=== PATIENT | female | born 1945 | race Two or more races ===

== ENCOUNTER 2017-07-12 12:33 | Emergency (ER) | payer MEDICARE, MEDICAID ==
[~2017-07-12] VITALS: Ht 170.2 cm; Wt 82.7 kg
[~2017-07-12 12:33] MED LIST: ADV50250 IH; ALB0.5UD IH; ALBU18HF2 IH; ALLO300T8 PO; ALPR-623 PO; ARIP30TA7 PO; BUPR150T8 PO; BUPR300T53 PO; CLON-528 PO; FLUP10TA; FLUT16SP10; FURO-150 PO; GLUC1KIT IM; HYDR-565 PO; INSU100V37 SQ; LAMO200T2 PO; LEVO150T73 PO; NAPR220C15 PO; OMEP20CA10 PO; PIOG15TA8 PO; POTASSIUM CHLORIDE PO; PRAV10TA38 PO; PRIM50TA PO; PRIM50TA31 PO; RANO500T3 PO; ROTI1PAT12 TD; SITA25TA3 PO; SPIIN INH; TOP100T PO; TOPI100T18 PO; VARE1TAB11 PO; ZOLP10TA5 PO; [UNRECOGNIZED DRUG - CODE] OP
[2017-07-12] MEDS ORDERED: LIDOcaine 5% patch TP ONE (13:10)
[2017-07-12] MEDS ORDERED: acetaminophen 325mg tablet PO ONE (13:10)
[2017-07-12] MEDS ORDERED: ACET-2765 PO (14:06)
[2017-07-12] MEDS ORDERED: LIDO700A32 TOP (14:06)
[2017-07-12 16:26] VITALS: BP 172/99
== END 2017-07-12 16:27 | disposition home or self-care (01) ==
LOC: ER 12:34
DX: M79.1 Myalgia (principal); R07.81 Pleurodynia; M54.5 Low back pain; G89.29 Other chronic pain; R30.0 Dysuria; R31.9 Hematuria, unspecified; I11.0 Hypertensive heart disease with heart failure; I50.9 Heart failure, unspecified; J44.9 Chronic obstructive pulmonary disease, unspecified; E11.9 Type 2 diabetes mellitus without complications; Z98.890 Other specified postprocedural states; Z79.899 Other long term (current) drug therapy; Z88.0 Allergy status to penicillin; Z88.1 Allergy status to other antibiotic agents
CPT/HCPCS: 71100; 82948; 99284

== ENCOUNTER 2017-08-03 17:56 | Inpatient (IN) | payer MEDICARE, MEDICAID ==
[~2017-08-03] VITALS: Ht 160 cm; Wt 80.0 kg
[~2017-08-03 17:56] MED LIST changes: +ACET-2765 PO; +LIDO700A32 TOP
[2017-08-03 18:56] LABS: BASOPHILS % (AUTO) 0.3 % (0-1); EOSINOPHILS % (AUTO) 0.5 % (0-6); HEMATOCRIT 38.3 % (35.0-45.0); HEMOGLOBIN 12.7 g/dl (12.0-16.0); LYMPHOCYTES # (AUTO) 0.9 X10'3 (1.1-4.8); LYMPHOCYTES % (AUTO) 10.7 % (21-51); MEAN CORPUSCULAR HEMOGLOBIN 31.9 PG (27.0-31.0); MEAN CORPUSCULAR HGB CONC 33.2 % (33.0-36.5); MEAN CORPUSCULAR VOLUME 95.9 FL (78-98); MEAN PLATELET VOLUME 7.1 FL (7.4-10.4); MONOCYTES # (AUTO) 0.4 X10'3 (0-0.9); MONOCYTES % (AUTO) 4.7 % (2-12); NEUTROPHILS # (AUTO) 7.3 X10'3 (1.8-7.7); NEUTROPHILS % (AUTO) 83.8 % (42-75); PLATELET COUNT 242 X10'3 (140-440); RED BLOOD COUNT 3.99 X10'6 (4.20-5.60); RED CELL DISTRIBUTION WIDTH 14.9 % (11.5-14.5); WHITE BLOOD COUNT 8.7 X10'3 (4.5-11.0)
[2017-08-03 19:20] LABS: ALANINE AMINOTRANSFERASE 32 U/L (12-78); ALBUMIN 3.2 G/DL (3.4-5.0); ALBUMIN/GLOBULIN RATIO 1.1 (1.1-1.5); ALKALINE PHOSPHATASE 75 IU/L (46-116); ANION GAP 7 (8-16); ASPARTATE AMINO TRANSFERASE 22 U/L (10-37); BILIRUBIN,TOTAL 0.4 MG/DL (0.1-1.0); BLOOD UREA NITROGEN 13 MG/DL (7-18); CALCIUM 9.4 MG/DL (8.5-10.1); CHLORIDE 107 MMOL/L (99-107); ETHANOL < 0.010 GM/DL (0.0-0.010); GLUCOSE 90 MG/DL (70-104); POTASSIUM 4.1 MMOL/L (3.5-5.1); SODIUM 140 MMOL/L (135-145); TOTAL CARBON DIOXIDE 26.2 MMOL/L (24-32); TOTAL PROTEIN 6.1 G/DL (6.4-8.2); eGFR 40 ML/MIN
[2017-08-03 19:21] LABS: ACETAMINOPHEN < 2.0 UG/ML (10-30)
[2017-08-03 20:13] LABS: CLARITY,URINE CLEAR (Clear); COLOR,URINE YELLOW (Yellow); GLUCOSE, URINE NEGATIVE (Neg); KETONES,URINE TRACE mg/dl (Neg); LEUKOCYTE ESTERASE ,URINE NEGATIVE (Neg); NITRITES, URINE NEGATIVE (Neg); OCCULT BLOOD,URINE NEGATIVE (Neg); PH,URINE 6.5 (4.8-8.0); PROTEIN,URINE NEGATIVE (Neg); UROBILINOGEN,URINE 0.2 E.U/dL (0.2-1.0)
[2017-08-03 20:17] LABS: UA COLLECTION TYPE CLN CATCH MIDSTREAM
[2017-08-03 20:30] LABS: URINE AMPHETAMINE SCREEN NEGATIVE (Neg); URINE BARBITUATE SCREEN NEGATIVE (Neg); URINE BENZODIAZEPINES SCREEN NEGATIVE (Neg); URINE CANNABINOID SCREEN NEGATIVE (Neg); URINE COCAINE SCREEN NEGATIVE (Neg); URINE METHADONE SCREEN NEGATIVE (Neg); URINE OPIATE SCREEN NEGATIVE (Neg); URINE PHENCYCLIDINE SCREEN NEGATIVE (Neg)
[2017-08-03] MEDS ORDERED: LAMO100T2 PO (20:50)
[2017-08-03] MEDS ORDERED: TRAZ-146 PO (20:50)
[2017-08-03] MEDS ORDERED: NITR0.4T51 SL (20:59)
[2017-08-03] MEDS ORDERED: OXYB5TAB11 PO (20:59)
[2017-08-03] MEDS ORDERED: HUM7525 SQ (20:59)
[2017-08-03] MEDS ORDERED: METO-539 PO (20:59)
[2017-08-03] MEDS ORDERED: ASPI-1265 PO (20:59)
[2017-08-03] MEDS ORDERED: ARIP10TA15 PO (20:59)
[2017-08-03] MEDS ORDERED: CHOL400C8 PO (20:59)
[2017-08-03] MEDS ORDERED: LOSA25TA96 PO (20:59)
[2017-08-03] MEDS ORDERED: ATRIN INH (20:59)
[2017-08-03] MEDS ORDERED: ISOS30TA9 PO (20:59)
[2017-08-03] MEDS ORDERED: ASCO1TAB42 (20:59)
[2017-08-03] MEDS ORDERED: OMEG1CAP13 PO (20:59)
[2017-08-03] MEDS: normal saline 1000ml 1,000 ML IV SCH (22:12)
[2017-08-03] MEDS ORDERED: albuterol 2.5 MG/3 ML nebule NEB PRN (22:15)
[2017-08-03] MEDS ORDERED: ipratropium/albuterol 3ml nebule NEB PRN (22:15)
[2017-08-03] MEDS ORDERED: ondansetron/PF 4mg/2ml inj IV PRN (22:15)
[2017-08-03] MEDS ORDERED: magnesium Cl slow-release 64mg tablet PO PRN (22:15)
[2017-08-03] MEDS ORDERED: potassium Cl 20 mEq SR tablet PO PRN ×2 (22:15)
[2017-08-03] MEDS ORDERED: mag hydrox/Alum hydrox/simeth 30ml oral suspension PO PRN (22:15)
[2017-08-03] MEDS ORDERED: potassium Cl 40MEQ/NS 500ml 500 ML IV PRN ×2 (22:15)
[2017-08-03] MEDS ORDERED: magnesium 2GM in 50ml NS 50 ML IV PRN (22:15)
[2017-08-03] MEDS ORDERED: magnesium 4gm in 100ml NS 100 ML IV PRN (22:15)
[2017-08-03] MEDS ORDERED: magnesium hydroxide 30ml (MOM) UD suspension PO PRN (22:15)
[2017-08-03] MEDS ORDERED: nitroGLYCERIN 0.2mg/hour patch TD ONE (22:50)
[2017-08-04] VITALS (7 sets, daily range): BP systolic 91–145; BP diastolic 48–64
[2017-08-04 01:09] LABS: ALANINE AMINOTRANSFERASE 42 U/L (12-78); ALBUMIN 3.4 G/DL (3.4-5.0); ALBUMIN/GLOBULIN RATIO 1.2 (1.1-1.5); ALKALINE PHOSPHATASE 79 IU/L (46-116); ANION GAP 8 (8-16); ASPARTATE AMINO TRANSFERASE 34 U/L (10-37); BILIRUBIN,TOTAL 0.5 MG/DL (0.1-1.0); BLOOD UREA NITROGEN 12 MG/DL (7-18); CALCIUM 9.9 MG/DL (8.5-10.1); CHLORIDE 108 MMOL/L (99-107); GLUCOSE 71 MG/DL (70-104); MAGNESIUM 1.9 MG/DL (1.5-2.4); POTASSIUM 3.6 MMOL/L (3.5-5.1); SODIUM 142 MMOL/L (135-145); TOTAL PROTEIN 6.3 G/DL (6.4-8.2); TROPONIN I < 0.04 NG/ML (0.0-0.05); eGFR 44 ML/MIN
[2017-08-04 03:21] LABS: BASOPHILS % (AUTO) 0.3 % (0-1); EOSINOPHILS # (AUTO) 0.1 X10'3 (0-0.9); EOSINOPHILS % (AUTO) 1.3 % (0-6); HEMATOCRIT 35.4 % (35.0-45.0); HEMOGLOBIN 11.7 g/dl (12.0-16.0); LYMPHOCYTES # (AUTO) 1.6 X10'3 (1.1-4.8); LYMPHOCYTES % (AUTO) 18.4 % (21-51); MEAN CORPUSCULAR HGB CONC 33.2 % (33.0-36.5); MEAN CORPUSCULAR VOLUME 96.4 FL (78-98); MEAN PLATELET VOLUME 7.3 FL (7.4-10.4); MONOCYTES # (AUTO) 0.4 X10'3 (0-0.9); NEUTROPHILS # (AUTO) 6.5 X10'3 (1.8-7.7); PLATELET COUNT 210 X10'3 (140-440); RED BLOOD COUNT 3.67 X10'6 (4.20-5.60); RED CELL DISTRIBUTION WIDTH 14.8 % (11.5-14.5); WHITE BLOOD COUNT 8.6 X10'3 (4.5-11.0)
[2017-08-04] MEDS: ipratropium 0.5 MG/2.5ML nebule IH SCH ×4 (07:38→21:17)
[2017-08-04] MEDS: K and/or MAG REPLACEMENT MC SCH (08:00)
[2017-08-04] MEDS: aripiprazole 5mg tablet PO SCH (08:23)
[2017-08-04] MEDS: allopurinol 300 MG tablet PO SCH (08:24)
[2017-08-04] MEDS: aspirin 81mg tab.chew PO SCH (08:25)
[2017-08-04] MEDS: pantoprazole 40mg Tablet.DR PO SCH (08:25)
[2017-08-04] MEDS: levoTHYROXINE 25mcg tablet PO SCH (08:26)
[2017-08-04] MEDS: losartan 50mg tablet PO SCH (08:27)
[2017-08-04] MEDS: metoprolol succinate 25mg (24-HOUR) SR. Tablet PO SCH (08:27)
[2017-08-04] MEDS: heparin, porcine 5000 units/ml vial SQ SCH ×2 (08:29→20:25)
[2017-08-04] MEDS: normal saline 1000ml 1,000 ML IV SCH (08:44)
[2017-08-05 02:00] VITALS: BP 104/51
[2017-08-05 05:26] LABS: BASOPHILS % (AUTO) 0.5 % (0-1); EOSINOPHILS # (AUTO) 0.4 X10'3 (0-0.9); EOSINOPHILS % (AUTO) 5.2 % (0-6); HEMATOCRIT 36.9 % (35.0-45.0); HEMOGLOBIN 12.4 g/dl (12.0-16.0); LYMPHOCYTES # (AUTO) 1.6 X10'3 (1.1-4.8); LYMPHOCYTES % (AUTO) 22.4 % (21-51); MEAN CORPUSCULAR HEMOGLOBIN 32.2 PG (27.0-31.0); MEAN CORPUSCULAR HGB CONC 33.6 % (33.0-36.5); MEAN CORPUSCULAR VOLUME 95.9 FL (78-98); MEAN PLATELET VOLUME 7.7 FL (7.4-10.4); MONOCYTES # (AUTO) 0.3 X10'3 (0-0.9); MONOCYTES % (AUTO) 4.7 % (2-12); NEUTROPHILS # (AUTO) 4.9 X10'3 (1.8-7.7); NEUTROPHILS % (AUTO) 67.2 % (42-75); PLATELET COUNT 227 X10'3 (140-440); RED BLOOD COUNT 3.85 X10'6 (4.20-5.60); RED CELL DISTRIBUTION WIDTH 15.1 % (11.5-14.5); WHITE BLOOD COUNT 7.2 X10'3 (4.5-11.0)
[2017-08-05 05:47] LABS: ALANINE AMINOTRANSFERASE 30 U/L (12-78); ALBUMIN 3.1 G/DL (3.4-5.0); ALKALINE PHOSPHATASE 73 IU/L (46-116); ANION GAP 11 (8-16); ASPARTATE AMINO TRANSFERASE 20 U/L (10-37); BILIRUBIN,TOTAL 0.3 MG/DL (0.1-1.0); BLOOD UREA NITROGEN 12 MG/DL (7-18); BUN/CREATININE RATIO 10.9 (6.6-38.0); CALCIUM 9.2 MG/DL (8.5-10.1); CHLORIDE 110 MMOL/L (99-107); GLUCOSE 106 MG/DL (70-104); POTASSIUM 3.6 MMOL/L (3.5-5.1); SODIUM 143 MMOL/L (135-145); TOTAL CARBON DIOXIDE 22.2 MMOL/L (24-32); TOTAL PROTEIN 6.2 G/DL (6.4-8.2); eGFR 49 ML/MIN
[2017-08-05] MEDS: acetaminophen 325mg tablet PO PRN ×2 (06:23→20:33)
[2017-08-05 07:00] VITALS: BP 129/53
[2017-08-05] MEDS: levoTHYROXINE 25mcg tablet PO SCH (07:30)
[2017-08-05] MEDS: pantoprazole 40mg Tablet.DR PO SCH (07:31)
[2017-08-05] MEDS: allopurinol 300 MG tablet PO SCH (07:31)
[2017-08-05] MEDS: aripiprazole 5mg tablet PO SCH (07:31)
[2017-08-05] MEDS: aspirin 81mg tab.chew PO SCH (07:32)
[2017-08-05] MEDS: losartan 50mg tablet PO SCH (07:32)
[2017-08-05] MEDS: metoprolol succinate 25mg (24-HOUR) SR. Tablet PO SCH (07:32)
[2017-08-05] MEDS: heparin, porcine 5000 units/ml vial SQ SCH ×2 (07:34→20:34)
[2017-08-05] MEDS: K and/or MAG REPLACEMENT MC SCH (08:00)
[2017-08-05] MEDS: ipratropium 0.5 MG/2.5ML nebule IH SCH ×4 (08:34→20:33)
[2017-08-05 11:00] VITALS: BP 147/56
[2017-08-05] MEDS: bisacodyl 10mg suppository rectal RC STA ×2 (14:16→20:33)
[2017-08-05] MEDS ORDERED: lactulose 20gm/30ml cup PO ONE (14:20)
[2017-08-05 15:00] VITALS: BP 158/88
[2017-08-05 18:00] VITALS: BP 128/75
[2017-08-05] MEDS ORDERED: insulin glargine (Lantus) pen - multi-dose SQ SCH (21:00)
[2017-08-05] MEDS ORDERED: insulin Lispro (HumaLOG) vial - multi-dose SQ SCH (21:05)
[2017-08-05] MEDS ORDERED: glucagon, human recombinant 1mg kit SUBCUT PRN (21:05)
[2017-08-05] MEDS ORDERED: dextrose ORAL solution 15 GM/59 ML bottle PO PRN ×2 (21:05)
[2017-08-05] MEDS ORDERED: MESSAGE TO PHARMACY PO ONE (21:05)
[2017-08-05] MEDS ORDERED: dextrose 50%-water 50ml dispensing syringe IV PRN ×2 (21:05)
[2017-08-05 22:00] VITALS: BP 147/56
[2017-08-06 02:00] VITALS: BP 110/51
[2017-08-06 05:28] LABS: BASOPHILS % (AUTO) 0.4 % (0-1); EOSINOPHILS # (AUTO) 0.3 X10'3 (0-0.9); EOSINOPHILS % (AUTO) 3.7 % (0-6); HEMATOCRIT 37.3 % (35.0-45.0); HEMOGLOBIN 12.6 g/dl (12.0-16.0); LYMPHOCYTES # (AUTO) 1.6 X10'3 (1.1-4.8); LYMPHOCYTES % (AUTO) 22.6 % (21-51); MEAN CORPUSCULAR HEMOGLOBIN 32.1 PG (27.0-31.0); MEAN CORPUSCULAR HGB CONC 33.7 % (33.0-36.5); MEAN CORPUSCULAR VOLUME 95.1 FL (78-98); MEAN PLATELET VOLUME 7.6 FL (7.4-10.4); MONOCYTES # (AUTO) 0.4 X10'3 (0-0.9); MONOCYTES % (AUTO) 6.1 % (2-12); NEUTROPHILS # (AUTO) 4.9 X10'3 (1.8-7.7); NEUTROPHILS % (AUTO) 67.2 % (42-75); PLATELET COUNT 215 X10'3 (140-440); RED BLOOD COUNT 3.92 X10'6 (4.20-5.60); RED CELL DISTRIBUTION WIDTH 15.1 % (11.5-14.5); WHITE BLOOD COUNT 7.3 X10'3 (4.5-11.0)
[2017-08-06 06:07] LABS: ALANINE AMINOTRANSFERASE 25 U/L (12-78); ALBUMIN/GLOBULIN RATIO 0.9 (1.1-1.5); ALKALINE PHOSPHATASE 77 IU/L (46-116); ANION GAP 7 (8-16); ASPARTATE AMINO TRANSFERASE 14 U/L (10-37); BILIRUBIN,TOTAL 0.3 MG/DL (0.1-1.0); BLOOD UREA NITROGEN 10 MG/DL (7-18); BUN/CREATININE RATIO 9.1 (6.6-38.0); CALCIUM 9.2 MG/DL (8.5-10.1); CHLORIDE 112 MMOL/L (99-107); GLUCOSE 108 MG/DL (70-104); MAGNESIUM 2.2 MG/DL (1.5-2.4); POTASSIUM 3.7 MMOL/L (3.5-5.1); SODIUM 145 MMOL/L (135-145); TOTAL CARBON DIOXIDE 26.3 MMOL/L (24-32); TOTAL PROTEIN 6.2 G/DL (6.4-8.2); eGFR 49 ML/MIN
[2017-08-06 07:00] VITALS: BP 134/54
[2017-08-06] MEDS: levoTHYROXINE 25mcg tablet PO SCH (07:02)
[2017-08-06] MEDS: pantoprazole 40mg Tablet.DR PO SCH (07:02)
[2017-08-06] MEDS: metoprolol succinate 25mg (24-HOUR) SR. Tablet PO SCH (07:27)
[2017-08-06] MEDS: aripiprazole 5mg tablet PO SCH (07:27)
[2017-08-06] MEDS: aspirin 81mg tab.chew PO SCH (07:27)
[2017-08-06] MEDS: allopurinol 300 MG tablet PO SCH (07:27)
[2017-08-06] MEDS: losartan 50mg tablet PO SCH (07:27)
[2017-08-06] MEDS: heparin, porcine 5000 units/ml vial SQ SCH (07:33)
[2017-08-06] MEDS: ipratropium 0.5 MG/2.5ML nebule IH SCH (09:15)
[2017-08-06] MEDS: acetaminophen 325mg tablet PO PRN (11:22)
== END 2017-08-06 12:03 | DRG 918 ==
LOC: ER 17:56 → ED HOLD 22:12 → PCU 3S 23:10
PROVIDERS: ADMIT Internal Medicine; ATTEND Internal Medicine
DX: T50.992A Poisoning by other drugs, medicaments and biological substances, intentional self-harm, initial encounter (principal); N17.9 Acute kidney failure, unspecified; I50.9 Heart failure, unspecified; F20.9 Schizophrenia, unspecified; E11.9 Type 2 diabetes mellitus without complications; I11.0 Hypertensive heart disease with heart failure; F31.9 Bipolar disorder, unspecified; E78.5 Hyperlipidemia, unspecified; F41.9 Anxiety disorder, unspecified; I25.10 Atherosclerotic heart disease of native coronary artery without angina pectoris; J44.9 Chronic obstructive pulmonary disease, unspecified; K59.00 Constipation, unspecified; G89.29 Other chronic pain; M10.9 Gout, unspecified; M19.90 Unspecified osteoarthritis, unspecified site; Z60.2 Problems related to living alone; Z88.1 Allergy status to other antibiotic agents; Z88.0 Allergy status to penicillin; Z91.048 Other nonmedicinal substance allergy status; Z79.4 Long term (current) use of insulin; Z79.82 Long term (current) use of aspirin; Z79.899 Other long term (current) drug therapy; Z87.891 Personal history of nicotine dependence; Y92.89 Other specified places as the place of occurrence of the external cause
CPT/HCPCS: 36415; 70450; 74021; 80053; 80305; 80320; 80329; 81003; 82948; 83036; 83735; 84443; 84484; 85025; 87070; 93005; 93306; 94640; 94760; 95816; 99285; J1644; J1815; J7030

== ENCOUNTER 2017-08-06 12:19 | Inpatient (IN) | payer MEDICARE, MEDICAID ==
[~2017-08-06] VITALS: Ht 180.3 cm; Wt 76.7 kg
[~2017-08-06 12:19] MED LIST changes: -ACET-2765 PO; -ADV50250 IH; -ALB0.5UD IH; -ALBU18HF2 IH; -ALPR-623 PO; +ARIP10TA15 PO; -ARIP30TA7 PO; +ASCO1TAB42; +ASPI-1265 PO; +ATRIN INH; -BUPR150T8 PO; +CHOL400C8 PO; -CLON-528 PO; -FLUP10TA; -FLUT16SP10; -FURO-150 PO; -GLUC1KIT IM; +HUM7525 SQ; -HYDR-565 PO; -INSU100V37 SQ; +ISOS30TA9 PO; +LAMO100T2 PO; -LAMO200T2 PO; -LIDO700A32 TOP; +LOSA25TA96 PO; +METO-539 PO; -NAPR220C15 PO; +NITR0.4T51 SL; +OMEG1CAP13 PO; +OXYB5TAB11 PO; -PIOG15TA8 PO; -POTASSIUM CHLORIDE PO; -PRIM50TA PO; -PRIM50TA31 PO; -RANO500T3 PO; -ROTI1PAT12 TD; -SITA25TA3 PO; -SPIIN INH; -TOP100T PO; +TRAZ-146 PO; -VARE1TAB11 PO; -ZOLP10TA5 PO; -[UNRECOGNIZED DRUG - CODE] OP
[2017-08-06] MEDS ORDERED: mag hydrox/Alum hydrox/simeth 30ml oral suspension PO PRN (14:50)
[2017-08-06 15:57] VITALS: BP 125/59
[2017-08-06] MEDS ORDERED: ipratropium/albuterol 3ml nebule NEB PRN (17:15)
[2017-08-06] MEDS ORDERED: ipratropium 0.5 MG/2.5ML nebule IH SCH (19:00)
[2017-08-06] MEDS: oxybutynin 5mg tablet PO SCH (19:09)
[2017-08-06] MEDS: OMEGA-3/DHA/EPA/FISH OIL 1 EACH CAPSULE.DR PO SCH (19:09)
[2017-08-06] MEDS: ascorbic acid 500mg tablet PO SCH (19:09)
[2017-08-06] MEDS: nitroGLYCERIN 0.4mg SUBLingual tab SL PRN (19:10)
[2017-08-06 20:02] VITALS: BP 186/95
[2017-08-06] MEDS: lamoTRIgine 100mg tablet PO SCH (20:07)
[2017-08-06] MEDS: atorvastatin 10mg tablet PO SCH (20:08)
[2017-08-06] MEDS: vitamin E 400 unit capsule PO SCH (20:08)
[2017-08-06] MEDS ORDERED: traZODone 50mg tablet PO SCH (21:00)
[2017-08-07] MEDS: levoTHYROXINE 25mcg tablet PO SCH (06:54)
[2017-08-07] MEDS: pantoprazole 40mg Tablet.DR PO SCH (06:54)
[2017-08-07 07:11] VITALS: BP 140/65
[2017-08-07] MEDS: vitamin E 400 unit capsule PO SCH ×3 (08:40→21:20)
[2017-08-07] MEDS: aspirin 81mg tab.chew PO SCH (08:40)
[2017-08-07] MEDS: cholecalciferol (vitamin D) 400 unit tablet PO SCH (08:40)
[2017-08-07] MEDS: losartan 50mg tablet PO SCH (08:40)
[2017-08-07] MEDS: ascorbic acid 500mg tablet PO SCH ×3 (08:40→21:20)
[2017-08-07] MEDS: allopurinol 300 MG tablet PO SCH (08:40)
[2017-08-07] MEDS: aripiprazole 5mg tablet PO SCH (08:41)
[2017-08-07] MEDS: metoprolol succinate 25mg (24-HOUR) SR. Tablet PO SCH (08:41)
[2017-08-07] MEDS: oxybutynin 5mg tablet PO SCH ×2 (08:41→21:19)
[2017-08-07] MEDS: OMEGA-3/DHA/EPA/FISH OIL 1 EACH CAPSULE.DR PO SCH ×3 (08:41→21:20)
[2017-08-07 10:21] LABS: CHOL/HDL RATIO 2.5 (0.00-4.99); CHOLESTEROL 124 MG/DL (0-200); HDL CHOLESTEROL 49 MG/DL (35-60); LDL CHOLESTEROL 58 MG/DL (50-100); TRIGLYCERIDES 144 MG/DL (20-135)
[2017-08-07] MEDS: acetaminophen 325mg tablet PO PRN ×2 (11:06→18:47)
[2017-08-07 13:08] VITALS: BP 157/63
[2017-08-07] MEDS: nitroGLYCERIN 0.4mg SUBLingual tab SL PRN (18:47)
[2017-08-07 20:00] VITALS: BP 159/67
[2017-08-07] MEDS ORDERED: traZODone 50mg tablet PO SCH (21:00)
[2017-08-07] MEDS: mirtazapine 15mg tablet PO SCH (21:19)
[2017-08-07] MEDS: atorvastatin 10mg tablet PO SCH (21:19)
[2017-08-07] MEDS: lamoTRIgine 100mg tablet PO SCH (21:20)
[2017-08-08] MEDS ORDERED: glucagon, human recombinant 1mg kit SUBCUT PRN (00:05)
[2017-08-08] MEDS ORDERED: dextrose ORAL solution 15 GM/59 ML bottle PO PRN ×2 (00:05)
[2017-08-08] MEDS ORDERED: insulin Lispro (HumaLOG) vial - multi-dose SQ SCH (00:05)
[2017-08-08] MEDS ORDERED: dextrose 50%-water 50ml dispensing syringe IV PRN ×2 (00:05)
[2017-08-08] MEDS ORDERED: MESSAGE TO PHARMACY PO ONE (00:05)
[2017-08-08 07:25] VITALS: BP 145/85
[2017-08-08] MEDS: pantoprazole 40mg Tablet.DR PO SCH (07:49)
[2017-08-08] MEDS: levoTHYROXINE 25mcg tablet PO SCH (07:49)
[2017-08-08] MEDS: losartan 50mg tablet PO SCH (08:00)
[2017-08-08] MEDS: OMEGA-3/DHA/EPA/FISH OIL 1 EACH CAPSULE.DR PO SCH ×2 (08:00→20:26)
[2017-08-08] MEDS: ascorbic acid 500mg tablet PO SCH ×2 (08:00→20:27)
[2017-08-08] MEDS: aripiprazole 5mg tablet PO SCH ×3 (08:00→09:34)
[2017-08-08] MEDS: vitamin E 400 unit capsule PO SCH ×2 (08:00→20:27)
[2017-08-08] MEDS: metoprolol succinate 25mg (24-HOUR) SR. Tablet PO SCH (08:00)
[2017-08-08] MEDS: cholecalciferol (vitamin D) 400 unit tablet PO SCH (08:00)
[2017-08-08] MEDS: oxybutynin 5mg tablet PO SCH ×2 (08:00→20:28)
[2017-08-08] MEDS: nitroGLYCERIN 0.4mg SUBLingual tab SL PRN (08:15)
[2017-08-08] MEDS: aspirin 81mg tab.chew PO SCH (08:30)
[2017-08-08] MEDS: allopurinol 300 MG tablet PO SCH (08:30)
[2017-08-08] MEDS: acetaminophen 325mg tablet PO PRN ×2 (09:26→16:00)
[2017-08-08] MEDS: magnesium hydroxide 30ml (MOM) UD suspension PO PRN (11:04)
[2017-08-08 19:30] VITALS: BP 175/74
[2017-08-08] MEDS: atorvastatin 10mg tablet PO SCH (20:26)
[2017-08-08] MEDS: mirtazapine 15mg tablet PO SCH (20:26)
[2017-08-08] MEDS: lamoTRIgine 100mg tablet PO SCH (20:26)
[2017-08-08] MEDS: traZODone 50mg tablet PO SCH (20:27)
[2017-08-08] MEDS ORDERED: aripiprazole 5mg tablet PO SCH (21:00)
[2017-08-08] MEDS ORDERED: Insulin Detemir pen SQ SCH (21:00)
[2017-08-09 03:11] VITALS: BP 167/75
[2017-08-09] MEDS: nitroGLYCERIN 0.4mg SUBLingual tab SL PRN ×3 (04:10→04:51)
[2017-08-09 04:36] VITALS: BP 179/79
[2017-08-09 04:44] VITALS: BP 170/76
[2017-08-09 04:59] VITALS: BP 170/70
[2017-08-09] MEDS: acetaminophen 325mg tablet PO PRN ×2 (05:05→21:40)
[2017-08-09] MEDS: levoTHYROXINE 25mcg tablet PO SCH (07:45)
[2017-08-09] MEDS: pantoprazole 40mg Tablet.DR PO SCH (07:45)
[2017-08-09] MEDS: NOVOLOG FLEX SQ SCH ×3 (07:52→17:40)
[2017-08-09] MEDS ORDERED: dextrose ORAL solution 15 GM/59 ML bottle PO PRN (07:55)
[2017-08-09] MEDS ORDERED: dextrose 50%-water 50ml dispensing syringe IV PRN ×2 (07:55)
[2017-08-09 08:00] VITALS: BP 186/72
[2017-08-09] MEDS: losartan 50mg tablet PO SCH (08:24)
[2017-08-09] MEDS: vitamin E 400 unit capsule PO SCH ×2 (08:24→21:35)
[2017-08-09] MEDS: cholecalciferol (vitamin D) 400 unit tablet PO SCH (08:24)
[2017-08-09] MEDS: OMEGA-3/DHA/EPA/FISH OIL 1 EACH CAPSULE.DR PO SCH ×2 (08:24→21:35)
[2017-08-09] MEDS: allopurinol 300 MG tablet PO SCH (08:24)
[2017-08-09] MEDS: oxybutynin 5mg tablet PO SCH ×2 (08:25→21:34)
[2017-08-09] MEDS: metoprolol succinate 25mg (24-HOUR) SR. Tablet PO SCH (08:25)
[2017-08-09] MEDS: ascorbic acid 500mg tablet PO SCH ×2 (08:25→21:36)
[2017-08-09] MEDS: aspirin 81mg tab.chew PO SCH (08:25)
[2017-08-09] MEDS: insulin NPH/REG insulin (NovoLIN 70/30) 10ml vial SQ SCH ×2 (10:01→21:29)
[2017-08-09] MEDS: magnesium hydroxide 30ml (MOM) UD suspension PO PRN (17:17)
[2017-08-09 20:00] VITALS: BP 119/61
[2017-08-09] MEDS: mirtazapine 15mg tablet PO SCH (21:37)
[2017-08-09] MEDS: atorvastatin 10mg tablet PO SCH (21:37)
[2017-08-09] MEDS: aripiprazole 5mg tablet PO SCH (21:37)
[2017-08-09] MEDS: lamoTRIgine 100mg tablet PO SCH (21:37)
[2017-08-09] MEDS: traZODone 50mg tablet PO SCH (21:37)
[2017-08-09] MEDS: LORazepam 0.5 MG tablet PO PRN (21:55)
[2017-08-10] MEDS: NOVOLOG FLEX SQ SCH ×3 (07:22→17:21)
[2017-08-10] MEDS: pantoprazole 40mg Tablet.DR PO SCH (07:25)
[2017-08-10] MEDS: levoTHYROXINE 25mcg tablet PO SCH (07:25)
[2017-08-10] MEDS: losartan 50mg tablet PO SCH (07:26)
[2017-08-10] MEDS: insulin NPH/REG insulin (NovoLIN 70/30) 10ml vial SQ SCH ×2 (08:00→20:00)
[2017-08-10] MEDS: oxybutynin 5mg tablet PO SCH ×2 (09:07→21:33)
[2017-08-10] MEDS: OMEGA-3/DHA/EPA/FISH OIL 1 EACH CAPSULE.DR PO SCH ×2 (09:07→21:36)
[2017-08-10] MEDS: vitamin E 400 unit capsule PO SCH ×2 (09:08→21:27)
[2017-08-10] MEDS: metoprolol succinate 25mg (24-HOUR) SR. Tablet PO SCH (09:08)
[2017-08-10] MEDS: ascorbic acid 500mg tablet PO SCH ×2 (09:08→21:29)
[2017-08-10] MEDS: cholecalciferol (vitamin D) 400 unit tablet PO SCH (09:08)
[2017-08-10] MEDS: aspirin 81mg tab.chew PO SCH (09:09)
[2017-08-10] MEDS: allopurinol 300 MG tablet PO SCH (09:09)
[2017-08-10] MEDS ORDERED: psyllium seed 3.4 gm packet PO PRN (15:45)
[2017-08-10 20:00] VITALS: BP 142/86
[2017-08-10] MEDS: traZODone 50mg tablet PO SCH ×2 (21:00→21:27)
[2017-08-10] MEDS: mirtazapine 15mg tablet PO SCH (21:22)
[2017-08-10] MEDS: aripiprazole 5mg tablet PO SCH (21:25)
[2017-08-10] MEDS: lamoTRIgine 100mg tablet PO SCH (21:26)
[2017-08-10] MEDS: atorvastatin 10mg tablet PO SCH (21:35)
[2017-08-11] MEDS: levoTHYROXINE 25mcg tablet PO SCH (07:47)
[2017-08-11] MEDS: NOVOLOG FLEX SQ SCH ×3 (07:56→18:30)
[2017-08-11 08:00] VITALS: BP 170/84
[2017-08-11] MEDS: allopurinol 300 MG tablet PO SCH (08:04)
[2017-08-11] MEDS: ascorbic acid 500mg tablet PO SCH ×2 (08:04→21:56)
[2017-08-11] MEDS: losartan 50mg tablet PO SCH (08:04)
[2017-08-11] MEDS: cholecalciferol (vitamin D) 400 unit tablet PO SCH (08:04)
[2017-08-11] MEDS: OMEGA-3/DHA/EPA/FISH OIL 1 EACH CAPSULE.DR PO SCH ×2 (08:04→21:57)
[2017-08-11] MEDS: metoprolol succinate 25mg (24-HOUR) SR. Tablet PO SCH (08:04)
[2017-08-11] MEDS: pantoprazole 40mg Tablet.DR PO SCH (08:04)
[2017-08-11] MEDS: vitamin E 400 unit capsule PO SCH ×2 (08:04→21:57)
[2017-08-11] MEDS: oxybutynin 5mg tablet PO SCH ×2 (08:04→21:58)
[2017-08-11] MEDS: aspirin 81mg tab.chew PO SCH (08:04)
[2017-08-11] MEDS: insulin NPH/REG insulin (NovoLIN 70/30) 10ml vial SQ SCH ×2 (08:53→20:00)
[2017-08-11] MEDS: magnesium hydroxide 30ml (MOM) UD suspension PO PRN (10:44)
[2017-08-11 19:28] VITALS: BP 162/72
[2017-08-11] MEDS: traZODone 50mg tablet PO SCH (21:00)
[2017-08-11] MEDS: aripiprazole 5mg tablet PO SCH (21:55)
[2017-08-11] MEDS: mirtazapine 15mg tablet PO SCH (21:55)
[2017-08-11] MEDS: atorvastatin 10mg tablet PO SCH (21:58)
[2017-08-11] MEDS: lamoTRIgine 100mg tablet PO SCH (21:59)
[2017-08-12] MEDS: LORazepam 0.5 MG tablet PO PRN ×2 (01:17→17:11)
[2017-08-12] MEDS: NOVOLOG FLEX SQ SCH ×4 (07:00→17:40)
[2017-08-12] MEDS: pantoprazole 40mg Tablet.DR PO SCH (07:36)
[2017-08-12] MEDS: levoTHYROXINE 25mcg tablet PO SCH (07:36)
[2017-08-12 07:37] VITALS: BP 143/71
[2017-08-12] MEDS: insulin NPH/REG insulin (NovoLIN 70/30) 10ml vial SQ SCH ×2 (07:41→21:00)
[2017-08-12] MEDS: vitamin E 400 unit capsule PO SCH ×2 (08:10→20:00)
[2017-08-12] MEDS: cholecalciferol (vitamin D) 400 unit tablet PO SCH (08:10)
[2017-08-12] MEDS: allopurinol 300 MG tablet PO SCH (08:10)
[2017-08-12] MEDS: losartan 50mg tablet PO SCH (08:10)
[2017-08-12] MEDS: ascorbic acid 500mg tablet PO SCH ×2 (08:11→20:37)
[2017-08-12] MEDS: aspirin 81mg tab.chew PO SCH (08:11)
[2017-08-12] MEDS: OMEGA-3/DHA/EPA/FISH OIL 1 EACH CAPSULE.DR PO SCH ×2 (08:11→20:37)
[2017-08-12] MEDS: oxybutynin 5mg tablet PO SCH ×2 (08:11→20:38)
[2017-08-12] MEDS: metoprolol succinate 25mg (24-HOUR) SR. Tablet PO SCH (08:11)
[2017-08-12] MEDS: magnesium hydroxide 30ml (MOM) UD suspension PO PRN (13:17)
[2017-08-12] MEDS: nitroGLYCERIN 0.4mg SUBLingual tab SL PRN (18:28)
[2017-08-12 20:00] VITALS: BP 161/74
[2017-08-12] MEDS: atorvastatin 10mg tablet PO SCH (20:37)
[2017-08-12] MEDS: mirtazapine 15mg tablet PO SCH (20:37)
[2017-08-12] MEDS: lamoTRIgine 100mg tablet PO SCH (20:37)
[2017-08-12] MEDS: aripiprazole 5mg tablet PO SCH (20:37)
[2017-08-12] MEDS: traZODone 50mg tablet PO SCH (20:44)
[2017-08-13] MEDS: NOVOLOG FLEX SQ SCH ×3 (07:00→17:28)
[2017-08-13] MEDS: vitamin E 400 unit capsule PO SCH ×2 (07:41→20:14)
[2017-08-13] MEDS: ascorbic acid 500mg tablet PO SCH ×2 (07:41→20:14)
[2017-08-13] MEDS: cholecalciferol (vitamin D) 400 unit tablet PO SCH (07:41)
[2017-08-13] MEDS: pantoprazole 40mg Tablet.DR PO SCH (07:42)
[2017-08-13] MEDS: losartan 50mg tablet PO SCH (07:42)
[2017-08-13] MEDS: levoTHYROXINE 25mcg tablet PO SCH (07:42)
[2017-08-13] MEDS: metoprolol succinate 25mg (24-HOUR) SR. Tablet PO SCH (07:42)
[2017-08-13] MEDS: oxybutynin 5mg tablet PO SCH ×2 (07:42→20:13)
[2017-08-13] MEDS: OMEGA-3/DHA/EPA/FISH OIL 1 EACH CAPSULE.DR PO SCH ×2 (07:42→20:13)
[2017-08-13] MEDS: insulin NPH/REG insulin (NovoLIN 70/30) 10ml vial SQ SCH ×2 (07:52→20:32)
[2017-08-13 08:00] VITALS: BP 141/62
[2017-08-13] MEDS: allopurinol 300 MG tablet PO SCH (10:20)
[2017-08-13] MEDS: aspirin 81mg tab.chew PO SCH (10:20)
[2017-08-13] MEDS ORDERED: LEVO25TA7 PO (12:13)
[2017-08-13] MEDS ORDERED: ALLO300T8 PO (12:13)
[2017-08-13] MEDS ORDERED: ATOR10TA PO (12:13)
[2017-08-13] MEDS ORDERED: Miscellaneous SQ (12:13)
[2017-08-13] MEDS ORDERED: ASPI-1265 PO (12:13)
[2017-08-13] MEDS ORDERED: LOSA50TA37 PO (12:13)
[2017-08-13] MEDS ORDERED: OXYB5TAB11 PO (12:13)
[2017-08-13] MEDS ORDERED: ARIP2TAB11 PO (12:13)
[2017-08-13] MEDS ORDERED: ATRIN INH (12:13)
[2017-08-13] MEDS ORDERED: NITR0.4T51 SL (12:13)
[2017-08-13] MEDS ORDERED: METO-395 PO (12:13)
[2017-08-13] MEDS ORDERED: HUM10VIA SQ (12:13)
[2017-08-13] MEDS ORDERED: MIRT15TA8 PO (12:13)
[2017-08-13] MEDS ORDERED: LAMO100T89 PO (12:13)
[2017-08-13] MEDS ORDERED: PANT40TA4 PO (12:13)
[2017-08-13] MEDS ORDERED: ARIP20TA10 PO (12:13)
[2017-08-13] MEDS ORDERED: VITD400T PO (12:13)
[2017-08-13] MEDS ORDERED: ISOS10TA2 PO (12:13)
[2017-08-13] MEDS: LORazepam 0.5 MG tablet PO PRN (16:27)
[2017-08-13 19:42] VITALS: BP 148/59
[2017-08-13] MEDS: lamoTRIgine 100mg tablet PO SCH (20:17)
[2017-08-13] MEDS: aripiprazole 5mg tablet PO SCH (20:17)
[2017-08-13] MEDS: mirtazapine 15mg tablet PO SCH (20:18)
[2017-08-13] MEDS: atorvastatin 10mg tablet PO SCH (20:18)
[2017-08-13] MEDS: traZODone 50mg tablet PO SCH (20:33)
[2017-08-14] MEDS: NOVOLOG FLEX SQ SCH ×2 (07:00→12:53)
[2017-08-14] MEDS: pantoprazole 40mg Tablet.DR PO SCH (07:05)
[2017-08-14] MEDS: levoTHYROXINE 25mcg tablet PO SCH (07:05)
[2017-08-14] MEDS: insulin NPH/REG insulin (NovoLIN 70/30) 10ml vial SQ SCH (07:15)
[2017-08-14 08:00] VITALS: BP 158/60
[2017-08-14] MEDS: aspirin 81mg tab.chew PO SCH (08:15)
[2017-08-14] MEDS: metoprolol succinate 25mg (24-HOUR) SR. Tablet PO SCH (08:16)
[2017-08-14] MEDS: cholecalciferol (vitamin D) 400 unit tablet PO SCH (08:16)
[2017-08-14] MEDS: allopurinol 300 MG tablet PO SCH (08:16)
[2017-08-14] MEDS: losartan 50mg tablet PO SCH (08:16)
[2017-08-14] MEDS: oxybutynin 5mg tablet PO SCH (08:16)
[2017-08-14] MEDS: vitamin E 400 unit capsule PO SCH (08:16)
[2017-08-14] MEDS: ascorbic acid 500mg tablet PO SCH (08:16)
[2017-08-14] MEDS: OMEGA-3/DHA/EPA/FISH OIL 1 EACH CAPSULE.DR PO SCH (08:39)
[2017-08-14] MEDS: LORazepam 0.5 MG tablet PO PRN (13:46)
== END 2017-08-14 15:00 | disposition home or self-care (01) | DRG 885 ==
LOC: EEVIPCON → ADULT MH 12:22
PROVIDERS: ADMIT Psychiatry & Neurology Psychiatry; ATTEND Psychiatry & Neurology Psychiatry
DX: F25.1 Schizoaffective disorder, depressive type (principal); I11.0 Hypertensive heart disease with heart failure; I50.9 Heart failure, unspecified; R45.851 Suicidal ideations; J44.9 Chronic obstructive pulmonary disease, unspecified; F32.9 Major depressive disorder, single episode, unspecified; E03.9 Hypothyroidism, unspecified; F60.9 Personality disorder, unspecified; I25.10 Atherosclerotic heart disease of native coronary artery without angina pectoris; M10.9 Gout, unspecified; K21.9 Gastro-esophageal reflux disease without esophagitis; N32.81 Overactive bladder; Z88.0 Allergy status to penicillin; Z88.8 Allergy status to other drugs, medicaments and biological substances; Z79.899 Other long term (current) drug therapy; Z79.82 Long term (current) use of aspirin; Z79.4 Long term (current) use of insulin; Z81.1 Family history of alcohol abuse and dependence
CPT/HCPCS: 36415; 80061; 82948; 93005; 94760; 99285; J1610; J1815

== ENCOUNTER 2017-08-30 11:12 | Inpatient (IN) | payer MEDICARE, MEDICAID ==
[~2017-08-30 11:12] MED LIST changes: -ARIP10TA15 PO; +ARIP20TA10 PO; +ARIP2TAB11 PO; +ATOR10TA PO; -BUPR300T53 PO; -CHOL400C8 PO; +HUM10VIA SQ; -HUM7525 SQ; +ISOS10TA2 PO; -ISOS30TA9 PO; -LAMO100T2 PO; +LAMO100T89 PO; -LEVO150T73 PO; +LEVO25TA7 PO; -LOSA25TA96 PO; +LOSA50TA37 PO; +METO-395 PO; -METO-539 PO; +MIRT15TA8 PO; +Miscellaneous SQ; -OMEP20CA10 PO; +PANT40TA4 PO; -PRAV10TA38 PO; -TOPI100T18 PO; -TRAZ-146 PO; +VITD400T PO
[2017-08-30 12:05] LABS: BASOPHILS % (AUTO) 0.4 % (0-1); EOSINOPHILS # (AUTO) 0.1 X10'3 (0-0.9); HEMATOCRIT 37.8 % (35.0-45.0); HEMOGLOBIN 12.9 g/dl (12.0-16.0); LYMPHOCYTES # (AUTO) 1.4 X10'3 (1.1-4.8); LYMPHOCYTES % (AUTO) 18.4 % (21-51); MEAN CORPUSCULAR HEMOGLOBIN 32.7 PG (27.0-31.0); MEAN CORPUSCULAR HGB CONC 34.1 % (33.0-36.5); MEAN CORPUSCULAR VOLUME 95.8 FL (78-98); MEAN PLATELET VOLUME 7.8 FL (7.4-10.4); MONOCYTES # (AUTO) 0.4 X10'3 (0-0.9); MONOCYTES % (AUTO) 5.8 % (2-12); NEUTROPHILS # (AUTO) 5.6 X10'3 (1.8-7.7); NEUTROPHILS % (AUTO) 73.4 % (42-75); PLATELET COUNT 232 X10'3 (140-440); RED BLOOD COUNT 3.95 X10'6 (4.20-5.60); RED CELL DISTRIBUTION WIDTH 15.3 % (11.5-14.5); WHITE BLOOD COUNT 7.6 X10'3 (4.5-11.0)
[2017-08-30 12:06] LABS: INR 1.1 INR; PARTIAL THROMBOPLASTIN TIME 25 SECONDS (22-32)
[2017-08-30 12:25] LABS: ALANINE AMINOTRANSFERASE 25 U/L (12-78); ALBUMIN 3.4 G/DL (3.4-5.0); ALBUMIN/GLOBULIN RATIO 1.1 (1.1-1.5); ALKALINE PHOSPHATASE 100 IU/L (46-116); ANION GAP 7 (8-16); ASPARTATE AMINO TRANSFERASE 17 U/L (10-37); BILIRUBIN,TOTAL 0.5 MG/DL (0.1-1.0); BLOOD UREA NITROGEN 13 MG/DL (7-18); BUN/CREATININE RATIO 11.4 (6.6-38.0); CALCIUM 9.6 MG/DL (8.5-10.1); CHLORIDE 105 MMOL/L (99-107); CREATININE 1.14 MG/DL (0.40-0.90); ETHANOL < 0.010 GM/DL (0.0-0.010); GLUCOSE 157 MG/DL (70-104); SODIUM 140 MMOL/L (135-145); TOTAL CARBON DIOXIDE 28.3 MMOL/L (24-32); TOTAL PROTEIN 6.5 G/DL (6.4-8.2); eGFR 47 ML/MIN
[2017-08-30] MEDS ORDERED: magnesium hydroxide 30ml (MOM) UD suspension PO PRN (16:15)
[2017-08-30] MEDS ORDERED: mag hydrox/Alum hydrox/simeth 30ml oral suspension PO PRN (16:15)
[2017-08-30] MEDS ORDERED: ondansetron/PF 4mg/2ml inj IV PRN (16:15)
[2017-08-30] MEDS ORDERED: nitroGLYCERIN 0.4mg SUBLingual tab SL PRN (16:20)
[2017-08-30] MEDS ORDERED: MESSAGE TO PHARMACY PO ONE (16:25)
[2017-08-30] MEDS ORDERED: glucagon, human recombinant 1mg kit SUBCUT PRN (16:25)
[2017-08-30] MEDS ORDERED: dextrose 50%-water 50ml dispensing syringe IV PRN ×2 (16:25)
[2017-08-30] MEDS ORDERED: dextrose ORAL solution 15 GM/59 ML bottle PO PRN ×2 (16:25)
[2017-08-30] MEDS: sodium chloride 0.45% 1,000 ML IV SCH (16:43)
[2017-08-30] MEDS ORDERED: ipratropium/albuterol 3ml nebule IH PRN (16:50)
[2017-08-30] MEDS ORDERED: OMEP-50 (17:03)
[2017-08-30] MEDS ORDERED: LOSA100T28 (17:03)
[2017-08-30 19:40] VITALS: BP 146/58
[2017-08-30] MEDS ORDERED: ASCORBIC ACID SCH (20:00)
[2017-08-30] MEDS ORDERED: [UNRECOGNIZED DRUG - OTHER] SCH (20:00)
[2017-08-30] MEDS ORDERED: BIOTIN SCH (20:00)
[2017-08-30] MEDS ORDERED: VITAMIN E SCH (20:00)
[2017-08-30] MEDS ORDERED: insulin NPH/REG insulin (NovoLIN 70/30) 10ml vial SQ SCH (20:00)
[2017-08-30] MEDS: atorvastatin 10mg tablet PO SCH (20:37)
[2017-08-30] MEDS: aripiprazole 5mg tablet PO SCH (20:38)
[2017-08-30] MEDS: mirtazapine 15mg tablet PO SCH (20:38)
[2017-08-30] MEDS: oxybutynin 5mg tablet PO SCH (20:38)
[2017-08-30] MEDS: lamoTRIgine 100mg tablet PO SCH (20:39)
[2017-08-30] MEDS ORDERED: non-formulary drug (Aripiprazole 1 TAB) PO SCH (21:00)
[2017-08-31] VITALS: BP 105/51
[2017-08-31 00:30] VITALS: BP_SYST 105; BP_SYST 122; BP_SYST 129; BP_DIAS 51; BP_DIAS 54; BP_DIAS 55
[2017-08-31] MEDS: sodium chloride 0.45% 1,000 ML IV SCH (05:51)
[2017-08-31 06:16] LABS: BASOPHILS % (AUTO) 0.7 % (0-1); EOSINOPHILS # (AUTO) 0.2 X10'3 (0-0.9); EOSINOPHILS % (AUTO) 3.3 % (0-6); HEMATOCRIT 37.5 % (35.0-45.0); HEMOGLOBIN 12.8 g/dl (12.0-16.0); LYMPHOCYTES % (AUTO) 29.8 % (21-51); MEAN CORPUSCULAR HEMOGLOBIN 32.8 PG (27.0-31.0); MEAN CORPUSCULAR HGB CONC 34.1 % (33.0-36.5); MEAN CORPUSCULAR VOLUME 96.3 FL (78-98); MEAN PLATELET VOLUME 7.8 FL (7.4-10.4); MONOCYTES # (AUTO) 0.5 X10'3 (0-0.9); MONOCYTES % (AUTO) 6.7 % (2-12); NEUTROPHILS % (AUTO) 59.5 % (42-75); PLATELET COUNT 225 X10'3 (140-440); RED BLOOD COUNT 3.89 X10'6 (4.20-5.60); RED CELL DISTRIBUTION WIDTH 15.3 % (11.5-14.5); WHITE BLOOD COUNT 6.8 X10'3 (4.5-11.0)
[2017-08-31 06:28] LABS: ALANINE AMINOTRANSFERASE 23 U/L (12-78); ALBUMIN 3.1 G/DL (3.4-5.0); ALKALINE PHOSPHATASE 95 IU/L (46-116); ANION GAP 9 (8-16); ASPARTATE AMINO TRANSFERASE 16 U/L (10-37); BILIRUBIN,TOTAL 0.4 MG/DL (0.1-1.0); BLOOD UREA NITROGEN 13 MG/DL (7-18); BUN/CREATININE RATIO 14.3 (6.6-38.0); CHLORIDE 108 MMOL/L (99-107); CHOL/HDL RATIO 2.2 (0.00-4.99); CHOLESTEROL 106 MG/DL (0-200); CREATININE 0.91 MG/DL (0.40-0.90); GLUCOSE 146 MG/DL (70-104); HDL CHOLESTEROL 49 MG/DL (35-60); LDL CHOLESTEROL 43 MG/DL (50-100); POTASSIUM 4.2 MMOL/L (3.5-5.1); SODIUM 141 MMOL/L (135-145); TOTAL CARBON DIOXIDE 24.5 MMOL/L (24-32); TOTAL PROTEIN 6.1 G/DL (6.4-8.2); TRIGLYCERIDES 140 MG/DL (20-135); eGFR 61 ML/MIN
[2017-08-31 07:00] VITALS: BP 152/78
[2017-08-31] MEDS: metoprolol succinate 25mg (24-HOUR) SR. Tablet PO SCH (07:03)
[2017-08-31] MEDS: NOVOLIN SQ SCH ×2 (08:00→20:00)
[2017-08-31] MEDS ORDERED: losartan 50mg tablet PO SCH (08:00)
[2017-08-31] MEDS: cholecalciferol (vitamin D) 400 unit tablet PO SCH (08:10)
[2017-08-31] MEDS: pantoprazole 40mg Tablet.DR PO SCH (08:10)
[2017-08-31] MEDS: aspirin 81mg tab.chew PO SCH (08:10)
[2017-08-31] MEDS: allopurinol 300 MG tablet PO SCH (08:10)
[2017-08-31] MEDS: levoTHYROXINE 25mcg tablet PO SCH (08:10)
[2017-08-31] MEDS: oxybutynin 5mg tablet PO SCH ×2 (08:10→20:10)
[2017-08-31] MEDS ORDERED: LORazepam 2 mg/ml vial IV ONE (10:00)
[2017-08-31] MEDS: acetaminophen 325mg tablet PO PRN (17:47)
[2017-08-31 18:00] VITALS: BP 120/61
[2017-08-31] MEDS: insulin Lispro (HumaLOG) vial - multi-dose SQ SCH (18:54)
[2017-08-31] MEDS: mirtazapine 15mg tablet PO SCH (20:09)
[2017-08-31] MEDS: docusate sod 100mg capsule PO SCH (20:10)
[2017-08-31] MEDS: lamoTRIgine 100mg tablet PO SCH (20:12)
[2017-08-31] MEDS: atorvastatin 10mg tablet PO SCH (20:13)
[2017-08-31] MEDS: aripiprazole 5mg tablet PO SCH (21:00)
[2017-08-31] MEDS ORDERED: LORazepam 0.5 MG tablet PO ONE (21:05)
[2017-09-01] VITALS: BP 141/58
[2017-09-01 07:22] VITALS: BP 166/65
[2017-09-01 08:00] VITALS: BP 109/67
[2017-09-01] MEDS: pantoprazole 40mg Tablet.DR PO SCH (09:17)
[2017-09-01] MEDS: levoTHYROXINE 25mcg tablet PO SCH (09:17)
[2017-09-01] MEDS: losartan 50mg tablet PO SCH (09:18)
[2017-09-01] MEDS: allopurinol 300 MG tablet PO SCH (09:18)
[2017-09-01] MEDS: docusate sod 100mg capsule PO SCH ×2 (09:18→20:12)
[2017-09-01] MEDS: oxybutynin 5mg tablet PO SCH ×2 (09:18→20:12)
[2017-09-01] MEDS: metoprolol succinate 25mg (24-HOUR) SR. Tablet PO SCH (09:19)
[2017-09-01] MEDS: aspirin 81mg tab.chew PO SCH (09:19)
[2017-09-01] MEDS: cholecalciferol (vitamin D) 400 unit tablet PO SCH (09:19)
[2017-09-01] MEDS: insulin Lispro (HumaLOG) vial - multi-dose SQ SCH ×2 (09:26→18:48)
[2017-09-01 11:00] VITALS: BP 109/67
[2017-09-01 11:54] LABS: D-DIMER 0.58 MG/L FEU (0-0.50)
[2017-09-01] MEDS: NUT.TX.GLUC.INTOLER,LAC-FR,REG (BOOST GLUCOSE CONTROL) 237 ML PO SCH ×2 (13:00→18:35)
[2017-09-01] MEDS: acetaminophen 325mg tablet PO PRN (15:16)
[2017-09-01] MEDS ORDERED: LIDO700A47 TP (16:25)
[2017-09-01 20:00] VITALS: BP 141/75
[2017-09-01] MEDS: lamoTRIgine 100mg tablet PO SCH (20:11)
[2017-09-01] MEDS: mirtazapine 15mg tablet PO SCH (20:13)
[2017-09-01] MEDS: atorvastatin 10mg tablet PO SCH (20:13)
[2017-09-01] MEDS: aripiprazole 5mg tablet PO SCH (20:14)
[2017-09-01] MEDS ORDERED: LORazepam 0.5 MG tablet PO PRN (21:20)
[2017-09-02] VITALS: BP 149/72
[2017-09-02] MEDS: levoTHYROXINE 25mcg tablet PO SCH (07:05)
[2017-09-02] MEDS: losartan 50mg tablet PO SCH (07:06)
[2017-09-02] MEDS: metoprolol succinate 25mg (24-HOUR) SR. Tablet PO SCH (07:06)
[2017-09-02] MEDS: oxybutynin 5mg tablet PO SCH (07:06)
[2017-09-02] MEDS: pantoprazole 40mg Tablet.DR PO SCH (07:06)
[2017-09-02] MEDS: docusate sod 100mg capsule PO SCH (07:06)
[2017-09-02] MEDS: cholecalciferol (vitamin D) 400 unit tablet PO SCH (07:06)
[2017-09-02] MEDS: acetaminophen 325mg tablet PO PRN ×2 (07:06→15:51)
[2017-09-02 07:07] LABS: BASOPHILS % (AUTO) 0.7 % (0-1); EOSINOPHILS # (AUTO) 0.2 X10'3 (0-0.9); EOSINOPHILS % (AUTO) 3.2 % (0-6); HEMATOCRIT 32.8 % (35.0-45.0); HEMOGLOBIN 11.5 g/dl (12.0-16.0); LYMPHOCYTES # (AUTO) 1.6 X10'3 (1.1-4.8); LYMPHOCYTES % (AUTO) 25.4 % (21-51); MEAN CORPUSCULAR HEMOGLOBIN 33.2 PG (27.0-31.0); MEAN CORPUSCULAR HGB CONC 35.1 % (33.0-36.5); MEAN CORPUSCULAR VOLUME 94.4 FL (78-98); MEAN PLATELET VOLUME 7.9 FL (7.4-10.4); MONOCYTES # (AUTO) 0.4 X10'3 (0-0.9); MONOCYTES % (AUTO) 6.3 % (2-12); NEUTROPHILS # (AUTO) 4.1 X10'3 (1.8-7.7); NEUTROPHILS % (AUTO) 64.4 % (42-75); PLATELET COUNT 199 X10'3 (140-440); RED BLOOD COUNT 3.48 X10'6 (4.20-5.60); RED CELL DISTRIBUTION WIDTH 14.8 % (11.5-14.5); WHITE BLOOD COUNT 6.3 X10'3 (4.5-11.0)
[2017-09-02 07:12] LABS: ALANINE AMINOTRANSFERASE 20 U/L (12-78); ALBUMIN 2.7 G/DL (3.4-5.0); ALKALINE PHOSPHATASE 82 IU/L (46-116); ANION GAP 6 (8-16); ASPARTATE AMINO TRANSFERASE 15 U/L (10-37); BILIRUBIN,TOTAL 0.3 MG/DL (0.1-1.0); BLOOD UREA NITROGEN 17 MG/DL (7-18); BUN/CREATININE RATIO 18.3 (6.6-38.0); CALCIUM 8.8 MG/DL (8.5-10.1); CHLORIDE 109 MMOL/L (99-107); CREATININE 0.93 MG/DL (0.40-0.90); GLUCOSE 184 MG/DL (70-104); POTASSIUM 4.1 MMOL/L (3.5-5.1); SODIUM 142 MMOL/L (135-145); TOTAL CARBON DIOXIDE 26.7 MMOL/L (24-32); TOTAL PROTEIN 5.5 G/DL (6.4-8.2); eGFR 60 ML/MIN
[2017-09-02 08:00] VITALS: BP 187/83
[2017-09-02] MEDS: NUT.TX.GLUC.INTOLER,LAC-FR,REG (BOOST GLUCOSE CONTROL) 237 ML PO SCH ×2 (08:00→12:24)
[2017-09-02] MEDS ORDERED: LIDOcaine 5% patch TP SCH (08:00)
[2017-09-02] MEDS: aspirin 81mg tab.chew PO SCH (09:04)
[2017-09-02] MEDS: allopurinol 300 MG tablet PO SCH (09:04)
[2017-09-02] MEDS: insulin Lispro (HumaLOG) vial - multi-dose SQ SCH ×2 (09:06→14:07)
[2017-09-02 11:20] VITALS: BP 130/51
[2017-09-02] MEDS ORDERED: LORazepam 0.5 MG tablet PO PRN (14:10)
[2017-09-02] MEDS ORDERED: ALLO100T PO (19:27)
[2017-09-02] MEDS ORDERED: LURA20TA PO (19:30)
[2017-09-02] MEDS ORDERED: VITC500T PO (19:31)
[2017-09-02] MEDS ORDERED: ASPI-1265 PO (19:32)
[2017-09-02] MEDS ORDERED: OMEG1CAP13 PO (19:37)
[2017-09-02] MEDS ORDERED: INSU100V37 SQ (19:41)
[2017-09-02] MEDS ORDERED: ATRIN INH (19:44)
[2017-09-02] MEDS ORDERED: ISOS30TA9 PO (19:45)
[2017-09-02] MEDS ORDERED: LAMO100T89 PO (19:46)
[2017-09-02] MEDS ORDERED: LEVO50TA PO (19:52)
[2017-09-02] MEDS ORDERED: LOSA25TA96 PO (19:53)
[2017-09-02] MEDS ORDERED: METO-395 PO (19:58)
[2017-09-02] MEDS ORDERED: MIRT15TA PO (19:59)
[2017-09-02] MEDS ORDERED: NITR0.4T51 SL (20:00)
[2017-09-02] MEDS ORDERED: OXYB5TAB11 PO (20:02)
[2017-09-02] MEDS ORDERED: ATOR10TA87 PO (20:13)
[2017-09-03] MEDS ORDERED: lurasidone 20mg tablet PO SCH (18:00)
[2017-09-03] MEDS ORDERED: mirtazapine 15mg tablet PO SCH (21:00)
[2017-09-03] MEDS ORDERED: lamoTRIgine 100mg tablet PO SCH (21:00)
== END 2017-09-02 17:38 | disposition home or self-care (01) | DRG 312 ==
LOC: ER 11:13 → ED HOLD 16:12 → EDBEDREQ 18:25 → MED 3N 19:35
PROVIDERS: ADMIT Emergency Medicine; ATTEND Family Medicine
DX: R55 Syncope and collapse (principal); I11.0 Hypertensive heart disease with heart failure; I50.9 Heart failure, unspecified; E11.9 Type 2 diabetes mellitus without complications; F25.9 Schizoaffective disorder, unspecified; S22.42XA Multiple fractures of ribs, left side, initial encounter for closed fracture; E03.9 Hypothyroidism, unspecified; E78.5 Hyperlipidemia, unspecified; F31.9 Bipolar disorder, unspecified; J44.9 Chronic obstructive pulmonary disease, unspecified; K21.9 Gastro-esophageal reflux disease without esophagitis; W17.89XA Other fall from one level to another, initial encounter; N28.9 Disorder of kidney and ureter, unspecified; I34.0 Nonrheumatic mitral (valve) insufficiency; F41.9 Anxiety disorder, unspecified; G89.29 Other chronic pain; M10.9 Gout, unspecified; Z79.899 Other long term (current) drug therapy; Z79.4 Long term (current) use of insulin; Z88.0 Allergy status to penicillin; Z88.1 Allergy status to other antibiotic agents; Z82.0 Family history of epilepsy and other diseases of the nervous system; Y93.89 Activity, other specified; Y92.89 Other specified places as the place of occurrence of the external cause; Y99.8 Other external cause status
CPT/HCPCS: 36415; 70450; 70551; 71045; 71110; 74176; 80053; 80061; 80320; 82948; 83036; 84443; 84484; 85025; 85379; 85610; 85730; 93005; 94760; 97116; 97161; 97530; 99285; J1815; J2060

== ENCOUNTER 2017-09-02 15:30 | Inpatient (IN) | payer MEDICARE, MEDICAID ==
[~2017-09-02] VITALS: Ht 161.9 cm; Wt 71.0 kg
[~2017-09-02 15:30] MED LIST changes: +LIDO700A47 TP; +OMEP-50; -PANT40TA4 PO; -VITD400T PO
[2017-09-02] MEDS ORDERED: pneumococcal 23-VAL P-sac vacc 25 mcg/0.5ml vial IMVAC ONE (19:20)
[2017-09-02] MEDS ORDERED: ALLO100T PO (19:27)
[2017-09-02] MEDS ORDERED: LURA20TA PO (19:30)
[2017-09-02] MEDS ORDERED: VITC500T PO (19:31)
[2017-09-02] MEDS ORDERED: ASPI-1265 PO (19:32)
[2017-09-02] MEDS ORDERED: OMEG1CAP13 PO (19:37)
[2017-09-02] MEDS ORDERED: INSU100V37 SQ (19:41)
[2017-09-02] MEDS ORDERED: ATRIN INH (19:44)
[2017-09-02] MEDS ORDERED: ISOS30TA9 PO (19:45)
[2017-09-02] MEDS ORDERED: LAMO100T89 PO (19:46)
[2017-09-02] MEDS ORDERED: LEVO50TA PO (19:52)
[2017-09-02] MEDS ORDERED: LOSA25TA96 PO (19:53)
[2017-09-02] MEDS ORDERED: METO-395 PO (19:58)
[2017-09-02] MEDS ORDERED: MIRT15TA PO (19:59)
[2017-09-02 20:00] VITALS: BP 144/66
[2017-09-02] MEDS ORDERED: NITR0.4T51 SL (20:00)
[2017-09-02] MEDS ORDERED: OXYB5TAB11 PO (20:02)
[2017-09-02] MEDS ORDERED: ATOR10TA87 PO (20:13)
[2017-09-02] MEDS ORDERED: nitroGLYCERIN 0.4mg SUBLingual tab SL PRN (20:30)
[2017-09-02] MEDS: mirtazapine 15mg tablet PO SCH (21:42)
[2017-09-02] MEDS: atorvastatin 10mg tablet PO SCH (21:43)
[2017-09-02] MEDS: lamoTRIgine 100mg tablet PO SCH (21:43)
[2017-09-02] MEDS ORDERED: mag hydrox/Alum hydrox/simeth 30ml oral suspension PO PRN (23:25)
[2017-09-02] MEDS ORDERED: magnesium hydroxide 30ml (MOM) UD suspension PO PRN (23:25)
[2017-09-02] MEDS ORDERED: acetaminophen 325mg tablet PO PRN (23:25)
[2017-09-02] MEDS: acetaminophen 325mg tablet PO PRN (23:50)
[2017-09-03] MEDS: levoTHYROXINE 25mcg tablet PO SCH (07:42)
[2017-09-03] MEDS: ipratropium 0.5 MG/2.5ML nebule IH SCH ×4 (07:53→20:08)
[2017-09-03 08:00] VITALS: BP 189/63
[2017-09-03] MEDS ORDERED: lurasidone 20mg tablet PO SCH ×3 (08:00→18:00)
[2017-09-03] MEDS: INSULIN ISOPHANE SQ SCH ×2 (08:00→20:00)
[2017-09-03] MEDS: INSULIN REGULAR SQ SCH ×2 (08:00→20:00)
[2017-09-03] MEDS: [UNRECOGNIZED DRUG - OTHER] SQ SCH ×2 (08:00→20:00)
[2017-09-03] MEDS: OMEGA-3/DHA/EPA/FISH OIL 1 EACH CAPSULE.DR PO SCH (08:00)
[2017-09-03] MEDS: metoprolol succinate 25mg (24-HOUR) SR. Tablet PO SCH (08:12)
[2017-09-03] MEDS: losartan 50mg tablet PO SCH (08:12)
[2017-09-03] MEDS: ascorbic acid 500mg tablet PO SCH ×2 (08:13→20:38)
[2017-09-03] MEDS: oxybutynin 5mg tablet PO SCH ×2 (08:13→20:39)
[2017-09-03] MEDS ORDERED: dextrose ORAL solution 15 GM/59 ML bottle PO PRN ×2 (08:30)
[2017-09-03] MEDS ORDERED: glucagon, human recombinant 1mg kit SUBCUT PRN (08:30)
[2017-09-03] MEDS ORDERED: dextrose 50%-water 50ml dispensing syringe IV PRN ×2 (08:30)
[2017-09-03] MEDS: allopurinol 300 MG tablet PO SCH (08:43)
[2017-09-03] MEDS: aspirin 81mg tab.chew PO SCH (08:44)
[2017-09-03 09:40] VITALS: BP 159/65
[2017-09-03 09:43] VITALS: BP 150/65
[2017-09-03] MEDS: LIDOcaine 5% patch TP SCH (12:03)
[2017-09-03] MEDS: insulin Lispro (HumaLOG) vial - multi-dose SQ SCH ×2 (13:23→18:23)
[2017-09-03 19:17] VITALS: BP 172/76
[2017-09-03] MEDS: atorvastatin 10mg tablet PO SCH (20:37)
[2017-09-03] MEDS: mirtazapine 15mg tablet PO SCH (20:37)
[2017-09-03] MEDS: lamoTRIgine 100mg tablet PO SCH (20:38)
[2017-09-03] MEDS ORDERED: lamoTRIgine 100mg tablet PO SCH (21:00)
[2017-09-03] MEDS ORDERED: mirtazapine 15mg tablet PO SCH (21:00)
[2017-09-03] MEDS: insulin glargine (Lantus) pen - multi-dose SQ SCH (21:03)
[2017-09-04] MEDS: ipratropium 0.5 MG/2.5ML nebule IH SCH ×4 (07:14→19:24)
[2017-09-04] MEDS: levoTHYROXINE 25mcg tablet PO SCH (07:33)
[2017-09-04] MEDS: LIDOcaine 5% patch TP SCH (07:36)
[2017-09-04 08:00] VITALS: BP 124/54
[2017-09-04] MEDS: INSULIN REGULAR SQ SCH (08:00)
[2017-09-04] MEDS: [UNRECOGNIZED DRUG - OTHER] SQ SCH (08:00)
[2017-09-04] MEDS ORDERED: buproprion 150mg XL (24-hour) tablet PO SCH (08:00)
[2017-09-04] MEDS: INSULIN ISOPHANE SQ SCH (08:00)
[2017-09-04] MEDS: insulin Lispro (HumaLOG) vial - multi-dose SQ SCH ×3 (08:46→18:49)
[2017-09-04] MEDS: oxybutynin 5mg tablet PO SCH ×2 (08:47→21:14)
[2017-09-04] MEDS: buPROPion SR 150mg tablet PO SCH (08:47)
[2017-09-04] MEDS: metoprolol succinate 25mg (24-HOUR) SR. Tablet PO SCH (08:48)
[2017-09-04] MEDS: losartan 50mg tablet PO SCH (08:48)
[2017-09-04] MEDS: ascorbic acid 500mg tablet PO SCH ×2 (08:48→21:14)
[2017-09-04] MEDS: OMEGA-3/DHA/EPA/FISH OIL 1 EACH CAPSULE.DR PO SCH (08:48)
[2017-09-04] MEDS: allopurinol 300 MG tablet PO SCH (08:51)
[2017-09-04] MEDS: aspirin 81mg tab.chew PO SCH (08:51)
[2017-09-04] MEDS: acetaminophen 325mg tablet PO PRN ×3 (09:17→23:09)
[2017-09-04] MEDS: lurasidone 20mg tablet PO SCH (18:52)
[2017-09-04 20:00] VITALS: BP 206/82
[2017-09-04 20:30] VITALS: BP 187/70
[2017-09-04] MEDS: atorvastatin 10mg tablet PO SCH (21:14)
[2017-09-04] MEDS: lamoTRIgine 100mg tablet PO SCH (21:15)
[2017-09-04] MEDS ORDERED: losartan 25mg tablet PO ONE (21:15)
[2017-09-04] MEDS: mirtazapine 15mg tablet PO SCH (21:15)
[2017-09-04] MEDS: insulin glargine (Lantus) pen - multi-dose SQ SCH (21:32)
[2017-09-05] MEDS: ipratropium 0.5 MG/2.5ML nebule IH SCH ×4 (07:00→20:03)
[2017-09-05] MEDS: levoTHYROXINE 25mcg tablet PO SCH (07:57)
[2017-09-05] MEDS: OMEGA-3/DHA/EPA/FISH OIL 1 EACH CAPSULE.DR PO SCH (07:58)
[2017-09-05] MEDS: losartan 50mg tablet PO SCH (07:58)
[2017-09-05] MEDS: ascorbic acid 500mg tablet PO SCH ×2 (07:59→20:20)
[2017-09-05] MEDS: allopurinol 300 MG tablet PO SCH (07:59)
[2017-09-05] MEDS: buPROPion SR 150mg tablet PO SCH (07:59)
[2017-09-05] MEDS: aspirin 81mg tab.chew PO SCH (07:59)
[2017-09-05] MEDS: metoprolol succinate 25mg (24-HOUR) SR. Tablet PO SCH (07:59)
[2017-09-05] MEDS: oxybutynin 5mg tablet PO SCH ×2 (08:02→20:20)
[2017-09-05 08:31] VITALS: BP 154/74
[2017-09-05] MEDS: LIDOcaine 5% patch TP SCH (10:19)
[2017-09-05] MEDS: acetaminophen 325mg tablet PO PRN ×3 (10:24→22:55)
[2017-09-05] MEDS: insulin Lispro (HumaLOG) vial - multi-dose SQ SCH ×2 (13:38→19:31)
[2017-09-05] MEDS: lurasidone 20mg tablet PO SCH (19:27)
[2017-09-05 20:04] VITALS: BP 160/95
[2017-09-05] MEDS: lamoTRIgine 100mg tablet PO SCH (20:20)
[2017-09-05] MEDS: atorvastatin 10mg tablet PO SCH (20:20)
[2017-09-05] MEDS: mirtazapine 15mg tablet PO SCH (20:20)
[2017-09-05] MEDS: insulin glargine (Lantus) pen - multi-dose SQ SCH (21:14)
[2017-09-06] MEDS ORDERED: temazepam 15mg capsule PO PRN (00:35)
[2017-09-06] MEDS: levoTHYROXINE 25mcg tablet PO SCH (07:32)
[2017-09-06] MEDS: LIDOcaine 5% patch TP SCH (07:42)
[2017-09-06 08:00] VITALS: BP 176/79
[2017-09-06] MEDS: ipratropium 0.5 MG/2.5ML nebule IH SCH ×2 (08:02→11:32)
[2017-09-06] MEDS: allopurinol 300 MG tablet PO SCH (08:33)
[2017-09-06] MEDS: ascorbic acid 500mg tablet PO SCH (08:33)
[2017-09-06] MEDS: losartan 50mg tablet PO SCH (08:33)
[2017-09-06] MEDS: aspirin 81mg tab.chew PO SCH (08:34)
[2017-09-06] MEDS: metoprolol succinate 25mg (24-HOUR) SR. Tablet PO SCH (08:34)
[2017-09-06] MEDS: buPROPion SR 150mg tablet PO SCH (08:35)
[2017-09-06] MEDS: oxybutynin 5mg tablet PO SCH (08:35)
[2017-09-06] MEDS: OMEGA-3/DHA/EPA/FISH OIL 1 EACH CAPSULE.DR PO SCH (08:39)
[2017-09-06] MEDS: insulin Lispro (HumaLOG) vial - multi-dose SQ SCH (09:43)
[2017-09-06] MEDS: acetaminophen 325mg tablet PO PRN (12:36)
[2017-09-06] MEDS ORDERED: LURA60TA2 PO (12:59)
[2017-09-06] MEDS ORDERED: MIRT15TA8 PO (12:59)
[2017-09-06] MEDS ORDERED: BUPR-84 PO (12:59)
[2017-09-06] MEDS ORDERED: LAMO100T89 PO (12:59)
[2017-09-06] MEDS ORDERED: LIDO700A47 TP (14:50)
[2017-09-06] MEDS ORDERED: temazepam 15mg capsule PO ONE (21:00)
== END 2017-09-06 14:50 | disposition home or self-care (01) | DRG 885 ==
LOC: ADULT MH 15:30
PROVIDERS: ADMIT Psychiatry & Neurology Psychiatry; ATTEND Psychiatry & Neurology Psychiatry
DX: F25.1 Schizoaffective disorder, depressive type (principal); I11.0 Hypertensive heart disease with heart failure; J44.9 Chronic obstructive pulmonary disease, unspecified; I50.9 Heart failure, unspecified; E03.9 Hypothyroidism, unspecified; E78.5 Hyperlipidemia, unspecified; K21.9 Gastro-esophageal reflux disease without esophagitis; F41.9 Anxiety disorder, unspecified; G89.29 Other chronic pain; M10.9 Gout, unspecified; S22.41XD Multiple fractures of ribs, right side, subsequent encounter for fracture with routine healing; Z81.8 Family history of other mental and behavioral disorders; Y92.89 Other specified places as the place of occurrence of the external cause
CPT/HCPCS: 36415; 82948; 83036; 87070; 90732; 94640; 94760; 99285; J1610; J1815

== ENCOUNTER 2018-07-29 10:07 | Inpatient (IN) | payer MEDICARE, MEDICAID ==
[~2018-07-29] VITALS: Ht 165.1 cm; Wt 86.4 kg
[~2018-07-29 10:07] MED LIST changes: +ALLO100T PO; -ALLO300T8 PO; -ARIP20TA10 PO; -ARIP2TAB11 PO; -ASCO1TAB42; -ATOR10TA PO; +ATOR10TA87 PO; +BUPR-84 PO; -HUM10VIA SQ; +INSU100V37 SQ; -ISOS10TA2 PO; +ISOS30TA9 PO; -LEVO25TA7 PO; +LEVO50TA PO; +LOSA25TA96 PO; -LOSA50TA37 PO; +LURA60TA2 PO; -Miscellaneous SQ; -OMEP-50; +VITC500T PO
[2018-07-29] MEDS ORDERED: magnesium 2GM in 50ml NS 50 ML IV ONE (10:10)
[2018-07-29] MEDS ORDERED: diltiazem 5mg/ml 5ml inj. IV ONE ×3 (10:10→11:35)
[2018-07-29] MEDS ORDERED: normal saline 1000ml 1,000 ML IV ONE ×2 (10:10→12:55)
[2018-07-29] MEDS ORDERED: diltiazem-D5W 125mg/125ml 125 ML IV ONE (10:10)
[2018-07-29 10:38] LABS: BASOPHILS % (AUTO) 0.2 % (0-1); EOSINOPHILS # (AUTO) 0.2 X10'3 (0-0.9); EOSINOPHILS % (AUTO) 1.9 % (0-6); HEMATOCRIT 37.2 % (35.0-45.0); HEMOGLOBIN 12.1 g/dl (12.0-16.0); LYMPHOCYTES # (AUTO) 1.1 X10'3 (1.1-4.8); LYMPHOCYTES % (AUTO) 9.2 % (21-51); MEAN CORPUSCULAR HEMOGLOBIN 31.1 PG (27.0-31.0); MEAN CORPUSCULAR HGB CONC 32.4 % (33.0-36.5); MEAN CORPUSCULAR VOLUME 95.9 FL (78-98); MEAN PLATELET VOLUME 6.9 FL (7.4-10.4); MONOCYTES # (AUTO) 0.6 X10'3 (0-0.9); MONOCYTES % (AUTO) 5.4 % (2-12); NEUTROPHILS # (AUTO) 9.7 X10'3 (1.8-7.7); NEUTROPHILS % (AUTO) 83.3 % (42-75); PLATELET COUNT 427 X10'3 (140-440); RED BLOOD COUNT 3.88 X10'6 (4.20-5.60); RED CELL DISTRIBUTION WIDTH 15.1 % (11.5-14.5); WHITE BLOOD COUNT 11.6 X10'3 (4.5-11.0)
[2018-07-29 10:49] LABS: PROTHROMBIN TIME 10.5 SECONDS (9.0-12.0)
[2018-07-29 10:54] LABS: ALANINE AMINOTRANSFERASE 51 U/L (12-78); ALBUMIN 2.9 G/DL (3.4-5.0); ALBUMIN/GLOBULIN RATIO 0.6 (1.1-1.5); ALKALINE PHOSPHATASE 147 IU/L (46-116); ANION GAP 13 (8-16); ASPARTATE AMINO TRANSFERASE 25 U/L (10-37); BILIRUBIN,TOTAL 0.3 MG/DL (0.1-1.0); BLOOD UREA NITROGEN 28 MG/DL (7-18); BUN/CREATININE RATIO 18.1 (6.6-38.0); CALCIUM 9.7 MG/DL (8.5-10.1); CHLORIDE 96 MMOL/L (99-107); CREATININE 1.55 MG/DL (0.40-0.90); GLUCOSE 247 MG/DL (70-104); POTASSIUM 5.3 MMOL/L (3.5-5.1); SODIUM 129 MMOL/L (135-145); TOTAL CARBON DIOXIDE 20.1 MMOL/L (24-32); TOTAL PROTEIN 7.5 G/DL (6.4-8.2); eGFR 33 ML/MIN
[2018-07-29 11:00] LABS: MAGNESIUM 1.7 MG/DL (1.5-2.4)
[2018-07-29] MEDS ORDERED: potassium Cl 20 mEq SR tablet PO PRN ×2 (12:45)
[2018-07-29] MEDS ORDERED: magnesium Cl slow-release 64mg tablet PO PRN (12:45)
[2018-07-29] MEDS ORDERED: potassium Cl 40MEQ/NS 500ml 500 ML IV PRN ×2 (12:45)
[2018-07-29] MEDS ORDERED: acetaminophen 325mg tablet PO PRN ×2 (12:45)
[2018-07-29] MEDS ORDERED: mag hydrox/Alum hydrox/simeth 30ml oral suspension PO PRN (12:45)
[2018-07-29] MEDS ORDERED: ondansetron/PF 4mg/2ml inj IV PRN (12:45)
[2018-07-29] MEDS ORDERED: morphine 4 MG/ML inj SYRINge IV PRN ×2 (12:45)
[2018-07-29] MEDS ORDERED: magnesium hydroxide 30ml (MOM) UD suspension PO PRN (12:45)
[2018-07-29] MEDS ORDERED: magnesium 4gm in 100ml NS 100 ML IV PRN (12:45)
[2018-07-29] MEDS ORDERED: enoxaparin 80mg/0.8ml syringe SUBCUT ONE (12:45)
[2018-07-29] MEDS ORDERED: magnesium 2GM in 50ml NS 50 ML IV PRN (12:45)
[2018-07-29] MEDS: metoprolol tartrate 1mg/ml inj IV SCH ×3 (13:05→13:52)
[2018-07-29] MEDS ORDERED: metoprolol tartrate 50mg tablet PO ONE (14:20)
[2018-07-29] MEDS ORDERED: nitroGLYCERIN 0.4mg SUBLingual tab SL PRN (15:55)
--- NOTE | 2018-07-29 16:35 | NUR ---
Pt. to room 3027B from ED. Pt. ambulated to bed in room with SBA. Call light given to patient.
[2018-07-29 16:37] VITALS: BP 120/74
[2018-07-29 18:00] VITALS: BP 127/60
[2018-07-29] MEDS ORDERED: lurasidone 60mg tablet PO SCH (18:00)
--- NOTE | 2018-07-29 18:18 | NUR ---
Problems reprioritized. Patient report given, questions answered & plan of care reviewed with josiah LAYTON.
--- NOTE | 2018-07-29 18:20 | NUR ---
Patient in room PCU 3027. I have received report from July LAYTON and had the opportunity to ask questions and assume patient care.
[2018-07-29] MEDS ORDERED: enoxaparin 100mg/ml syringe SUBCUT SCH (20:00)
[2018-07-29] MEDS: oxybutynin 5mg tablet PO SCH (21:30)
[2018-07-29] MEDS: ascorbic acid 500mg tablet PO SCH (21:30)
[2018-07-29] MEDS: enoxaparin 80mg/0.8ml syringe SUBCUT SCH (21:31)
[2018-07-29] MEDS: atorvastatin 10mg tablet PO SCH (21:32)
[2018-07-29] MEDS: lamoTRIgine 100mg tablet PO SCH (21:32)
[2018-07-29] MEDS: mirtazapine 15mg tablet PO SCH (21:33)
[2018-07-29] MEDS: HYDROcodone/acetaminophen 10/325mg tab PO PRN (21:44)
[2018-07-29] MEDS: metoprolol tartrate 25mg tablet PO SCH (21:53)
[2018-07-29 22:00] VITALS: BP 112/65
[2018-07-30] MEDS ORDERED: OSC500T PO (00:12)
[2018-07-30] MEDS ORDERED: CHLO25TA2 PO (00:12)
[2018-07-30] MEDS ORDERED: UMEC62.5 INH (00:12)
[2018-07-30] MEDS ORDERED: LAMO150T2 PO (00:24)
[2018-07-30] MEDS ORDERED: OMEP40CA37 PO (00:24)
[2018-07-30] MEDS ORDERED: LOSA25TA96 PO (00:24)
[2018-07-30] MEDS ORDERED: CHOL10002 PO (00:24)
[2018-07-30] MEDS ORDERED: DULA1.5P SUBCUT (00:24)
[2018-07-30] MEDS ORDERED: METF500T PO (00:24)
[2018-07-30] MEDS ORDERED: ERGO500041 PO (00:24)
[2018-07-30] MEDS ORDERED: METO-539 PO (00:24)
[2018-07-30] MEDS ORDERED: BUPR150T8 PO (00:24)
--- NOTE | 2018-07-30 00:37 | NUR ---
pt's family brought a copy of pt's current meds. updated med rec. paper copy of med list placed in chart.
[2018-07-30 02:00] VITALS: BP 123/61
[2018-07-30] MEDS: metoprolol tartrate 25mg tablet PO SCH ×2 (02:22→08:44)
[2018-07-30] MEDS: HYDROcodone/acetaminophen 5mg/325mg tablet PO PRN (02:25)
[2018-07-30 04:58] LABS: BASOPHILS % (AUTO) 0.2 % (0-1); EOSINOPHILS # (AUTO) 0.3 X10'3 (0-0.9); EOSINOPHILS % (AUTO) 2.9 % (0-6); HEMATOCRIT 31.5 % (35.0-45.0); HEMOGLOBIN 10.4 g/dl (12.0-16.0); LYMPHOCYTES # (AUTO) 1.6 X10'3 (1.1-4.8); LYMPHOCYTES % (AUTO) 16.1 % (21-51); MEAN CORPUSCULAR HEMOGLOBIN 31.3 PG (27.0-31.0); MEAN CORPUSCULAR VOLUME 94.9 FL (78-98); MEAN PLATELET VOLUME 6.9 FL (7.4-10.4); MONOCYTES # (AUTO) 0.7 X10'3 (0-0.9); NEUTROPHILS # (AUTO) 7.4 X10'3 (1.8-7.7); NEUTROPHILS % (AUTO) 73.8 % (42-75); PLATELET COUNT 375 X10'3 (140-440); RED BLOOD COUNT 3.32 X10'6 (4.20-5.60); RED CELL DISTRIBUTION WIDTH 16.2 % (11.5-14.5)
[2018-07-30 05:25] LABS: ALBUMIN 2.4 G/DL (3.4-5.0); ANION GAP 10 (8-16); BLOOD UREA NITROGEN 28 MG/DL (7-18); BUN/CREATININE RATIO 19.2 (6.6-38.0); CALCIUM 9.1 MG/DL (8.5-10.1); CHLORIDE 99 MMOL/L (99-107); CHOL/HDL RATIO 3.1 (0.00-4.99); CHOLESTEROL 107 MG/DL (0-200); CREATININE 1.46 MG/DL (0.40-0.90); GLUCOSE 192 MG/DL (70-104); HDL CHOLESTEROL 34 MG/DL (35-60); LDL CHOLESTEROL 57 MG/DL (50-100); MAGNESIUM 2.2 MG/DL (1.5-2.4); POTASSIUM 4.3 MMOL/L (3.5-5.1); SODIUM 131 MMOL/L (135-145); TOTAL CARBON DIOXIDE 22.2 MMOL/L (24-32); TRIGLYCERIDES 108 MG/DL (20-135); eGFR 35 ML/MIN
[2018-07-30 06:00] VITALS: BP 115/64
--- NOTE | 2018-07-30 06:31 | NUR ---
Problems reprioritized. Patient report given, questions answered & plan of care reviewed with Art RN.
[2018-07-30] MEDS: levoTHYROXINE 25mcg tablet PO SCH (07:00)
[2018-07-30] MEDS ORDERED: non-formulary drug (Docosahexanoic Acid/Epa (Fish Oil 1,000 Mg Softgel) 1 EACH) PO SCH (08:00)
[2018-07-30] MEDS: K and/or MAG REPLACEMENT MC SCH (08:00)
[2018-07-30] MEDS: LIDOcaine 5% patch TP SCH (08:00)
[2018-07-30] MEDS: enoxaparin 80mg/0.8ml syringe SUBCUT SCH (08:40)
[2018-07-30] MEDS: ascorbic acid 500mg tablet PO SCH ×2 (08:44→19:17)
[2018-07-30] MEDS: aspirin 81mg tab.chew PO SCH (08:44)
[2018-07-30] MEDS: allopurinol 300 MG tablet PO SCH (08:44)
[2018-07-30] MEDS: oxybutynin 5mg tablet PO SCH ×2 (08:44→19:21)
[2018-07-30] MEDS: buPROPion SR 150mg tablet PO SCH (08:44)
[2018-07-30] MEDS ORDERED: MESSAGE TO PHARMACY PO ONE (08:55)
[2018-07-30] MEDS ORDERED: dextrose ORAL solution 15 GM/59 ML bottle PO PRN ×2 (08:55)
[2018-07-30] MEDS ORDERED: dextrose 50%-water 50ml dispensing syringe IV PRN ×2 (08:55)
[2018-07-30] MEDS ORDERED: glucagon, human recombinant 1mg kit SUBCUT PRN (08:55)
[2018-07-30 09:18] LABS: HEMOGLOBIN A1C 8.5 % (4.5-6.2)
[2018-07-30] MEDS: insulin Lispro (HumaLOG) vial - multi-dose SQ SCH ×3 (09:38→19:41)
[2018-07-30] MEDS ORDERED: ipratropium/albuterol 3ml nebule NEB PRN (11:45)
[2018-07-30] MEDS: HYDROcodone/acetaminophen 10/325mg tab PO PRN (14:10)
[2018-07-30 15:00] VITALS: BP 183/83
[2018-07-30 16:11] LABS: CLARITY,URINE SLIGHTLY CLOUDY (Clear); COLOR,URINE YELLOW (Yellow); GLUCOSE, URINE NEGATIVE (Neg); KETONES,URINE NEGATIVE (Neg); LEUKOCYTE ESTERASE ,URINE MODERATE (Neg); NITRITES, URINE POSITIVE (Neg); OCCULT BLOOD,URINE NEGATIVE (Neg); PH,URINE 5.5 (4.8-8.0); PROTEIN,URINE NEGATIVE (Neg); UROBILINOGEN,URINE 0.2 E.U/dL (0.2-1.0)
[2018-07-30 16:12] LABS: UA COLLECTION TYPE NON-SPECIFIED
[2018-07-30 16:16] LABS: BACTERIA,URINE 2+ /HPF (Neg); SQUAMOUS EPITHELIAL CELL,UR MODERATE /LPF (FEW)
[2018-07-30 16:17] LABS: RBC,URINE 0-2 /HPF (0-2); WBC CLUMPS,URINE MODERATE /HPF (NEGATIVE); WBC,URINE 50-100 /HPF (0-4)
--- NOTE | 2018-07-30 16:25 | NUR ---
PAGER ID: [phone] MESSAGE: Dr. Iyer, the [facility] is available for pt linda in [phone], Art, [phone]
[2018-07-30] MEDS ORDERED: levoFLOXACIN-Levaquin 500mg/D5 100 ML IV ONE (16:30)
[2018-07-30 18:00] VITALS: BP 109/37
--- NOTE | 2018-07-30 18:27 | NUR ---
Patient in room PCU 3027. I have received report from Art RN and had the opportunity to ask questions and assume patient care.
[2018-07-30] MEDS: lactobacillus rhamnosus 10,000 MMU CELLS/CAPSULE PO SCH (19:17)
[2018-07-30] MEDS: apixaban 5mg tablet PO SCH (19:17)
[2018-07-30] MEDS: metoprolol tartrate 50mg tablet PO SCH (19:25)
[2018-07-30] MEDS: ipratropium/albuterol 3ml nebule NEB SCH ×2 (20:20→23:52)
[2018-07-30] MEDS: atorvastatin 10mg tablet PO SCH (21:27)
[2018-07-30] MEDS: mirtazapine 15mg tablet PO SCH (21:28)
[2018-07-30] MEDS: lamoTRIgine 100mg tablet PO SCH (21:28)
[2018-07-30 22:00] VITALS: BP 106/60
[2018-07-30] MEDS: insulin glargine (Lantus) pen - multi-dose SQ SCH (22:27)
[2018-07-31] VITALS (19 sets, daily range): BP systolic 96–143; BP diastolic 42–84
--- NOTE | 2018-07-31 02:27 | NUR ---
notified of pt converting to AFib with HR in the 130s/140s. orders received. will continue to monitor.
[2018-07-31] MEDS ORDERED: diltiazem 5mg/ml 5ml inj. IV ONE (02:30)
[2018-07-31] MEDS: ipratropium/albuterol 3ml nebule NEB SCH ×5 (03:30→19:57)
[2018-07-31] MEDS: HYDROcodone/acetaminophen 5mg/325mg tablet PO PRN (04:10)
[2018-07-31] MEDS ORDERED: diltiazem-D5W 125mg/125ml 125 ML IV SCH (04:50)
--- NOTE | 2018-07-31 04:50 | NUR ---
notified pt is still in Afib with HR 130s/140s. orders received to start on cardizem drip.
[2018-07-31 05:18] LABS: BASOPHILS % (AUTO) 0.2 % (0-1); EOSINOPHILS # (AUTO) 0.2 X10'3 (0-0.9); EOSINOPHILS % (AUTO) 1.9 % (0-6); HEMATOCRIT 33.7 % (35.0-45.0); HEMOGLOBIN 11.2 g/dl (12.0-16.0); LYMPHOCYTES # (AUTO) 1.4 X10'3 (1.1-4.8); LYMPHOCYTES % (AUTO) 14.3 % (21-51); MEAN CORPUSCULAR HEMOGLOBIN 31.5 PG (27.0-31.0); MEAN CORPUSCULAR HGB CONC 33.2 % (33.0-36.5); MEAN CORPUSCULAR VOLUME 94.9 FL (78-98); MEAN PLATELET VOLUME 6.7 FL (7.4-10.4); MONOCYTES # (AUTO) 0.8 X10'3 (0-0.9); MONOCYTES % (AUTO) 8.8 % (2-12); NEUTROPHILS # (AUTO) 7.1 X10'3 (1.8-7.7); NEUTROPHILS % (AUTO) 74.8 % (42-75); PLATELET COUNT 363 X10'3 (140-440); RED BLOOD COUNT 3.56 X10'6 (4.20-5.60); RED CELL DISTRIBUTION WIDTH 15.8 % (11.5-14.5); WHITE BLOOD COUNT 9.5 X10'3 (4.5-11.0)
[2018-07-31 05:33] LABS: ALBUMIN 2.4 G/DL (3.4-5.0); ANION GAP 11 (8-16); BLOOD UREA NITROGEN 26 MG/DL (7-18); BUN/CREATININE RATIO 19.8 (6.6-38.0); CALCIUM 9.6 MG/DL (8.5-10.1); CHLORIDE 98 MMOL/L (99-107); CREATININE 1.31 MG/DL (0.40-0.90); GLUCOSE 172 MG/DL (70-104); MAGNESIUM 1.8 MG/DL (1.5-2.4); SODIUM 132 MMOL/L (135-145); TOTAL CARBON DIOXIDE 22.6 MMOL/L (24-32); eGFR 40 ML/MIN
--- NOTE | 2018-07-31 06:23 | NUR ---
Problems reprioritized. Patient report given, questions answered & plan of care reviewed with Art RN.
[2018-07-31] MEDS: levoTHYROXINE 25mcg tablet PO SCH (07:00)
[2018-07-31] MEDS: K and/or MAG REPLACEMENT MC SCH (08:00)
[2018-07-31] MEDS: LIDOcaine 5% patch TP SCH (08:00)
[2018-07-31] MEDS: metoprolol tartrate 50mg tablet PO SCH ×2 (08:00→19:19)
[2018-07-31] MEDS: lactobacillus rhamnosus 10,000 MMU CELLS/CAPSULE PO SCH ×2 (08:05→19:18)
[2018-07-31] MEDS: buPROPion SR 150mg tablet PO SCH (08:05)
[2018-07-31] MEDS: apixaban 5mg tablet PO SCH ×2 (08:06→19:19)
[2018-07-31] MEDS: aspirin 81mg tab.chew PO SCH (08:07)
[2018-07-31] MEDS: ascorbic acid 500mg tablet PO SCH ×2 (08:07→19:18)
[2018-07-31] MEDS: oxybutynin 5mg tablet PO SCH ×2 (08:07→19:21)
[2018-07-31] MEDS: allopurinol 300 MG tablet PO SCH (08:07)
[2018-07-31] MEDS: levoFLOXACIN-Levaquin 250mg/D5 50 ML IV SCH (08:08)
[2018-07-31] MEDS: insulin Lispro (HumaLOG) vial - multi-dose SQ SCH ×3 (09:22→19:29)
--- NOTE | 2018-07-31 12:13 | NUR ---
Initial: Pt admit with Alesia with RVR and MAX, creatinine trending down per MD progress notes. Pt with A1c 8.5 seen at bedside states she sees her PCP q month, takes PO DM meds and insulin per rx w/o difficulties, and checks her BG 4 times a day with resulting numbers usually 100-130. Pt states her A1c was 9.0 two months ago taken by PCP. Pt given verbal and written DM education with referral to outpatient DM class and RD contact information. Pt reports a lower appetite which is evident with documented PO intake 25-50% likely not meeting nutrient needs. Pt agreeable to yogurt with breakfast and cottage cheese with lunch, d/w dietary. Pt on heart healthy diet, rec addition of CHO controlled diet d/t pt with T2DM, MD notified LBM 07/26, pt agreeable to prune juice at dinner, d/w dietary. Pt denies and food allergies or difficulty chewing/swallowing. Pt with no further questions at this time. Will continue to follow. Recommendations: 1) Continue with heart healthy diet with addition of CHO controlled 2) Yogurt at breakfast, cottage cheese at lunch 3) Monitor need for additional bowel care 4) Wt per rx Addendum: 07/31/18 at [address] Amended: Links added.
[2018-07-31] MEDS: diltiazem 30mg tablet PO SCH (19:21)
[2018-07-31] MEDS: lamoTRIgine 100mg tablet PO SCH (21:45)
[2018-07-31] MEDS: mirtazapine 15mg tablet PO SCH (21:45)
[2018-07-31] MEDS: atorvastatin 10mg tablet PO SCH (21:45)
[2018-07-31] MEDS: insulin glargine (Lantus) pen - multi-dose SQ SCH (22:32)
[2018-08-01] VITALS (9 sets, daily range): BP systolic 99–136; BP diastolic 54–72
[2018-08-01] MEDS: ipratropium/albuterol 3ml nebule NEB SCH ×4 (00:08→11:28)
[2018-08-01] MEDS: diltiazem 30mg tablet PO SCH ×3 (02:34→14:22)
--- NOTE | 2018-08-01 06:35 | NUR ---
Patient in room PCU 3027. I have received report from deep and had the opportunity to ask questions and assume patient care.
--- NOTE | 2018-08-01 06:37 | NUR ---
Pt shift report given to CALIN Shukla. pt stable at change of shift.
[2018-08-01 06:45] LABS: BASOPHILS % (AUTO) 0.3 % (0-1); EOSINOPHILS # (AUTO) 0.3 X10'3 (0-0.9); EOSINOPHILS % (AUTO) 3.9 % (0-6); HEMATOCRIT 34.7 % (35.0-45.0); HEMOGLOBIN 11.5 g/dl (12.0-16.0); LYMPHOCYTES # (AUTO) 1.5 X10'3 (1.1-4.8); LYMPHOCYTES % (AUTO) 16.8 % (21-51); MEAN CORPUSCULAR HEMOGLOBIN 31.5 PG (27.0-31.0); MEAN CORPUSCULAR HGB CONC 33.1 % (33.0-36.5); MEAN CORPUSCULAR VOLUME 95.2 FL (78-98); MEAN PLATELET VOLUME 6.7 FL (7.4-10.4); MONOCYTES # (AUTO) 0.6 X10'3 (0-0.9); MONOCYTES % (AUTO) 6.4 % (2-12); NEUTROPHILS # (AUTO) 6.4 X10'3 (1.8-7.7); NEUTROPHILS % (AUTO) 72.6 % (42-75); PLATELET COUNT 418 X10'3 (140-440); RED BLOOD COUNT 3.65 X10'6 (4.20-5.60); RED CELL DISTRIBUTION WIDTH 15.8 % (11.5-14.5); WHITE BLOOD COUNT 8.8 X10'3 (4.5-11.0)
[2018-08-01 06:57] LABS: ALBUMIN 2.3 G/DL (3.4-5.0); ANION GAP 10 (8-16); BLOOD UREA NITROGEN 26 MG/DL (7-18); BUN/CREATININE RATIO 20.6 (6.6-38.0); CALCIUM 10.2 MG/DL (8.5-10.1); CHLORIDE 102 MMOL/L (99-107); CREATININE 1.26 MG/DL (0.40-0.90); GLUCOSE 160 MG/DL (70-104); MAGNESIUM 1.8 MG/DL (1.5-2.4); POTASSIUM 4.3 MMOL/L (3.5-5.1); SODIUM 134 MMOL/L (135-145); TOTAL CARBON DIOXIDE 22.2 MMOL/L (24-32); eGFR 42 ML/MIN
[2018-08-01] MEDS: K and/or MAG REPLACEMENT MC SCH (08:00)
[2018-08-01] MEDS: oxybutynin 5mg tablet PO SCH (08:03)
[2018-08-01] MEDS: lactobacillus rhamnosus 10,000 MMU CELLS/CAPSULE PO SCH (08:03)
[2018-08-01] MEDS: levoTHYROXINE 25mcg tablet PO SCH (08:04)
[2018-08-01] MEDS: allopurinol 300 MG tablet PO SCH (08:04)
[2018-08-01] MEDS: aspirin 81mg tab.chew PO SCH (08:04)
[2018-08-01] MEDS: ascorbic acid 500mg tablet PO SCH (08:04)
[2018-08-01] MEDS: metoprolol tartrate 50mg tablet PO SCH ×2 (08:04→16:53)
[2018-08-01] MEDS: LIDOcaine 5% patch TP SCH (08:04)
[2018-08-01] MEDS: levoFLOXACIN-Levaquin 250mg/D5 50 ML IV SCH (08:04)
[2018-08-01] MEDS: apixaban 5mg tablet PO SCH ×2 (08:04→16:53)
[2018-08-01] MEDS: buPROPion SR 150mg tablet PO SCH (08:04)
[2018-08-01] MEDS: insulin Lispro (HumaLOG) vial - multi-dose SQ SCH ×2 (08:09→12:53)
[2018-08-01] MEDS ORDERED: DILT120C88 PO (16:38)
[2018-08-01] MEDS ORDERED: ISOS10TA2 PO (16:38)
[2018-08-01] MEDS ORDERED: APIX5TAB3 PO (16:38)
[2018-08-01] MEDS ORDERED: LEVO500T89 PO (16:38)
[2018-08-01] MEDS ORDERED: METO50TA16 PO (16:38)
--- NOTE | 2018-08-01 17:28 | NUR ---
Eliquis and metoprolol given early to pt per Dr Shireen [facility] pharmacy closes at 1800 and pt won't be able to turkey picker scripts until AM. Called scripts to [facility] in [place]. Instructions given in detail regarding follow up, meds, and home care. She verbalizes understanding. IV dc'd. Pt discharged with daughter via wc.
== END 2018-08-01 17:25 | disposition home or self-care (01) | DRG 683 ==
LOC: ER 10:08 → ED HOLD 12:41 → PCU 3S 16:31
PROVIDERS: ADMIT Hospitalist; ATTEND Hospitalist
DX: N17.9 Acute kidney failure, unspecified (principal); D68.69 Other thrombophilia; N39.0 Urinary tract infection, site not specified; I48.91 Unspecified atrial fibrillation; I50.9 Heart failure, unspecified; B96.20 Unspecified Escherichia coli [E. coli] as the cause of diseases classified elsewhere; E03.9 Hypothyroidism, unspecified; E11.9 Type 2 diabetes mellitus without complications; G89.29 Other chronic pain; F41.9 Anxiety disorder, unspecified; I08.1 Rheumatic disorders of both mitral and tricuspid valves; F31.9 Bipolar disorder, unspecified; I11.0 Hypertensive heart disease with heart failure; J44.9 Chronic obstructive pulmonary disease, unspecified; Z88.1 Allergy status to other antibiotic agents; Z88.0 Allergy status to penicillin; Z91.048 Other nonmedicinal substance allergy status; Z79.2 Long term (current) use of antibiotics; Z79.4 Long term (current) use of insulin; Z79.899 Other long term (current) drug therapy; Z79.01 Long term (current) use of anticoagulants; Z87.440 Personal history of urinary (tract) infections; Z82.0 Family history of epilepsy and other diseases of the nervous system
CPT/HCPCS: 36415; 71045; 80048; 80053; 80061; 81001; 82948; 83036; 83735; 83880; 84443; 84484; 85025; 85610; 87070; 87077; 87088; 87186; 92960; 93005; 93306; 94640; 94760; 96365; 96368; 96375; 96376; 97116; 97161; 97530; 99291; G0378; J1650; J1815; J1956; J3475; J3490

== ENCOUNTER 2019-09-25 07:43 | Inpatient (IN) | payer MEDICARE, MEDICAID ==
[2019-09-10 15:32] LABS: BASOPHILS % (AUTO) 0.7 % (0-1); EOSINOPHILS # (AUTO) 0.2 X10'3 (0-0.9); EOSINOPHILS % (AUTO) 2.9 % (0-6); LYMPHOCYTES # (AUTO) 1.9 X10'3 (1.1-4.8); MEAN CORPUSCULAR HEMOGLOBIN 29.5 PG (27.0-31.0); MEAN CORPUSCULAR HGB CONC 32.6 g/dL (33.0-36.5); MEAN CORPUSCULAR VOLUME 90.3 FL (78-98); MEAN PLATELET VOLUME 6.9 FL (7.4-10.4); MONOCYTES # (AUTO) 0.5 X10'3 (0-0.9); MONOCYTES % (AUTO) 7.1 % (2-12); NEUTROPHILS # (AUTO) 3.9 X10'3 (1.8-7.7); NEUTROPHILS % (AUTO) 60.3 % (42-75); PRE OP HEMATOCRIT 34.6 % (35.0-45.0); PRE OP HEMOGLOBIN 11.3 g/dL (12.0-16.0); PRE OP PLATELET COUNT 315 X10'3 (140-440); RED BLOOD COUNT 3.83 X10'6 (4.20-5.60); RED CELL DISTRIBUTION WIDTH 19.2 % (11.5-14.5)
[2019-09-10 15:40] LABS: HEMOGLOBIN A1C 6.5 % (4.5-6.2)
[2019-09-10 15:56] LABS: ALBUMIN 3.5 G/DL (3.4-5.0); ALKALINE PHOSPHATASE 79 IU/L (46-116); BLOOD UREA NITROGEN 18 MG/DL (7-18); BUN/CREATININE RATIO 13.3 (6.6-38.0); CALCIUM 9.3 MG/DL (8.5-10.1); CHLORIDE 105 MMOL/L (99-107); CREATININE 1.35 MG/DL (0.40-0.90); PRE OP ALT 28 U/L (30-65); PRE OP ANION GAP 7 (8-16); PRE OP AST 22 U/L (10-37); PRE OP BILIRUB, TOTAL 0.2 MG/DL (0.0-1.0); PRE OP GLUCOSE 170 MG/DL (70-104); PRE OP POTASSIUM 4.2 MMOL/L (3.4-5.1); PRE OP SODIUM 141 MMOL/L (135-145); TOTAL PROTEIN 6.9 G/DL (6.4-8.2); eGFR 39 ML/MIN
[2019-09-10 16:33] LABS: ANISOCYTOSIS 2+; PLATELET ESTIMATE NORMAL
[2019-09-10 16:34] LABS: ELLIPTOCYTES FEW; TEAR DROP CELLS FEW
[2019-09-10 16:35] LABS: HYPOCHROMASIA 1+
[~2019-09-25] VITALS: Ht 165.1 cm; Wt 78.0 kg
[2019-09-25] VITALS (19 sets, daily range): BP systolic 113–145; BP diastolic 54–79
[~2019-09-25 07:43] MED LIST changes: +ALBU18HF2 INH; +APIX5TAB3 PO; -ASPI-1265 PO; +ASPI81TA52 PO; -ATRIN INH; +BIOT5000 PO; -BUPR-84 PO; +CETI-194 PO; +CHOL10002 PO; +DILT240C90 PO; +DOCUMENT DATE & TIME OF BETA-BLOCKER PO ONE; +DULA1.5P SUBCUT; +ERGO500041 PO; +FAMO-128 PO; +FERR-119 PO; +FLUT100D2 INH; +FURO-150 PO; +INSU100C4 SQ; -INSU100V37 SQ; +ISOS10TA2 PO; -ISOS30TA9 PO; +LAMO100T2 PO; -LAMO100T89 PO; -LIDO700A47 TP; +LOSA100T57 PO; -LOSA25TA96 PO; -LURA60TA2 PO; +METF500T PO; -METO-395 PO; +METO50TA17 PO; -MIRT15TA8 PO; +OSC500T PO; -OXYB5TAB11 PO; +OXYB5TAB16 PO; +TEMA30CA PO; +UMEC62.5 INH; +VITA-268 PO; +cefazolin/dext.iso 2gm/100ml 100 ML IV ONE; +famotidine 20mg tablet PO ONE; +ringers solution, lacted 1,000 ML IV SCH; +tranexamic acid inj. 780 MG in normal saline 100ml IV soln 100 ML IV ONE; +vancomycin inj 1,500 MG in normal saline 300ml IV soln IV ONE
[2019-09-25] MEDS ORDERED: BUPIVAcaine/PF 2.5mg/ml (0.25%) 10ml vial ONE (09:17)
[2019-09-25] MEDS ORDERED: ipratropium/albuterol 3ml nebule NEB ONE (09:20)
[2019-09-25] MEDS ORDERED: fentaNYL/PF 50MCG/1 ML 2ML syringe ONE ×2 (09:20→11:31)
[2019-09-25] MEDS ORDERED: midazolam 2 mg/2 ml injection ONE ×2 (09:21)
[2019-09-25 09:54] LABS: PRE OP INR 1.1 INR; PRE OP PROTIME 11.3 SECONDS (9.0-12.0)
[2019-09-25] MEDS ORDERED: ringers solution, lacted 1,000 ML IV SCH (10:59)
[2019-09-25] MEDS ORDERED: morphine 2 MG/ML inj. syringe IV PRN (11:00)
[2019-09-25] MEDS ORDERED: HYDROmorphone inj. 0.5 MG/0.5 ML DISP.SYRIN IV PRN (11:00)
[2019-09-25] MEDS ORDERED: ondansetron/PF 4mg/2ml inj IV PRN (11:00)
[2019-09-25] MEDS ORDERED: tranexamic acid inj. 800 MG in normal saline 100ml IV soln 100 ML IV ONE ×2 (11:15→19:30)
[2019-09-25] MEDS ORDERED: ROPIVAcaine 0.5% (5mg/ml) 30ml vial ONE (11:29)
[2019-09-25] MEDS ORDERED: ePHEDrine 50MG/ML INJ. ONE (11:37)
[2019-09-25] MEDS ORDERED: LIDOcaine 2% (20mg/ml) 5ml vial ONE (11:37)
[2019-09-25] MEDS ORDERED: rocuronium 10mg/ml inj IV ONE (11:37)
[2019-09-25] MEDS ORDERED: neostigmine methylsulfate 1 MG/ML 10ml vial ONE (11:37)
[2019-09-25] MEDS ORDERED: propofol inj 20 ML IV ONE (11:37)
[2019-09-25] MEDS ORDERED: glycopyrrolate 0.2mg/ml inj ONE (11:37)
[2019-09-25] MEDS ORDERED: ondansetron/PF 4mg/2ml inj ONE (11:37)
[2019-09-25] MEDS ORDERED: ROPIVAcaine 0.2% (10 MG/5 ML) BOLUS INJECTION INTERSCALE PRN (11:45)
--- NOTE | 2019-09-25 12:07 | NUR ---
Received from OR via , accompanied by Anesthesiologist DR RAMIREZ and report given by Anesthesiolgist. AWAKENS TO VOICE. VITALS STABLE. DRESSING DI. YOAHNNES PAIN. LUE IN SIMPLE SLING.
[2019-09-25] MEDS ORDERED: (Dulaglutide (Trulicity) 0.5 ML) SQ SCH (12:15)
[2019-09-25] MEDS ORDERED: ergocalciferol (Vitamin D) 50,000 unit capsule PO SCH (12:15)
[2019-09-25] MEDS ORDERED: nitroGLYCERIN 0.4mg SUBLingual tab SL PRN (12:15)
[2019-09-25] MEDS ORDERED: temazepam 15mg capsule PO PRN (12:15)
[2019-09-25] MEDS: ROPIVAcaine 0.2%/PF PUMP/bolus 550 ML INTERSCALE SCH (13:27)
--- NOTE | 2019-09-25 13:27 | NUR ---
Report called to receiving nurse. Transferred via BED Belongings . Special Issues communicated to receiving nurse. AWAKE AND ORIENTED. VITALS STABLE. DRESSING DI. YOHANNES PAIN. TO ORTHO RM 4022B AT THIS TIME.
[2019-09-25] MEDS: ipratropium 0.5 MG/2.5ML nebule IH SCH ×2 (14:45→21:18)
[2019-09-25] MEDS ORDERED: HYDROcodone/acetaminophen 5mg/325mg tablet PO PRN (19:25)
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
[2019-09-25] MEDS: metFORMIN 500mg tablet PO SCH (20:45)
[2019-09-25] MEDS: ceFAZolin/D5W- 1GM premix 50 ML IV SCH (20:45)
[2019-09-25] MEDS: metoprolol tartrate 50mg tablet PO SCH (20:46)
[2019-09-25] MEDS: ascorbic acid 500mg tablet PO SCH (20:46)
[2019-09-25] MEDS: ferrous sulfate 325mg tablet PO SCH (20:47)
[2019-09-25] MEDS: oxybutynin 5mg tablet PO SCH (20:47)
[2019-09-25] MEDS: apixaban 5mg tablet PO SCH (20:47)
[2019-09-25] MEDS: lamoTRIgine 100mg tablet PO SCH (20:48)
[2019-09-25] MEDS: potassium cl 20mEq in 1/2 NS 1,000 ML IV SCH (20:50)
[2019-09-25] MEDS: budesonide 0.5mg/2ml UD nebule IH SCH (21:18)
[2019-09-25] MEDS: ALBUTEROL INHALER 1 PUFF/90 MCG INHALER IH SCH (21:19)
[2019-09-26] MEDS: ceFAZolin/D5W- 1GM premix 50 ML IV SCH ×2 (00:38→07:08)
[2019-09-26 02:00] VITALS: BP 176/81
[2019-09-26] MEDS: ipratropium 0.5 MG/2.5ML nebule IH SCH ×4 (02:25→20:23)
[2019-09-26] MEDS: potassium cl 20mEq in 1/2 NS 1,000 ML IV SCH ×2 (03:23→11:23)
--- NOTE | 2019-09-26 06:10 | NUR ---
Patient in room ORTHO 4022. I have received report from ALEXI LAYTON and had the opportunity to ask questions and assume patient care.
--- NOTE | 2019-09-26 06:26 | NUR ---
Problems reprioritized. Patient report given, questions answered & plan of care reviewed with Enriuqe LAYTON.
[2019-09-26] MEDS ORDERED: cyanocobalamin 500mcg tablet PO SCH ×2 (08:00→08:26)
[2019-09-26] MEDS ORDERED: aspirin 81mg tablet.DR PO SCH (08:00)
[2019-09-26] MEDS: ALBUTEROL INHALER 1 PUFF/90 MCG INHALER IH SCH ×2 (08:00→20:00)
[2019-09-26] MEDS: diltiazem CD 120mg capsule (once-daily) PO SCH (08:35)
[2019-09-26] MEDS: metFORMIN 500mg tablet PO SCH ×2 (08:36→21:55)
[2019-09-26] MEDS: OMEGA-3/DHA/EPA/FISH OIL 1 EACH CAPSULE.DR PO SCH (08:36)
[2019-09-26] MEDS: ferrous sulfate 325mg tablet PO SCH ×2 (08:36→21:55)
[2019-09-26] MEDS: apixaban 5mg tablet PO SCH ×2 (08:36→21:55)
[2019-09-26] MEDS: oxybutynin 5mg tablet PO SCH ×2 (08:36→21:55)
[2019-09-26] MEDS: losartan 25mg tablet PO SCH (08:36)
[2019-09-26] MEDS: furosemide 20MG tablet PO SCH (08:36)
[2019-09-26] MEDS: metoprolol tartrate 50mg tablet PO SCH ×2 (08:39→22:05)
[2019-09-26] MEDS: calcium carbonate 500mg tablet PO SCH (08:40)
[2019-09-26] MEDS: ascorbic acid 500mg tablet PO SCH ×2 (08:40→21:55)
[2019-09-26] MEDS: famotidine 20mg tablet PO SCH (08:40)
[2019-09-26] MEDS: levoTHYROXINE 25mcg tablet PO SCH (08:40)
[2019-09-26] MEDS: cetirizine 10mg tablet PO SCH (08:41)
[2019-09-26] MEDS: lamoTRIgine 100mg tablet PO SCH ×2 (08:41→21:56)
[2019-09-26] MEDS: HYDROcodone/acetaminophen 10/325mg tab PO PRN ×2 (08:41→16:09)
[2019-09-26] MEDS: allopurinol 100mg tablet PO SCH (08:41)
[2019-09-26] MEDS: vitamin D (cholecalciferol) 1,000 unit tablet PO SCH (08:41)
[2019-09-26] MEDS: budesonide 0.5mg/2ml UD nebule IH SCH ×2 (09:48→20:23)
[2019-09-26 10:00] VITALS: BP 112/59
[2019-09-26 14:00] VITALS: BP 148/67
--- NOTE | 2019-09-26 14:54 | NUR ---
DM consult: Pt with A1c 6.5, DM education not warranted at this time. Pt s/p left total shoulder arthroplasty, POD #1. Pt seen at bedside provided with written and verbal protein education with RD contact information. Pt currently on mechanical soft CHO controlled diet, pending documentation of PO intake. Pt reports an improving appetite and states she generally eats small meals. Pt denies food allergies or difficulty chewing/swallowing however agrees to chop all food as her left arm is in a sling. Pt reports disliking scrambled eggs. Last documented BM 09/10, pt confirms this and states it's usual to have a BM q 3-4 weeks. Pt agrees to power pudding with dinner tonight and daily with breakfast. All food preferences were d/w dietary. Will continue to follow. Addendum: 09/26/19 at [address] Amended: Links added.
[2019-09-26 18:00] VITALS: BP 117/47
--- NOTE | 2019-09-26 18:00 | NUR ---
Patient in room ORTHO 4022. I have received report from Enrique LAYTON and had the opportunity to ask questions and assume patient care.
--- NOTE | 2019-09-26 18:10 | NUR ---
Problems reprioritized. Patient report given, questions answered & plan of care reviewed with CARSON LAYTON.
[2019-09-26 22:00] VITALS: BP 99/52
--- NOTE | 2019-09-27 01:23 | NUR ---
Patient states that she has one bowel movement per month, states her last one was 09/10. Says "this is normal for me" Patient has present bowel sounds.
--- NOTE | 2019-09-27 01:55 | NUR ---
Peripheral IV documented in forearm, there is a 22g in the patients Right Hand that is saline locked. Addendum: 09/27/19 at 0156 by Ne HANEY Amended: Links added.
[2019-09-27] MEDS: ipratropium/albuterol 3ml nebule NEB SCH ×2 (03:13→08:59)
--- NOTE | 2019-09-27 06:21 | NUR ---
Problems reprioritized. Patient report given, questions answered & plan of care reviewed with Coco LAYTON.
[2019-09-27 06:30] VITALS: BP 86/47
--- NOTE | 2019-09-27 06:30 | NUR ---
Patient in room ORTHO 4022. I have received report from CALIN Luke and had the opportunity to ask questions and assume patient care.
[2019-09-27] MEDS: losartan 25mg tablet PO SCH (08:56)
[2019-09-27] MEDS: apixaban 5mg tablet PO SCH (08:56)
[2019-09-27] MEDS: oxybutynin 5mg tablet PO SCH (08:56)
[2019-09-27] MEDS: diltiazem CD 120mg capsule (once-daily) PO SCH (08:56)
[2019-09-27] MEDS: metoprolol tartrate 50mg tablet PO SCH (08:57)
[2019-09-27] MEDS: furosemide 20MG tablet PO SCH (08:57)
[2019-09-27] MEDS: metFORMIN 500mg tablet PO SCH (08:57)
[2019-09-27] MEDS: lamoTRIgine 100mg tablet PO SCH (08:57)
[2019-09-27] MEDS: ferrous sulfate 325mg tablet PO SCH (08:57)
[2019-09-27] MEDS: OMEGA-3/DHA/EPA/FISH OIL 1 EACH CAPSULE.DR PO SCH (08:57)
[2019-09-27] MEDS: ascorbic acid 500mg tablet PO SCH (08:58)
[2019-09-27] MEDS: levoTHYROXINE 25mcg tablet PO SCH (08:58)
[2019-09-27] MEDS: famotidine 20mg tablet PO SCH (08:58)
[2019-09-27] MEDS: calcium carbonate 500mg tablet PO SCH (08:58)
[2019-09-27] MEDS: vitamin D (cholecalciferol) 1,000 unit tablet PO SCH (08:58)
[2019-09-27] MEDS: cetirizine 10mg tablet PO SCH (08:59)
[2019-09-27] MEDS: allopurinol 100mg tablet PO SCH (08:59)
[2019-09-27] MEDS: budesonide 0.5mg/2ml UD nebule IH SCH (08:59)
[2019-09-27 10:00] VITALS: BP 75/41
[2019-09-27] MEDS: HYDROcodone/acetaminophen 10/325mg tab PO PRN (10:18)
--- NOTE | 2019-09-27 14:15 | NUR ---
Received discharge orders from Dr. Allison. On Q ball filled by Pharmacy and attached to pts line. IV in left hand dc'd with cannula intact. No redness/swelling at insertion site. Bandaid applied after pressure. TC placed to [facility] transportation and arranged a ride home for pt to home. Pickup time was 1510. Pt transported via w/c to [facility] and signed form for personal belongings at bowling or skating front desk clerk.
[2019-09-27] MEDS: ROPIVAcaine 0.2%/PF PUMP/bolus 550 ML INTERSCALE SCH (14:23)
--- NOTE | 2019-09-28 15:41 | NUR ---
Case Management DC follow up: spoke to pt via telephone. Reports feeling real good, L shoulder hurts a little, but is fine. remains afebrile, swelling has gone down/elevates arm. Verbalizes understanding of post op care to L shoulder. Denies s/s infection to surg site. Denies CP, emergent general pain, SOB, respiratory distress, NV, dizziness, syncope episodes, abd pain, EVANS, blurry vision. Verbalizes understanding of medications and why prescribed. Taking as ordered, no ase noted r/t polypharmacy/new meds. verbalizes understanding of s/s that would warrant 9-11/ER visit for evaluation. Acknowledges importance of scheduling/keeping appointments w/PCP/Dr Miranda/[place]/ jovany love to make appt/referrals/specialists/Dr Allison. Needs met, questions answered at OK. No further questions at this time.
== END 2019-09-27 15:05 | disposition home or self-care (01) | DRG 483 ==
LOC: PAS IN 07:43 → EDSTATUS 10:30 → ORTHO 4S 13:39
PROVIDERS: ADMIT Orthopaedic Surgery; ATTEND Orthopaedic Surgery
PROC: 0LS40ZZ Reposition Left Upper Arm Tendon, Open Approach (ICD-10-PCS; 2019-09-25)
PROC: 3E0T3BZ Introduction of Anesthetic Agent into Peripheral Nerves and Plexi, Percutaneous Approach (ICD-10-PCS; 2019-09-25)
PROC: 0RRK00Z Replacement of Left Shoulder Joint with Reverse Ball and Socket Synthetic Substitute, Open Approach (ICD-10-PCS; principal; 2019-09-25 09:41)
DX: M19.012 Primary osteoarthritis, left shoulder (principal); M65.812 Other synovitis and tenosynovitis, left shoulder; I25.10 Atherosclerotic heart disease of native coronary artery without angina pectoris; K21.9 Gastro-esophageal reflux disease without esophagitis; M75.22 Bicipital tendinitis, left shoulder; E66.8 Other obesity; G89.29 Other chronic pain; M10.9 Gout, unspecified; E78.5 Hyperlipidemia, unspecified; E03.9 Hypothyroidism, unspecified; J45.909 Unspecified asthma, uncomplicated; Z87.440 Personal history of urinary (tract) infections; Z88.0 Allergy status to penicillin; Z88.1 Allergy status to other antibiotic agents; Z91.040 Latex allergy status; Z68.28 Body mass index [BMI] 28.0-28.9, adult
CPT/HCPCS: 36415; 80053; 82948; 83036; 84443; 85025; 85610; 85730; 87081; 93005; 94640; 94760; 97110; 97116; 97162; 97530; A4565; A4618; A7000; C1713; C1776; G0378; J0690; J2001; J2250; J2405; J2704; J2710; J2795; J3010; J3370; J3480; J3490; J7120; J7626

== ENCOUNTER 2021-07-12 17:33 | Emergency (ER) | payer MEDICARE, MEDICAID ==
[~2021-07-12] VITALS: Ht 165.1 cm; Wt 59.1 kg
[~2021-07-12 17:33] MED LIST changes: -ASPI81TA52 PO; +ATOR10TA70 PO; -ATOR10TA87 PO; -DOCUMENT DATE & TIME OF BETA-BLOCKER PO ONE; -DULA1.5P SUBCUT; -ERGO500041 PO; -INSU100C4 SQ; -LOSA100T57 PO; +LOSA50TA64 PO; -METF500T PO; +NYSPWD TOP; -OXYB5TAB16 PO; -TEMA30CA PO; -UMEC62.5 INH; -cefazolin/dext.iso 2gm/100ml 100 ML IV ONE; -famotidine 20mg tablet PO ONE; -ringers solution, lacted 1,000 ML IV SCH; -tranexamic acid inj. 780 MG in normal saline 100ml IV soln 100 ML IV ONE; -vancomycin inj 1,500 MG in normal saline 300ml IV soln IV ONE
[2021-07-12 17:51] VITALS: BP 182/105
[2021-07-12 18:37] LABS: BASOPHILS # (AUTO) 0.1 X10'3 (0-0.2); BASOPHILS % (AUTO) 0.5 % (0-1); EOSINOPHILS # (AUTO) 0.1 X10'3 (0-0.9); EOSINOPHILS % (AUTO) 0.9 % (0-6); HEMATOCRIT 38.1 % (35.0-45.0); HEMOGLOBIN 12.5 g/dl (12.0-16.0); LYMPHOCYTES # (AUTO) 1.1 X10'3 (1.1-4.8); LYMPHOCYTES % (AUTO) 11.1 % (21-51); MEAN CORPUSCULAR HEMOGLOBIN 32.4 PG (27.0-31.0); MEAN CORPUSCULAR HGB CONC 32.9 g/dL (33.0-36.5); MEAN CORPUSCULAR VOLUME 98.4 FL (78-98); MEAN PLATELET VOLUME 7.3 FL (7.4-10.4); MONOCYTES # (AUTO) 0.5 X10'3 (0-0.9); MONOCYTES % (AUTO) 4.6 % (2-12); NEUTROPHILS % (AUTO) 82.9 % (42-75); PLATELET COUNT 302 X10'3 (140-440); RED BLOOD COUNT 3.88 X10'6 (4.20-5.60); RED CELL DISTRIBUTION WIDTH 15.3 % (11.5-14.5); WHITE BLOOD COUNT 9.7 X10'3 (4.5-11.0)
[2021-07-12 18:51] LABS: ALANINE AMINOTRANSFERASE 46 U/L (12-78); ALBUMIN 3.6 G/DL (3.4-5.0); ALKALINE PHOSPHATASE 84 IU/L (46-116); ANION GAP 8 (8-16); ASPARTATE AMINO TRANSFERASE 22 U/L (10-37); BILIRUBIN,TOTAL 0.6 MG/DL (0.1-1.0); BLOOD UREA NITROGEN 13 MG/DL (7-18); BUN/CREATININE RATIO 13.8 (6.6-38.0); CALCIUM 9.6 MG/DL (8.5-10.1); CHLORIDE 106 MMOL/L (99-107); CREATININE 0.94 MG/DL (0.40-0.90); GLUCOSE 199 MG/DL (70-104); POTASSIUM 3.7 MMOL/L (3.5-5.1); SODIUM 141 MMOL/L (135-145); TOTAL CARBON DIOXIDE 26.7 MMOL/L (24-32); TOTAL PROTEIN 7.2 G/DL (6.4-8.2); eGFR 58 ML/MIN
[2021-07-12] MEDS ORDERED: DOXY100C76 PO (19:09)
== END 2021-07-12 19:43 | disposition home or self-care (01) ==
LOC: ER 17:34
DX: N39.0 Urinary tract infection, site not specified (principal); Z20.822 Contact with and (suspected) exposure to COVID-19; R50.9 Fever, unspecified; R30.9 Painful micturition, unspecified; I11.0 Hypertensive heart disease with heart failure; I50.9 Heart failure, unspecified; J44.9 Chronic obstructive pulmonary disease, unspecified; E11.9 Type 2 diabetes mellitus without complications; G89.29 Other chronic pain; F41.9 Anxiety disorder, unspecified; F31.9 Bipolar disorder, unspecified; Z87.440 Personal history of urinary (tract) infections; Z98.890 Other specified postprocedural states; Z88.0 Allergy status to penicillin; Z91.040 Latex allergy status; Z88.1 Allergy status to other antibiotic agents; Z79.2 Long term (current) use of antibiotics; Z79.899 Other long term (current) drug therapy
CPT/HCPCS: 36415; 71045; 80053; 84484; 85025; 87635; 99284; C9803

== ENCOUNTER 2021-07-14 05:25 | Emergency (ER) | payer MEDICARE, MEDICAID ==
[~2021-07-14] VITALS: Ht 165.1 cm; Wt 59.1 kg
[~2021-07-14 05:25] MED LIST changes: +DOXY100C76 PO
[2021-07-14] MEDS ORDERED: TETanus/Pertussis (Acell)/Diphther VAC/PF (Tdap-Adult) 0.5ml syringe IMVAC ONE (05:55)
--- NOTE | 2021-07-14 05:57 | NUR ---
WARMING MEASURES TAKEN IN TRIAGE. ED/MD AND FILES SUPERVISOR NOTIFIED. ATTEMPTS ARE BEING MADE TO CLEAR A ROOM FOR THIS PATIENT.
[2021-07-14] MEDS ORDERED: iohexol 300mg/ml 100ml inj. ONE (05:59)
[2021-07-14 06:47] LABS: BASOPHILS % (AUTO) 0.4 % (0-1); EOSINOPHILS % (AUTO) 0.3 % (0-6); HEMATOCRIT 34.2 % (35.0-45.0); LYMPHOCYTES # (AUTO) 0.8 X10'3 (1.1-4.8); LYMPHOCYTES % (AUTO) 8.4 % (21-51); MEAN CORPUSCULAR HEMOGLOBIN 33.3 PG (27.0-31.0); MEAN CORPUSCULAR VOLUME 95.1 FL (78-98); MEAN PLATELET VOLUME 7.1 FL (7.4-10.4); MONOCYTES # (AUTO) 0.5 X10'3 (0-0.9); MONOCYTES % (AUTO) 5.7 % (2-12); NEUTROPHILS % (AUTO) 85.2 % (42-75); PLATELET COUNT 319 X10'3 (140-440); RED BLOOD COUNT 3.59 X10'6 (4.20-5.60); RED CELL DISTRIBUTION WIDTH 15.4 % (11.5-14.5); WHITE BLOOD COUNT 9.4 X10'3 (4.5-11.0)
[2021-07-14 06:56] LABS: ALANINE AMINOTRANSFERASE 66 U/L (12-78); ALBUMIN 3.6 G/DL (3.4-5.0); ALKALINE PHOSPHATASE 85 IU/L (46-116); ANION GAP 13 (8-16); ASPARTATE AMINO TRANSFERASE 94 U/L (10-37); BILIRUBIN,TOTAL 0.5 MG/DL (0.1-1.0); BLOOD UREA NITROGEN 39 MG/DL (7-18); BUN/CREATININE RATIO 29.3 (6.6-38.0); CALCIUM 10.3 MG/DL (8.5-10.1); CHLORIDE 107 MMOL/L (99-107); CREATININE 1.33 MG/DL (0.40-0.90); LIPASE 77 U/L (73-393); POTASSIUM 3.8 MMOL/L (3.5-5.1); SODIUM 143 MMOL/L (135-145); TOTAL PROTEIN 7.1 G/DL (6.4-8.2); eGFR 39 ML/MIN
[2021-07-14 07:00] LABS: GLUCOSE 44 MG/DL (70-104)
--- NOTE | 2021-07-14 07:10 | NUR ---
PT ACCUCHEK 30; DR. ROWAN NOTIFIED. AWAITING NEW ORDERS.
[2021-07-14] MEDS ORDERED: dextrose 50%-water 50ml dispensing syringe IV ONE (07:15)
--- NOTE | 2021-07-14 08:00 | NUR ---
MEAL TRAY TO BEDSIDE. PT AWAKE TO EAT. NOTIFIED THAT WILL CHECK SUGAR AGAIN SHORTLY.
--- NOTE | 2021-07-14 14:37 | NUR ---
Spoke with son Tommie , states that patient was evicted from her apartment in [facility] and she has been staying with different people since, explained that patient has been stating on the streets over this last week, states that he can not bring her to his place because he rents a room, he knows that patient has applied for HUD housing, states that patient has refused to go to the [facility] in the past, states that it is OK to send her there, spoke with daughter Samy who lives in [place], basically states the same thing brother Tommie says, called [facility], female bed is open, asked ER unit tech to notify Dr. Arevalo that patient can be discharged to the [facility]
[2021-07-14 14:44] VITALS: BP 109/41
--- NOTE | 2021-07-14 15:14 | NUR ---
ATTEMPTED TO GAIT TEST PT; UNABLE TO AMBULATE WITHOUT WALKER. WALKER PROVIDED AND PT TOLERATED POORLY SHE REPORTS PAIN. DR. ROWAN NOTIFIED.
--- NOTE | 2021-07-14 15:15 | NUR ---
CONTACTED EDYTA WITH CASE MANAGEMENT AND NOTIFIED THAT PT CANNOT AMBULATE WITHOUT WALKER. REQUESTED THAT PT GET A WALKER FOR DISCHARGE. Addendum: 07/14/21 at 1520 by [email or web address] PT REQUIRES FOUR WHEEL WALKER FOR AMBULATION AND DISCHARGE.
--- NOTE | 2021-07-14 16:52 | NUR ---
PAGEAna LAN WITH CASE MANAGEMENT TO INQUIRE ABOUT STATUS OF WALKER.
--- NOTE | 2021-07-14 19:00 | NUR ---
CALL OUT TO TRY TO REACH A FAMILY MEMBER FOR PT. PT'S SON HAS PHONE THAT IS NOT IN SERVICE, MESSAGE LEFT ON VOICEMAIL FOR PT'S DAUGHTER, NATALIE, AT [phone]. PT NOT ABLE TO REMEMBER HER OLDER DAUGHTER'S PHONE NUMBER
== END 2021-07-14 21:04 | disposition home or self-care (01) ==
LOC: ER 05:26
DX: S00.83XA Contusion of other part of head, initial encounter (principal); E11.649 Type 2 diabetes mellitus with hypoglycemia without coma; R53.1 Weakness; N39.0 Urinary tract infection, site not specified; W19.XXXA Unspecified fall, initial encounter; Y93.89 Activity, other specified; Y92.89 Other specified places as the place of occurrence of the external cause; Y99.8 Other external cause status
CPT/HCPCS: 90471; 90715; 96374; 99285; J3490; Q9967; 36415; 70450; 70486; 71260; 72125; 74177; 80053; 82948; 83690; 85025; 93005

== ENCOUNTER 2021-07-15 18:36 | Emergency (ER) | payer MEDICARE, MEDICAID ==
[~2021-07-15] VITALS: Ht 154.9 cm; Wt 59.1 kg
[2021-07-15] MEDS ORDERED: haloperidol 5mg tablet PO ONE (21:30)
[2021-07-15 23:06] LABS: BASOPHILS % (AUTO) 0.4 % (0-1); EOSINOPHILS # (AUTO) 0.1 X10'3 (0-0.9); EOSINOPHILS % (AUTO) 0.8 % (0-6); HEMATOCRIT 33.3 % (35.0-45.0); HEMOGLOBIN 11.4 g/dl (12.0-16.0); LYMPHOCYTES # (AUTO) 0.9 X10'3 (1.1-4.8); LYMPHOCYTES % (AUTO) 12.2 % (21-51); MEAN CORPUSCULAR HEMOGLOBIN 33.3 PG (27.0-31.0); MEAN CORPUSCULAR HGB CONC 34.3 g/dL (33.0-36.5); MEAN CORPUSCULAR VOLUME 97.1 FL (78-98); MEAN PLATELET VOLUME 7.2 FL (7.4-10.4); MONOCYTES # (AUTO) 0.7 X10'3 (0-0.9); NEUTROPHILS % (AUTO) 77.6 % (42-75); PLATELET COUNT 287 X10'3 (140-440); RED BLOOD COUNT 3.43 X10'6 (4.20-5.60); RED CELL DISTRIBUTION WIDTH 15.2 % (11.5-14.5); WHITE BLOOD COUNT 7.7 X10'3 (4.5-11.0)
[2021-07-15 23:25] LABS: ALANINE AMINOTRANSFERASE 63 U/L (12-78); ALBUMIN 3.4 G/DL (3.4-5.0); ALKALINE PHOSPHATASE 81 IU/L (46-116); ANION GAP 12 (8-16); ASPARTATE AMINO TRANSFERASE 54 U/L (10-37); BILIRUBIN,TOTAL 0.7 MG/DL (0.1-1.0); BLOOD UREA NITROGEN 19 MG/DL (7-18); BUN/CREATININE RATIO 21.3 (6.6-38.0); CALCIUM 9.7 MG/DL (8.5-10.1); CHLORIDE 106 MMOL/L (99-107); CREATININE 0.89 MG/DL (0.40-0.90); GLUCOSE 176 MG/DL (70-104); POTASSIUM 3.8 MMOL/L (3.5-5.1); SODIUM 142 MMOL/L (135-145); TOTAL CARBON DIOXIDE 24.4 MMOL/L (24-32); TOTAL PROTEIN 6.7 G/DL (6.4-8.2); eGFR 62 ML/MIN
[2021-07-15 23:38] LABS: ETHANOL < 0.010 GM/DL (0.0-0.010)
[2021-07-16 00:38] LABS: CLARITY,URINE SLIGHTLY CLOUDY (Clear); COLOR,URINE YELLOW (Yellow); GLUCOSE, URINE 500 mg/dl (Neg); KETONES,URINE TRACE mg/dl (Neg); LEUKOCYTE ESTERASE ,URINE SMALL (Neg); NITRITES, URINE NEGATIVE (Neg); OCCULT BLOOD,URINE TRACE-INTACT (Neg); PH,URINE 5.5 (4.8-8.0); PROTEIN,URINE 30 mg/dl (Neg); UROBILINOGEN,URINE 0.2 E.U/dL (0.2-1.0)
[2021-07-16 00:43] LABS: UA COLLECTION TYPE STRAIGHT CATH
[2021-07-16 00:44] LABS: BACTERIA,URINE FEW /HPF (Neg); RBC,URINE 0-2 /HPF (0-2); SQUAMOUS EPITHELIAL CELL,UR FEW /LPF (FEW); WBC CLUMPS,URINE MODERATE /HPF (NEGATIVE); WBC,URINE 20-30 /HPF (0-4)
[2021-07-16 00:51] LABS: URINE AMPHETAMINE SCREEN NEGATIVE (Neg); URINE BARBITUATE SCREEN NEGATIVE (Neg); URINE BENZODIAZEPINES SCREEN NEGATIVE (Neg); URINE CANNABINOID SCREEN NEGATIVE (Neg); URINE COCAINE SCREEN NEGATIVE (Neg); URINE METHADONE SCREEN NEGATIVE (Neg); URINE OPIATE SCREEN NEGATIVE (Neg); URINE PHENCYCLIDINE SCREEN NEGATIVE (Neg)
[2021-07-16] MEDS ORDERED: ondansetron 4mg rapidly disintigrating tab PO PRN (01:40)
[2021-07-16] MEDS ORDERED: diphenhydrAMINE 50 mg/ml inj IV PRN (01:40)
[2021-07-16] MEDS ORDERED: magnesium hydroxide 30ml (MOM) UD suspension PO PRN (01:40)
[2021-07-16] MEDS ORDERED: acetaminophen 650mg rectal suppository RC PRN (01:40)
[2021-07-16] MEDS ORDERED: bisacodyl 10mg suppository rectal RC PRN (01:40)
[2021-07-16] MEDS ORDERED: acetaminophen 325mg tablet PO PRN ×2 (01:40)
[2021-07-16] MEDS ORDERED: mag hydrox/Alum hydrox/simeth 30ml oral suspension PO PRN (01:40)
[2021-07-16] MEDS ORDERED: morphine 2 MG/ML inj. syringe IV PRN ×2 (01:40)
[2021-07-16] MEDS ORDERED: ondansetron/PF 4mg/2ml inj IV PRN (01:40)
[2021-07-16] MEDS ORDERED: MESSAGE TO PHARMACY PO ONE (01:45)
[2021-07-16] MEDS ORDERED: glucagon, human recombinant 1mg kit SUBCUT PRN (01:45)
[2021-07-16] MEDS ORDERED: dextrose 50%-water 50ml dispensing syringe IV PRN ×2 (01:45)
[2021-07-16] MEDS ORDERED: dextrose ORAL solution 15 GM/59 ML bottle PO PRN ×2 (01:45)
[2021-07-16] MEDS ORDERED: diazepam inj 5 MG/ML inj. IV PRN (02:15)
[2021-07-16] MEDS ORDERED: haloperidol lactate 5mg/ml inj IM PRN (02:15)
[2021-07-16] MEDS: sodium chloride 0.45% 1,000 ML IV SCH ×2 (02:57→12:00)
[2021-07-16 05:02] LABS: HEMOGLOBIN A1C 7.5 % (4.5-6.2)
[2021-07-16 05:10] LABS: CREATINE KINASE 360 U/L (26-192); LIPASE 78 U/L (73-393); PHOSPHORUS 2.7 MG/DL (2.3-4.5)
[2021-07-16 05:48] LABS: APTT 26 SECONDS (22-32); D-DIMER 0.34 MG/L FEU (0-0.50)
--- NOTE | 2021-07-16 06:30 | NUR ---
assumed care of pt, found sleeping in bed. no distress noted. awaiting admit bed.
[2021-07-16] MEDS: docusate sod 100mg capsule PO SCH ×2 (07:19→20:00)
--- NOTE | 2021-07-16 09:20 | NUR ---
pt now awake, meal tray provided. sitting in bed, tolerating will. requesting pain meds, will carry out.
[2021-07-16 09:45] LABS: BASOPHILS # (AUTO) 0.1 X10'3 (0-0.2); EOSINOPHILS # (AUTO) 0.1 X10'3 (0-0.9); EOSINOPHILS % (AUTO) 2.1 % (0-6); HEMATOCRIT 31.6 % (35.0-45.0); HEMOGLOBIN 10.5 g/dl (12.0-16.0); LYMPHOCYTES # (AUTO) 0.7 X10'3 (1.1-4.8); LYMPHOCYTES % (AUTO) 11.4 % (21-51); MEAN CORPUSCULAR HEMOGLOBIN 32.4 PG (27.0-31.0); MEAN CORPUSCULAR HGB CONC 33.3 g/dL (33.0-36.5); MEAN CORPUSCULAR VOLUME 97.3 FL (78-98); MEAN PLATELET VOLUME 7.4 FL (7.4-10.4); MONOCYTES # (AUTO) 0.5 X10'3 (0-0.9); MONOCYTES % (AUTO) 8.3 % (2-12); NEUTROPHILS # (AUTO) 4.7 X10'3 (1.8-7.7); NEUTROPHILS % (AUTO) 77.2 % (42-75); PLATELET COUNT 247 X10'3 (140-440); RED BLOOD COUNT 3.25 X10'6 (4.20-5.60); RED CELL DISTRIBUTION WIDTH 15.5 % (11.5-14.5); WHITE BLOOD COUNT 6.1 X10'3 (4.5-11.0)
[2021-07-16 09:55] LABS: ALANINE AMINOTRANSFERASE 48 U/L (12-78); ALBUMIN 2.7 G/DL (3.4-5.0); ALBUMIN/GLOBULIN RATIO 0.9 (1.1-1.5); ALKALINE PHOSPHATASE 71 IU/L (46-116); ANION GAP 10 (8-16); ASPARTATE AMINO TRANSFERASE 35 U/L (10-37); BILIRUBIN,TOTAL 0.7 MG/DL (0.1-1.0); BLOOD UREA NITROGEN 13 MG/DL (7-18); BUN/CREATININE RATIO 17.1 (6.6-38.0); CALCIUM 9.3 MG/DL (8.5-10.1); CHLORIDE 110 MMOL/L (99-107); CREATINE KINASE 150 U/L (26-192); CREATININE 0.76 MG/DL (0.40-0.90); GLUCOSE 154 MG/DL (70-104); POTASSIUM 4.3 MMOL/L (3.5-5.1); SODIUM 144 MMOL/L (135-145); TOTAL CARBON DIOXIDE 24.2 MMOL/L (24-32); TOTAL PROTEIN 5.7 G/DL (6.4-8.2); eGFR 74 ML/MIN
--- NOTE | 2021-07-16 10:23 | NUR ---
provided pt with water, warm blanket and tissues.
--- NOTE | 2021-07-16 11:09 | NUR ---
pt up to bsc with slow movement, steady on feet, standby assistance provided. new linen changed.
[2021-07-16] MEDS ORDERED: OXYB5TAB16 PO (11:11)
[2021-07-16] MEDS ORDERED: HUM7525 SQ ×2 (11:11)
[2021-07-16] MEDS ORDERED: [UNRECOGNIZED DRUG - CODE] EACHEYE (11:11)
[2021-07-16] MEDS ORDERED: LOSA100T57 PO (11:11)
[2021-07-16] MEDS ORDERED: CARB15DR2 EACHEYE (11:11)
[2021-07-16] MEDS ORDERED: FLO44IN IH (11:11)
[2021-07-16] MEDS ORDERED: ALLO300T2 PO (11:11)
[2021-07-16] MEDS ORDERED: APIX5TAB3 PO (11:11)
[2021-07-16] MEDS: levoFLOXACIN 750MG TABLET PO SCH (11:13)
--- NOTE | 2021-07-16 12:50 | NUR ---
pt angry with staff because she was not provided a snack. informed pt that lunch tray will be coming here shortly. pt states she has not been taken care of for the "last five days" she has been here. pt provided with wipes and new brief.
--- NOTE | 2021-07-16 13:15 | NUR ---
pt provided with lunch tray, sitting in bed tolerating well.
--- NOTE | 2021-07-16 15:45 | NUR ---
dr. christensen at bedside
--- NOTE | 2021-07-16 18:58 | NUR ---
PT BP ELEVATED AT 212/111 AFTER TRYING BP TWO TIMES. PAGED DR. BANSAL WHO IS THE NIGHT HOSPITALIST REQUESTING A MEDICATION
--- NOTE | 2021-07-16 18:59 | NUR ---
PT VERY EMOTIONAL, STATING SHE IS UNHAPPY AND CRYING ABOUT RECENT EVENTS IN HER LIFE. PT DISORIENTED TO QUESTIONS AT TIMES AND STATES YES INNAPROPRIATELY
[2021-07-16] MEDS ORDERED: polyvinyl alcohol ophthalmic drops 15ml bottle EACHEYE PRN (19:15)
[2021-07-16] MEDS: tetrahydrozoline 0.05% 15ml ophthalmic drops EACHEYE SCH (20:00)
[2021-07-16] MEDS: metoprolol tartrate 50mg tablet PO SCH (20:26)
[2021-07-16] MEDS: furosemide 20MG tablet PO SCH (20:27)
[2021-07-16] MEDS: atorvastatin 10mg tablet PO SCH (20:27)
[2021-07-16] MEDS: famotidine 20mg tablet PO SCH (20:27)
[2021-07-16] MEDS: apixaban 5mg tablet PO SCH (20:34)
[2021-07-16] MEDS: lamoTRIgine 100mg tablet PO SCH (20:34)
[2021-07-16] MEDS ORDERED: temazepam 15mg capsule PO PRN (21:00)
[2021-07-16] MEDS: budesonide 0.5mg/2ml UD nebule IH SCH (21:26)
[2021-07-17] MEDS: sodium chloride 0.45% 1,000 ML IV SCH ×3 (00:15→17:00)
--- NOTE | 2021-07-17 06:30 | NUR ---
Assumed care of patient; awaiting bed assignment. Patient states she needs to make a bowel movement.
--- NOTE | 2021-07-17 06:35 | NUR ---
Patient assisted to bedside commode. Bed cleaned and clean linens placed on bed.
--- NOTE | 2021-07-17 07:00 | NUR ---
Patient skin cleaned of urinary incontinence and patient placed in brief with pads per request; clean gown placed on patient. Patient states she does not want to use Purewick. Patient given warm blankets, fresh water, and call light within reach.
[2021-07-17] MEDS: budesonide 0.5mg/2ml UD nebule IH SCH ×2 (07:34→21:13)
[2021-07-17 07:39] LABS: BASOPHILS % (AUTO) 0.9 % (0-1); EOSINOPHILS # (AUTO) 0.1 X10'3 (0-0.9); EOSINOPHILS % (AUTO) 2.8 % (0-6); HEMATOCRIT 31.2 % (35.0-45.0); HEMOGLOBIN 10.5 g/dl (12.0-16.0); LYMPHOCYTES # (AUTO) 0.8 X10'3 (1.1-4.8); LYMPHOCYTES % (AUTO) 15.1 % (21-51); MEAN CORPUSCULAR HEMOGLOBIN 32.7 PG (27.0-31.0); MEAN CORPUSCULAR HGB CONC 33.6 g/dL (33.0-36.5); MEAN CORPUSCULAR VOLUME 97.4 FL (78-98); MEAN PLATELET VOLUME 7.7 FL (7.4-10.4); MONOCYTES # (AUTO) 0.5 X10'3 (0-0.9); MONOCYTES % (AUTO) 10.7 % (2-12); NEUTROPHILS # (AUTO) 3.6 X10'3 (1.8-7.7); NEUTROPHILS % (AUTO) 70.5 % (42-75); PLATELET COUNT 239 X10'3 (140-440); RED BLOOD COUNT 3.21 X10'6 (4.20-5.60); WHITE BLOOD COUNT 5.1 X10'3 (4.5-11.0)
[2021-07-17] MEDS: tetrahydrozoline 0.05% 15ml ophthalmic drops EACHEYE SCH ×2 (08:00→20:00)
[2021-07-17] MEDS ORDERED: naloxone 0.4 mg/ml inj ONE (08:00)
[2021-07-17 08:11] LABS: ALANINE AMINOTRANSFERASE 37 U/L (12-78); ALBUMIN 2.6 G/DL (3.4-5.0); ALBUMIN/GLOBULIN RATIO 0.8 (1.1-1.5); ALKALINE PHOSPHATASE 63 IU/L (46-116); ANION GAP 9 (8-16); ASPARTATE AMINO TRANSFERASE 22 U/L (10-37); BILIRUBIN,TOTAL 0.4 MG/DL (0.1-1.0); BLOOD UREA NITROGEN 13 MG/DL (7-18); BUN/CREATININE RATIO 14.9 (6.6-38.0); CALCIUM 9.3 MG/DL (8.5-10.1); CHLORIDE 109 MMOL/L (99-107); CHOL/HDL RATIO 2.5 (0.00-4.99); CHOLESTEROL 136 MG/DL (0-200); CREATININE 0.87 MG/DL (0.40-0.90); GLUCOSE 145 MG/DL (70-104); HDL CHOLESTEROL 54 MG/DL (35-60); LDL CHOLESTEROL 62 MG/DL (50-100); POTASSIUM 4.1 MMOL/L (3.5-5.1); SODIUM 143 MMOL/L (135-145); TOTAL CARBON DIOXIDE 25.4 MMOL/L (24-32); TOTAL PROTEIN 5.7 G/DL (6.4-8.2); TRIGLYCERIDES 78 MG/DL (20-135); eGFR 64 ML/MIN
[2021-07-17] MEDS: famotidine 20mg tablet PO SCH ×2 (08:55→20:10)
[2021-07-17] MEDS: allopurinol 300 MG tablet PO SCH (08:58)
[2021-07-17] MEDS: levoTHYROXINE 25mcg tablet PO SCH (08:58)
[2021-07-17] MEDS: diltiazem CD 120mg capsule (once-daily) PO SCH (08:58)
[2021-07-17] MEDS: docusate sod 100mg capsule PO SCH ×2 (08:59→20:00)
[2021-07-17] MEDS: metoprolol tartrate 50mg tablet PO SCH ×2 (08:59→20:00)
[2021-07-17] MEDS: losartan 50mg tablet PO SCH (09:00)
[2021-07-17] MEDS: lamoTRIgine 100mg tablet PO SCH ×2 (09:01→20:10)
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
--- NOTE | 2021-07-17 10:30 | NUR ---
Patient still on commode; removed all monitor devices.
--- NOTE | 2021-07-17 10:39 | NUR ---
Patient states she wants to leave; Dr. Strange paged, will discharge.
[2021-07-17] MEDS ORDERED: LEVO500T90 PO (10:49)
--- NOTE | 2021-07-17 11:00 | NUR ---
Patient requests to not have monitor devices on; respiratory rate 16.
[2021-07-17] MEDS: apixaban 5mg tablet PO SCH ×2 (12:00→20:10)
[2021-07-17] MEDS: furosemide 20MG tablet PO SCH ×2 (12:00→20:10)
--- NOTE | 2021-07-17 12:54 | NUR ---
giving lunch break to primary nurse and recived call from medical social worker dave ,as per her pt is waiting for pschy eval for [employer] disability for pschy meds adjustment .pt is on 1798 hold and packet is sent to [facility] and they will come and eval the pt .will sbar to primary nurse.
[2021-07-17] MEDS: levoFLOXACIN 750MG TABLET PO SCH (13:40)
--- NOTE | 2021-07-17 13:43 | NUR ---
Patient given fresh water in jug at bedside. Patient sitting in bed, eating lunch. No requests or needs at this time.
--- NOTE | 2021-07-17 14:00 | NUR ---
Mental health staff at bedside.
--- NOTE | 2021-07-17 16:14 | NUR ---
Received patient to bed #21. Pt ambulated to bed with 2PA from main ED. Pt presents confused and is talking nonsensical to herself.
--- NOTE | 2021-07-17 17:41 | NUR ---
Patient has been compliant with care. Pt lays in bed and consistenly talks to herself, pt is hypervigilant and when she hears other conversations ask "are you talking about me?" Defense Attorney received order one time dose of Seroquel 50mg, however pt refused to take. Pt is A&O to year, date and current president. Pt presents hypomanic. Addendum: 07/17/21 at 1851 by AMELIE Received in report pt's last blood sugar was less then 200. Unable to verify in chart.
--- NOTE | 2021-07-17 17:57 | NUR ---
Pt ambulated to restroom with FWW. Miner Placer was SIMONE. Pt gait steady, pt requires some redirection as her attention is easily distracted.
[2021-07-17] MEDS ORDERED: QUEtiapine 25mg tablet PO ONE (18:40)
[2021-07-17] MEDS: atorvastatin 10mg tablet PO SCH (20:09)
[2021-07-17] MEDS: HYDROcodone/acetaminophen 10/325mg tab PO PRN (20:09)
--- NOTE | 2021-07-17 20:30 | NUR ---
Patient took all medication and rt preformed breathing treatment . Patient ate 80% of dinner and refused snack. Patient was given prn Meally for 10/10 pain. patient currently resting comfortablty
--- NOTE | 2021-07-17 22:36 | NUR ---
Patient continues to be coughing up green mucus and complains of discomfort in her chest. Patient coughing has statred to subside after breathing treatment and patient is now sleeping.
--- NOTE | 2021-07-18 00:35 | NUR ---
Patient observed sleeping, breaths even and unlabored.
--- NOTE | 2021-07-18 02:32 | NUR ---
Patient awakend coughing. Patient was offered some water and returned to sleep.
--- NOTE | 2021-07-18 04:35 | NUR ---
Patient was assisted to the restroom and back to bed.
[2021-07-18] MEDS ORDERED: naloxone 2mg/2ml inj IV STA (06:03)
[2021-07-18] MEDS ORDERED: naloxone 0.4 mg/ml inj IV ONE (06:03)
--- NOTE | 2021-07-18 06:22 | NUR ---
Nurse attempted to retrieve vitals on patient. Bp registered 55/38 automatic and pulse 44. Vitals rechecked twice with no improvement. Vitals preformed maximilian 60/46 bp and 46 pulse. Patient wouldent respond to name being called. Presents with decresed loc, increased loc with stimuli of iv starts. Dr. park was called and iv saline fluid was started and 4 liters oxygen was given. Ekg was ordered and preformed reading sinus bradycardic. Patient responded to painful stimulation of blood sugar check which read 167. Dr. park ordered narcan and was given iv @ 0610. Patient was able to follow dr commands and awnsered questions appropiately. [facility] 88[facility]45. Patient now alert and responsive per baseline.
[2021-07-18] MEDS ORDERED: normal saline 1000ml 1,000 ML IV ONE (06:25)
--- NOTE | 2021-07-18 07:00 | NUR ---
Pt to CT scan w/ CALIN Sow.
--- NOTE | 2021-07-18 07:15 | NUR ---
Patient lying in bed in mid hampton's position. Pt is monitored by continous tele monitor. Pt is arousable to name, but resting quietly.
--- NOTE | 2021-07-18 07:35 | NUR ---
Lab at bedside.
--- NOTE | 2021-07-18 07:49 | NUR ---
Dr Arevalo was at bedside performing morning assessment. Requested chest x-ray, pt has a wet, productive cough.
[2021-07-18 07:56] LABS: BASOPHILS % (AUTO) 0.9 % (0-1); EOSINOPHILS # (AUTO) 0.2 X10'3 (0-0.9); EOSINOPHILS % (AUTO) 3.1 % (0-6); HEMATOCRIT 28.8 % (35.0-45.0); HEMOGLOBIN 9.6 g/dl (12.0-16.0); LYMPHOCYTES # (AUTO) 0.7 X10'3 (1.1-4.8); LYMPHOCYTES % (AUTO) 13.7 % (21-51); MEAN CORPUSCULAR HEMOGLOBIN 32.6 PG (27.0-31.0); MEAN CORPUSCULAR HGB CONC 33.5 g/dL (33.0-36.5); MEAN CORPUSCULAR VOLUME 97.4 FL (78-98); MEAN PLATELET VOLUME 7.5 FL (7.4-10.4); MONOCYTES # (AUTO) 0.5 X10'3 (0-0.9); MONOCYTES % (AUTO) 9.5 % (2-12); NEUTROPHILS # (AUTO) 3.7 X10'3 (1.8-7.7); NEUTROPHILS % (AUTO) 72.8 % (42-75); PLATELET COUNT 207 X10'3 (140-440); RED BLOOD COUNT 2.95 X10'6 (4.20-5.60); WHITE BLOOD COUNT 5.1 X10'3 (4.5-11.0)
[2021-07-18] MEDS: furosemide 20MG tablet PO SCH ×2 (08:00→18:42)
[2021-07-18] MEDS: diltiazem CD 120mg capsule (once-daily) PO SCH (08:00)
[2021-07-18] MEDS: metoprolol tartrate 50mg tablet PO SCH ×2 (08:00→18:30)
[2021-07-18] MEDS: losartan 50mg tablet PO SCH (08:00)
[2021-07-18] MEDS: budesonide 0.5mg/2ml UD nebule IH SCH ×2 (08:00→21:16)
[2021-07-18] MEDS: docusate sod 100mg capsule PO SCH ×3 (08:00→18:43)
[2021-07-18] MEDS: apixaban 5mg tablet PO SCH ×2 (08:00→18:28)
[2021-07-18] MEDS: tetrahydrozoline 0.05% 15ml ophthalmic drops EACHEYE SCH ×2 (08:00→18:36)
--- NOTE | 2021-07-18 08:03 | NUR ---
X-ray at bedside. Pt is cooperative, but groggy.
[2021-07-18 08:08] LABS: ALANINE AMINOTRANSFERASE 31 U/L (12-78); ALBUMIN 2.4 G/DL (3.4-5.0); ALBUMIN/GLOBULIN RATIO 0.8 (1.1-1.5); ALKALINE PHOSPHATASE 64 IU/L (46-116); ANION GAP 7 (8-16); ASPARTATE AMINO TRANSFERASE 13 U/L (10-37); BILIRUBIN,TOTAL 0.2 MG/DL (0.1-1.0); BLOOD UREA NITROGEN 26 MG/DL (7-18); BUN/CREATININE RATIO 16.1 (6.6-38.0); CALCIUM 8.7 MG/DL (8.5-10.1); CHLORIDE 110 MMOL/L (99-107); CREATININE 1.61 MG/DL (0.40-0.90); GLUCOSE 169 MG/DL (70-104); POTASSIUM 3.8 MMOL/L (3.5-5.1); SODIUM 142 MMOL/L (135-145); TOTAL CARBON DIOXIDE 24.6 MMOL/L (24-32); TOTAL PROTEIN 5.4 G/DL (6.4-8.2); eGFR 31 ML/MIN
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
--- NOTE | 2021-07-18 09:30 | NUR ---
Spoke with Dr. Arevalo - hold all pt's cardiac medications (r/t earlier episode of receiving Narcan.) Recheck vitals q8h and monitor for decompensation. Per Dr. Arevalo chest xray was insignifant and not additional orders received. Will recheck in 2 days. Pt continues to have a productive cough, will repeat CBC to check chemistry. Pt is still eating her breakfast, continually talking to herself or her roommate.
[2021-07-18] MEDS: lamoTRIgine 100mg tablet PO SCH ×2 (09:57→18:30)
[2021-07-18] MEDS: levoFLOXACIN 750MG TABLET PO SCH (09:57)
[2021-07-18] MEDS: famotidine 20mg tablet PO SCH ×2 (09:58→18:30)
[2021-07-18] MEDS: atorvastatin 10mg tablet PO SCH (09:58)
[2021-07-18] MEDS: levoTHYROXINE 25mcg tablet PO SCH (09:58)
[2021-07-18] MEDS: allopurinol 300 MG tablet PO SCH (09:59)
--- NOTE | 2021-07-18 10:30 | NUR ---
Pt took her AM medications after magnetic tape typewriter operator reviewed each medication with her. Pt is tangential and argumentative. Pt presents paranoid as she thinks staff is laughing or talking about her. Pt's second consecutive blood sugar were 167 and 168. Pt refused her insulin, she again became tangential "you have not been giving me my medicine." "You doped me up." Resin Maker educated pt on not taking her insulin "I told you, I'm done, I want out of here." "Why don't you just kick me out!" Dr. Arevalo notified.
--- NOTE | 2021-07-18 10:43 | NUR ---
Pt quietly resting on her bed.
--- NOTE | 2021-07-18 11:58 | NUR ---
Pt quietly lying in bed, respirations unlabored.
--- NOTE | 2021-07-18 12:49 | NUR ---
Pt lying in bed, quietly talking to herself. Pt stated she was cold, warm blanket provided.
--- NOTE | 2021-07-18 13:14 | NUR ---
Pt woke to eat breakfast, immediately saying "I've been peeing and yelling and no one has helped me." "The white people get better treatment then I do." Pt has been sleeping comfortably prior to this. Pt is A&O x4, pt presents with hypomanic behaviors and is just rude. Addendum: 07/18/21 at 1501 by AMELIE Correction: Pt woke to eat lunch.
--- NOTE | 2021-07-18 14:00 | NUR ---
PATIENT NOTED TO BE MAKING CONTINUOUS INAPPROPRIATE COMMENTS TOWARD PATIENT IN NEXT ROOM OVER DESPITE REDIRECTION. STAFF MOVED PATIENT FROM ROOM 21 TO ROOM 22 TO BE SEPERATED FROM NEIGHBOR. DURING THIS TIME PATIENT MADE INAPPROPRIATE COMMENTS TOWARD STAFF, STATING, YOU WHITE BITCHES ALL SMELL LIKE FISH. SHE WAS REDIRECTED HOWEVER CONTINUES TO HARASS AND VERBALLY ABUSE STAFF THROUGHOUT THE DAY.
--- NOTE | 2021-07-18 14:15 | NUR ---
Pt continues to present hypomanic, with rapid speech. Upper Shaper asked if pt needed to use the bathroom pt stated "I am peeing now." Upper Shaper asked pt several times if she wanted to go to the bathroom to clean up. It was difficult to reorient pt as she would overtalk fiction and nonfiction prose writer with overwhelming thoughts and rapid speech. Pt continues with rude and degrading remarks to staff. Addendum: 07/18/21 at 1503 by AMELIE Before lunch blood sugar was 166. PT REFUSED NUTRITIONAL/CORRECTIONAL INSULIN.
[2021-07-18] MEDS ORDERED: normal saline 1000ML IV soln IVB ONE (14:20)
[2021-07-18 15:42] LABS: BASOPHILS # (AUTO) 0.1 X10'3 (0-0.2); EOSINOPHILS # (AUTO) 0.1 X10'3 (0-0.9); EOSINOPHILS % (AUTO) 2.9 % (0-6); HEMATOCRIT 36.3 % (35.0-45.0); HEMOGLOBIN 11.9 g/dl (12.0-16.0); LYMPHOCYTES # (AUTO) 0.8 X10'3 (1.1-4.8); MEAN CORPUSCULAR HEMOGLOBIN 32.3 PG (27.0-31.0); MEAN CORPUSCULAR HGB CONC 32.8 g/dL (33.0-36.5); MEAN CORPUSCULAR VOLUME 98.4 FL (78-98); MEAN PLATELET VOLUME 7.7 FL (7.4-10.4); MONOCYTES # (AUTO) 0.5 X10'3 (0-0.9); MONOCYTES % (AUTO) 9.2 % (2-12); NEUTROPHILS # (AUTO) 3.5 X10'3 (1.8-7.7); NEUTROPHILS % (AUTO) 70.9 % (42-75); PLATELET COUNT 260 X10'3 (140-440); RED BLOOD COUNT 3.69 X10'6 (4.20-5.60)
--- NOTE | 2021-07-18 15:53 | NUR ---
Assisted pt to bathroom to change depends and clean up. Pt ambulates with FWW, gait is steady.
--- NOTE | 2021-07-18 16:36 | NUR ---
Pt out of bathroom, rambling and c/o the she isn't getting the care she needs. Pt was able to dress herself and change her depends/pads. Pt lying in bed receiving IV NS 1000 mL. Rambling and talking. Pt is A&Ox4.
--- NOTE | 2021-07-18 17:18 | NUR ---
Sent page for pt' breathing treatment.
--- NOTE | 2021-07-18 17:55 | NUR ---
Noted increased productive cough with green tinted phlegm. Pt c/o it hurts to take a deep breath and "I feel dizzy." Vitals obtained and WNL. CBC 5.0. Consulted with Dr. Preciado - who assessed pt and found findings WNL. Pt is on Levaquin 750mg day. Pt will receive her maintenance Pulmicort at 1999.
--- NOTE | 2021-07-18 18:45 | NUR ---
Patient sitting on the side of her bed eating her dinner meal.
--- NOTE | 2021-07-18 18:46 | NUR ---
Administered pt's HS medications. Pt refused her Colace r/t loose stool and Lasix.
--- NOTE | 2021-07-18 20:12 | NUR ---
Patient continues to sit on the side of her bed. She has not stopped talking since this nurse assumed care. She denies needs.
[2021-07-18] MEDS: insulin Lispro (HumaLOG) vial - multi-dose SQ SCH (21:31)
--- NOTE | 2021-07-18 22:02 | NUR ---
Patient has finally lay down. She is in supine position with her eyes closed, but she continues to talk to herself non-stop.
--- NOTE | 2021-07-18 23:00 | NUR ---
Patient is lying on her left side. Her eyes are closed, and she appears to be sleeping, she keeps talking to herself, verbalizing her delusions.
--- NOTE | 2021-07-19 00:25 | NUR ---
Patient has got up and went in the bathroom. She was provided toiletries to clean herself, clean scrubs, and her bed linen is changed.
[2021-07-19 01:24] LABS: MEAN PLATELET VOLUME 7.9 FL (7.4-10.4)
[2021-07-19 01:27] LABS: BASOPHILS # (AUTO) 0.1 X10'3 (0-0.2); EOSINOPHILS # (AUTO) 0.1 X10'3 (0-0.9); EOSINOPHILS % (AUTO) 2.8 % (0-6); HEMATOCRIT 30.6 % (35.0-45.0); HEMOGLOBIN 10.5 g/dl (12.0-16.0); LYMPHOCYTES # (AUTO) 0.7 X10'3 (1.1-4.8); LYMPHOCYTES % (AUTO) 13.7 % (21-51); MEAN CORPUSCULAR HEMOGLOBIN 33.3 PG (27.0-31.0); MEAN CORPUSCULAR HGB CONC 34.3 g/dL (33.0-36.5); MONOCYTES # (AUTO) 0.5 X10'3 (0-0.9); MONOCYTES % (AUTO) 10.3 % (2-12); NEUTROPHILS # (AUTO) 3.6 X10'3 (1.8-7.7); NEUTROPHILS % (AUTO) 72.2 % (42-75); PLATELET COUNT 224 X10'3 (140-440); RED BLOOD COUNT 3.15 X10'6 (4.20-5.60); RED CELL DISTRIBUTION WIDTH 15.1 % (11.5-14.5)
--- NOTE | 2021-07-19 01:35 | NUR ---
The patient has finally extricated herself from the bathroom, and is back to sitting on the side of her bed.
[2021-07-19 01:38] LABS: ALANINE AMINOTRANSFERASE 40 U/L (12-78); ALBUMIN 2.6 G/DL (3.4-5.0); ALBUMIN/GLOBULIN RATIO 0.8 (1.1-1.5); ALKALINE PHOSPHATASE 74 IU/L (46-116); ANION GAP 8 (8-16); ASPARTATE AMINO TRANSFERASE 18 U/L (10-37); BILIRUBIN,TOTAL 0.2 MG/DL (0.1-1.0); BLOOD UREA NITROGEN 21 MG/DL (7-18); BUN/CREATININE RATIO 21.6 (6.6-38.0); CALCIUM 9.1 MG/DL (8.5-10.1); CHLORIDE 110 MMOL/L (99-107); CREATININE 0.97 MG/DL (0.40-0.90); GLUCOSE 225 MG/DL (70-104); POTASSIUM 4.2 MMOL/L (3.5-5.1); SODIUM 143 MMOL/L (135-145); TOTAL CARBON DIOXIDE 24.7 MMOL/L (24-32); TOTAL PROTEIN 5.8 G/DL (6.4-8.2); eGFR 56 ML/MIN
--- NOTE | 2021-07-19 04:14 | NUR ---
Patient sitting on the edge of her bed. She is still talking to herself, in between making rediculous demands and baseless accusations.
--- NOTE | 2021-07-19 05:32 | NUR ---
Patient sits on the edge of her bed spouting racist language, foul language and baseless claims. She has not stopped talking all night.
--- NOTE | 2021-07-19 06:30 | NUR ---
Received pt. awake in bed talking aloud to herself non-stop in a disorganized manner. Pt. appears to be manic and requires frequent redirection. She makes frequent delusional statements and accusations against staff, requiring redirection. Will continue to monitor.
--- NOTE | 2021-07-19 07:30 | NUR ---
Received pt. awake and talking non-stop at the beginning of the shift in what appeared to be a mainic and disorganized way. Pt. requires frequet redirection to lower her voice and return to her room as she tends to wander the unit going into other's rooms. Pt. also makes frequent vulgar and inappropriate statements requiring redirection. Pt. is also agitated and accusitory towards staff, states, "I'm calling [employer] to eloy you all!"
[2021-07-19] MEDS: budesonide 0.5mg/2ml UD nebule IH SCH ×2 (08:00→17:10)
[2021-07-19] MEDS: levoTHYROXINE 25mcg tablet PO SCH (08:31)
[2021-07-19] MEDS: diphenhydrAMINE 25mg capsule PO PRN (08:31)
[2021-07-19] MEDS: famotidine 20mg tablet PO SCH ×2 (09:13→19:30)
[2021-07-19] MEDS: losartan 50mg tablet PO SCH (09:14)
[2021-07-19] MEDS: lamoTRIgine 100mg tablet PO SCH ×2 (09:14→19:30)
[2021-07-19] MEDS: allopurinol 300 MG tablet PO SCH (09:14)
[2021-07-19] MEDS: metoprolol tartrate 50mg tablet PO SCH ×2 (09:14→19:30)
[2021-07-19] MEDS: apixaban 5mg tablet PO SCH ×2 (09:14→19:30)
[2021-07-19] MEDS: tetrahydrozoline 0.05% 15ml ophthalmic drops EACHEYE SCH ×2 (09:15→19:49)
[2021-07-19] MEDS: diltiazem CD 120mg capsule (once-daily) PO SCH (09:15)
[2021-07-19] MEDS: furosemide 20MG tablet PO SCH ×2 (09:15→19:30)
[2021-07-19] MEDS: insulin Lispro (HumaLOG) vial - multi-dose SQ SCH ×2 (09:21→19:43)
[2021-07-19] MEDS ORDERED: OLANZapine **IM** 10 mg inj. IM ONE (09:30)
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
[2021-07-19] MEDS: levoFLOXACIN 750MG TABLET PO SCH (11:25)
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
--- NOTE | 2021-07-19 13:09 | NUR ---
Pt. up to use the BR, able to ambulate independently with use of FWW. This typewriter repairer provided assistance to pt. in order to change her clothing and bedsheets r/t fall precautions. She is now sitting up in bed eating.
--- NOTE | 2021-07-19 14:05 | NUR ---
Pt. did not require any Humalog Insulin at lunch. She remains at Level II on Diabetic Protocol.
--- NOTE | 2021-07-19 14:36 | NUR ---
Pt. is sitting quietly in bed at this time, she is applying lotion to her legs. Will continue to monitor.
--- NOTE | 2021-07-19 15:15 | NUR ---
Pt. sleeping at this time, laying in bed on left side, rr even and unlabored. Will continue to monitor.
--- NOTE | 2021-07-19 16:45 | NUR ---
Pt. up to use the BR at this time, able to do so independently with use of FWW. Staff continue to monitor closely r/t fall precautions.
--- NOTE | 2021-07-19 17:07 | NUR ---
Pt. receiving ordered breathing tx at this time per request, as she had declined ordered treatment this AM.
--- NOTE | 2021-07-19 17:41 | NUR ---
Pt. continues to lay in bed at this time, rr even and unlabored. Obtained blood glucose and was 183. Per RT and pt., pt. uses an Albuterol Inhaler at home. Obtained orders from Dr. Hunt for Albuterol Q4 PRN per recommendation of RT.
--- NOTE | 2021-07-19 19:02 | NUR ---
The patient is sitting on the side of her bed talking nonstop to no one in particular and making paranoid and delusional statements.
--- NOTE | 2021-07-19 19:13 | NUR ---
Discussed the patient history and current presentation with MD and orders received
[2021-07-19] MEDS ORDERED: diphenhydrAMINE 25mg capsule PO ONE (19:15)
[2021-07-19] MEDS ORDERED: olanzapine 10mg tablet PO ONE (19:15)
[2021-07-19] MEDS: docusate sod 100mg capsule PO SCH (19:30)
[2021-07-19] MEDS: atorvastatin 10mg tablet PO SCH (19:49)
--- NOTE | 2021-07-19 20:22 | NUR ---
The patient did take her evening medications but currently is talking nonstop.
--- NOTE | 2021-07-19 20:37 | NUR ---
HS blood sugar 150. She is level two no coverage given
--- NOTE | 2021-07-19 21:39 | NUR ---
remains awake and talking nonstop to herself.
--- NOTE | 2021-07-19 23:27 | NUR ---
The patient appears to be sleeping but restless at times. Awakens easily but falls back asleep
--- NOTE | 2021-07-20 01:28 | NUR ---
The patient appears to be sleeping
--- NOTE | 2021-07-20 03:05 | NUR ---
THe patient appears to be sleeping
--- NOTE | 2021-07-20 05:44 | NUR ---
The patient appears to be sleeping
--- NOTE | 2021-07-20 06:30 | NUR ---
Pt is lying in bed, appears to be sleeping.
[2021-07-20] MEDS: furosemide 20MG tablet PO SCH ×3 (08:00→20:09)
[2021-07-20] MEDS: tetrahydrozoline 0.05% 15ml ophthalmic drops EACHEYE SCH ×2 (08:00→20:08)
[2021-07-20] MEDS: famotidine 20mg tablet PO SCH ×3 (08:00→20:09)
[2021-07-20] MEDS: losartan 50mg tablet PO SCH ×2 (08:00→10:28)
[2021-07-20] MEDS: apixaban 5mg tablet PO SCH ×3 (08:00→20:09)
[2021-07-20] MEDS: metoprolol tartrate 50mg tablet PO SCH ×3 (08:00→20:10)
[2021-07-20] MEDS: lamoTRIgine 100mg tablet PO SCH ×3 (08:00→20:09)
[2021-07-20] MEDS: docusate sod 100mg capsule PO SCH ×2 (08:00→20:00)
[2021-07-20] MEDS: levoTHYROXINE 25mcg tablet PO SCH ×2 (08:00→10:29)
[2021-07-20] MEDS: diltiazem CD 120mg capsule (once-daily) PO SCH ×2 (08:00→10:26)
[2021-07-20] MEDS: allopurinol 300 MG tablet PO SCH ×2 (08:00→10:30)
--- NOTE | 2021-07-20 08:30 | NUR ---
Pt is lying in bed, still appears to be sleeping.
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
--- NOTE | 2021-07-20 09:30 | NUR ---
Minh valverde in [facility] - 07/20/21 at 1137 by PURNIMA Held pt's Humalog as pt thus far has refused to eat. FS
--- NOTE | 2021-07-20 09:30 | NUR ---
Held pt's Humalog this morning as pt thus far has refused to eat. Her FS BG this am was 166.
[2021-07-20] MEDS: albuterol 2.5 MG/3 ML nebule NEB PRN (09:35)
[2021-07-20] MEDS: budesonide 0.5mg/2ml UD nebule IH SCH ×2 (09:36→20:00)
[2021-07-20] MEDS: levoFLOXACIN 750MG TABLET PO SCH (10:32)
[2021-07-20 11:01] LABS: BASOPHILS % (AUTO) 0.6 % (0-1); EOSINOPHILS # (AUTO) 0.1 X10'3 (0-0.9); EOSINOPHILS % (AUTO) 1.6 % (0-6); HEMATOCRIT 36.3 % (35.0-45.0); HEMOGLOBIN 12.2 g/dl (12.0-16.0); LYMPHOCYTES # (AUTO) 1.1 X10'3 (1.1-4.8); LYMPHOCYTES % (AUTO) 14.2 % (21-51); MEAN CORPUSCULAR HEMOGLOBIN 32.6 PG (27.0-31.0); MEAN CORPUSCULAR HGB CONC 33.5 g/dL (33.0-36.5); MEAN CORPUSCULAR VOLUME 97.4 FL (78-98); MEAN PLATELET VOLUME 7.4 FL (7.4-10.4); MONOCYTES # (AUTO) 0.6 X10'3 (0-0.9); MONOCYTES % (AUTO) 7.1 % (2-12); NEUTROPHILS % (AUTO) 76.5 % (42-75); PLATELET COUNT 280 X10'3 (140-440); RED BLOOD COUNT 3.73 X10'6 (4.20-5.60); RED CELL DISTRIBUTION WIDTH 15.2 % (11.5-14.5); WHITE BLOOD COUNT 7.9 X10'3 (4.5-11.0)
--- NOTE | 2021-07-20 11:11 | NUR ---
Pt is sitting on the side of her bed talking to herself/ranting about the staff and the state of the world.
[2021-07-20 11:14] LABS: ALANINE AMINOTRANSFERASE 34 U/L (12-78); ALBUMIN 3.3 G/DL (3.4-5.0); ALBUMIN/GLOBULIN RATIO 0.9 (1.1-1.5); ALKALINE PHOSPHATASE 82 IU/L (46-116); ANION GAP 8 (8-16); ASPARTATE AMINO TRANSFERASE 17 U/L (10-37); BILIRUBIN,TOTAL 0.4 MG/DL (0.1-1.0); BLOOD UREA NITROGEN 26 MG/DL (7-18); BUN/CREATININE RATIO 23.6 (6.6-38.0); CALCIUM 9.8 MG/DL (8.5-10.1); CHLORIDE 105 MMOL/L (99-107); GLUCOSE 190 MG/DL (70-104); SODIUM 141 MMOL/L (135-145); TOTAL CARBON DIOXIDE 27.9 MMOL/L (24-32); TOTAL PROTEIN 6.9 G/DL (6.4-8.2); eGFR 49 ML/MIN
--- NOTE | 2021-07-20 11:38 | NUR ---
APS is here speaking with the patient.
--- NOTE | 2021-07-20 12:13 | NUR ---
Pt refused to allow her blood sugar to be checked before lunch. Addendum: 07/20/21 at 1714 by PURNIMA Pt adamant that this RN already checked her blood sugar before lunch and demanded to know what the reading was. Reality orientation provided that her blood sugar was checked before breakfast. Reality orientation ineffective.
--- NOTE | 2021-07-20 13:43 | NUR ---
Pt is sitting on her walker in the [place]alles in front of the nurse's station conversing with another female patient.
--- NOTE | 2021-07-20 14:36 | NUR ---
[facility] at bedside reassessing patient.
--- NOTE | 2021-07-20 16:33 | NUR ---
Pt ambulated to the bathroom with her 4W walker and then back to her room. Pt has not stopped talking all shift.
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
--- NOTE | 2021-07-20 17:39 | NUR ---
Pt refused to have her blood sugar checked before dinner, showing this nurse the bruises she has on every finger, stating our lancets hurt.
--- NOTE | 2021-07-20 18:38 | NUR ---
The patient is very hyperverbal with tangential thought process. She is argumentative. She is uncooperative with nursing interventions. She is refusing accuchecks. She is not wanting any medications for her tristen except lamictal. She is alert and oriented. She is very irritable and paranoid of staff. She does not stop talking for more than 15 secounds at any one time.
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
--- NOTE | 2021-07-20 19:13 | NUR ---
The patient is yelling at the staff "you fucking bitches!" She is very tangential.
--- NOTE | 2021-07-20 19:18 | NUR ---
The patient continues to be yelling nonstop. Stated, "I'm not taking any more medications! You guys are even putting it in my liquid!"
[2021-07-20] MEDS: atorvastatin 10mg tablet PO SCH (20:08)
[2021-07-20] MEDS: HYDROcodone/acetaminophen 10/325mg tab PO PRN (20:09)
[2021-07-20] MEDS: diphenhydrAMINE 25mg capsule PO PRN (20:09)
--- NOTE | 2021-07-20 20:20 | NUR ---
The patient continues to be agitated and suspicious of staff. She is very hyperverbal. She did take her evening medications but she was very suspicious and had to see each med packet opened up.
[2021-07-20] MEDS: insulin Lispro (HumaLOG) vial - multi-dose SQ SCH (20:53)
--- NOTE | 2021-07-20 21:06 | NUR ---
The patient is wandering around by her bed. She continues hyperverbal. Her mood is very labile. She is refusing any PRN medications except benadryl.
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
[2021-07-21] MEDS ORDERED: OLANZapine **IM** 10 mg inj. IM ONE (00:30)
--- NOTE | 2021-07-21 00:38 | NUR ---
The patient increasingly agitated towards staff and discussed with MD and orders received. IM Zyprexa 10mg given
--- NOTE | 2021-07-21 01:13 | NUR ---
The patient continues to be agitated and manic. She is hyperverbal and labile.
--- NOTE | 2021-07-21 02:01 | NUR ---
The patient continues to yell at staff from her bed. She is labile. She is cursing staff and then begans to talk about things from her past.
--- NOTE | 2021-07-21 04:01 | NUR ---
The patient has just fallen asleep
--- NOTE | 2021-07-21 05:53 | NUR ---
The patient appears to be sleeping
--- NOTE | 2021-07-21 07:00 | NUR ---
Pt remains lying quietly in bed without signs of distress. Appears to be sleeping.
[2021-07-21] MEDS: budesonide 0.5mg/2ml UD nebule IH SCH ×2 (08:00→20:00)
[2021-07-21] MEDS: docusate sod 100mg capsule PO SCH ×2 (08:00→20:24)
--- NOTE | 2021-07-21 09:00 | NUR ---
Pt cooperative with vital signs and blood glucose. Pt currently up to the bathroom. Pt ambulating with four wheel walker.
[2021-07-21] MEDS: furosemide 20MG tablet PO SCH ×2 (09:05→20:24)
[2021-07-21] MEDS: tetrahydrozoline 0.05% 15ml ophthalmic drops EACHEYE SCH ×2 (09:05→20:24)
[2021-07-21] MEDS: lamoTRIgine 100mg tablet PO SCH ×2 (09:05→20:24)
[2021-07-21] MEDS: allopurinol 300 MG tablet PO SCH (09:05)
[2021-07-21] MEDS: metoprolol tartrate 50mg tablet PO SCH ×2 (09:06→20:23)
[2021-07-21] MEDS: levoTHYROXINE 25mcg tablet PO SCH (09:06)
[2021-07-21] MEDS: famotidine 20mg tablet PO SCH ×2 (09:06→20:23)
[2021-07-21] MEDS: diltiazem CD 120mg capsule (once-daily) PO SCH (09:07)
[2021-07-21] MEDS: losartan 50mg tablet PO SCH (09:07)
[2021-07-21] MEDS: apixaban 5mg tablet PO SCH ×2 (09:09→20:24)
--- NOTE | 2021-07-21 11:00 | NUR ---
Pt talking almost nonstop to herself.
[2021-07-21] MEDS: insulin Lispro (HumaLOG) vial - multi-dose SQ SCH ×3 (11:28→20:17)
[2021-07-21] MEDS: levoFLOXACIN 750MG TABLET PO SCH (11:39)
--- NOTE | 2021-07-21 13:00 | NUR ---
Pt continues to talk almost incessantly. Pt bx remains appropriate.
--- NOTE | 2021-07-21 15:00 | NUR ---
Pt ate lunch very slowly and was cooperative with the insulin coverage. Pt continues to talk nonstop.
--- NOTE | 2021-07-21 16:15 | NUR ---
Full bed linen change completed.
--- NOTE | 2021-07-21 17:00 | NUR ---
Pt continues to be hyperverbal but in behavioral control.
--- NOTE | 2021-07-21 18:29 | NUR ---
Patient is awake, sitting at bedside. She eats her dinner. Ambulatory to bathroom too with walker. No distress.
--- NOTE | 2021-07-21 19:37 | NUR ---
Patient finishes her dinner. Speech is tangential, patient presents as hypo manic. She states she hates most women but likes the tech on [employer]. This pattern chart writer is ok in her book too. So far.
[2021-07-21] MEDS: atorvastatin 10mg tablet PO SCH (21:21)
--- NOTE | 2021-07-21 21:37 | NUR ---
Patient ambulates and socializes, some redirection required. Patient remains hypomanic and tangential. She is cooperative with this aligner typewriter.
[2021-07-21] MEDS: albuterol 2.5 MG/3 ML nebule NEB PRN (21:46)
[2021-07-21] MEDS: HYDROcodone/acetaminophen 10/325mg tab PO PRN (22:56)
[2021-07-21] MEDS ORDERED: Melatonin 3mg tablet PO ONE (23:10)
--- NOTE | 2021-07-21 23:29 | NUR ---
Patient is sitting up in bed. No distress. Her hyperverbal speech has decreased. Patient has had a [place] 10 for her pain. Mellatonin 6 mg was given as a sleep aid.
--- NOTE | 2021-07-22 01:07 | NUR ---
Patient is asleep, low fowlers position in bed. No distress.
--- NOTE | 2021-07-22 02:25 | NUR ---
Patient is sleeping quietly, bed in mid fowlers position, patient is on her left side.
--- NOTE | 2021-07-22 05:43 | NUR ---
Patient sleeping quietly.
--- NOTE | 2021-07-22 07:00 | NUR ---
patient moved to bed 12.uses walker independently.We will monitor.
--- NOTE | 2021-07-22 07:08 | NUR ---
RN noted from [facility] bg was 69mg/dl dated 07/21 at 1800- patient was level 2 on glycemic protocol,will move back one level since bg is below 80mg/dl(per protocol).We will monitor.
[2021-07-22] MEDS: furosemide 20MG tablet PO SCH ×2 (08:00→20:55)
[2021-07-22] MEDS: metoprolol tartrate 50mg tablet PO SCH ×2 (08:00→20:54)
[2021-07-22] MEDS: docusate sod 100mg capsule PO SCH ×2 (08:00→20:54)
[2021-07-22] MEDS: losartan 50mg tablet PO SCH (08:00)
[2021-07-22] MEDS: diltiazem CD 120mg capsule (once-daily) PO SCH (08:00)
[2021-07-22] MEDS: apixaban 5mg tablet PO SCH ×2 (08:42→20:54)
[2021-07-22] MEDS: allopurinol 300 MG tablet PO SCH (08:43)
[2021-07-22] MEDS: famotidine 20mg tablet PO SCH ×2 (08:43→20:55)
[2021-07-22] MEDS: levoTHYROXINE 25mcg tablet PO SCH (08:43)
[2021-07-22] MEDS: lamoTRIgine 100mg tablet PO SCH ×2 (08:53→20:54)
[2021-07-22] MEDS: tetrahydrozoline 0.05% 15ml ophthalmic drops EACHEYE SCH ×2 (09:28→23:07)
--- NOTE | 2021-07-22 09:39 | NUR ---
patient eating breakfast.BP meds held,bp borderline.
[2021-07-22] MEDS: albuterol 2.5 MG/3 ML nebule NEB PRN (10:46)
[2021-07-22] MEDS: budesonide 0.5mg/2ml UD nebule IH SCH ×2 (10:46→23:07)
[2021-07-22] MEDS: levoFLOXACIN 750MG TABLET PO SCH (11:00)
--- NOTE | 2021-07-22 12:18 | NUR ---
patient in the room awake.
[2021-07-22] MEDS: insulin Lispro (HumaLOG) vial - multi-dose SQ SCH (14:25)
--- NOTE | 2021-07-22 15:00 | NUR ---
patient in the room cleaning her dentures.
--- NOTE | 2021-07-22 17:47 | NUR ---
patient in the room awake.
--- NOTE | 2021-07-22 19:00 | NUR ---
The patient is talking nonstop. She is angry with staff. States she doesn't like white women. She is tangential and manic.
[2021-07-22] MEDS: atorvastatin 10mg tablet PO SCH (20:54)
[2021-07-22] MEDS: Melatonin 3mg tablet PO SCH (20:55)
--- NOTE | 2021-07-22 20:58 | NUR ---
The patient is in the bathroom talking loudly and nonstop to herself.
--- NOTE | 2021-07-22 22:54 | NUR ---
pt ambulated out of room using walker and started shouting at staff. pt yelled "im diabetic" when informed pt of policy to stay in room. pt started shoulting profanities at staff and is currently sitting on bed and talking to self. pt states "im going to eloy you, you bitch". consulted dr pulido regarding pt behavior. she stated to give medications on emar IM. will gather additional staff to stand by for medical records technician.
[2021-07-22] MEDS: HYDROcodone/acetaminophen 10/325mg tab PO PRN (23:20)
[2021-07-22] MEDS: diphenhydrAMINE 25mg capsule PO PRN (23:20)
--- NOTE | 2021-07-22 23:21 | NUR ---
KAY LAYTON ASSSITED WITH TALKING TO PT REGARDING MEDICATION ADMIN. PT STATED SHE WOULD BE WILLING TO TAKE BANADRYL AND NORCO FROM KAY LAYTON BUT NOT A "WHITE FEMALE NURSE". PT ALSO REQUESTED A SANDWICH, SANDWICH GIVEN. KAY LAYTON TO ASSIST WITH TAKING HS ACCUCHECK.
--- NOTE | 2021-07-23 00:09 | NUR ---
pt sitting at side of bed talking nonstop. pt remains hypomanic and tangential.
--- NOTE | 2021-07-23 01:15 | NUR ---
pt ambulated to nursing station with walker requesting to use restroom, tech walked with pt to rest room. pt no longer talking to self. after using rest room, pt sitting in chair at side of bed mumbling to self.
--- NOTE | 2021-07-23 01:43 | NUR ---
pt walked to nursing station requesting new socks and "bipolar meds". gave pt socks and redirected back to room. notified pt that she recieved it at 2053 and it is not due again until 08. pt began yelling at editorial writer and began talking nonstop again to self. pt currently sitting in chair in room talking to self remains tangential and hypomanic.
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
--- NOTE | 2021-07-23 05:31 | NUR ---
pt resting on right side with eyes closed. equal chest rise and fall, no s/s of distress.
--- NOTE | 2021-07-23 06:05 | NUR ---
pt resting on left side in bed with eyes closed. equal chest rise and fall seen. no s/s of distress noted.
--- NOTE | 2021-07-23 06:36 | NUR ---
Report received from CALIN Olivera.
[2021-07-23] MEDS: tetrahydrozoline 0.05% 15ml ophthalmic drops EACHEYE SCH ×2 (08:00→20:00)
[2021-07-23] MEDS: budesonide 0.5mg/2ml UD nebule IH SCH ×2 (08:00→20:00)
--- NOTE | 2021-07-23 11:00 | NUR ---
Patient awake and given reheated breakfast tray.
[2021-07-23] MEDS: levoTHYROXINE 25mcg tablet PO SCH (11:30)
[2021-07-23] MEDS: famotidine 20mg tablet PO SCH ×2 (11:30→20:00)
[2021-07-23] MEDS: losartan 50mg tablet PO SCH (12:00)
[2021-07-23] MEDS: apixaban 5mg tablet PO SCH ×2 (12:00→20:00)
[2021-07-23] MEDS: docusate sod 100mg capsule PO SCH ×2 (12:00→20:00)
[2021-07-23] MEDS: diltiazem CD 120mg capsule (once-daily) PO SCH (12:00)
[2021-07-23] MEDS: lamoTRIgine 100mg tablet PO SCH ×2 (12:00→20:00)
[2021-07-23] MEDS: furosemide 20MG tablet PO SCH ×2 (12:00→20:00)
[2021-07-23] MEDS: allopurinol 300 MG tablet PO SCH (12:00)
[2021-07-23] MEDS: metoprolol tartrate 50mg tablet PO SCH ×2 (12:00→20:00)
[2021-07-23] MEDS: levoFLOXACIN 750MG TABLET PO SCH (12:00)
--- NOTE | 2021-07-23 13:00 | NUR ---
Patient given warm body wipes per request and sanitary pads with adult diaper.
--- NOTE | 2021-07-23 13:11 | NUR ---
Patient cleaned herself of incontinence; bed cleaned and linens changed; patient given clean scrubs.
--- NOTE | 2021-07-23 13:59 | NUR ---
Patient on bedside commode; declines assistance; call light within reach.
[2021-07-23] MEDS: oxybutynin 5mg tablet PO SCH ×2 (14:35→20:35)
[2021-07-23] MEDS: insulin Lispro (HumaLOG) vial - multi-dose SQ SCH (18:22)
--- NOTE | 2021-07-23 20:17 | NUR ---
PATIENT YELLING AT STAFF, CURSING, COMING OUT OF ROOM REPEATEDLY. VERBALLY THREATENING. PATIENT UNABLE TO FOLLOW DIRECTIONS WALKING INTO ER HALLWAY, REFUSING TO WEAR MASK. PATIENT UNABLE TO BE VERBALLY REDIRECTED. ASSISTED TO BED AND MEDICATED FOR AGITATION PER ORDER AT THIS TIME
[2021-07-23] MEDS: atorvastatin 10mg tablet PO SCH (20:36)
[2021-07-23] MEDS ORDERED: LORazepam 2 mg/ml vial IM ONE (20:50)
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
[2021-07-23] MEDS: Melatonin 3mg tablet PO SCH (22:26)
[2021-07-24] MEDS: furosemide 20MG tablet PO SCH ×2 (08:00→21:40)
[2021-07-24] MEDS: diltiazem CD 120mg capsule (once-daily) PO SCH (08:00)
[2021-07-24] MEDS: tetrahydrozoline 0.05% 15ml ophthalmic drops EACHEYE SCH (08:00)
[2021-07-24] MEDS: lamoTRIgine 100mg tablet PO SCH ×2 (08:00→21:40)
[2021-07-24] MEDS: oxybutynin 5mg tablet PO SCH ×3 (08:00→21:41)
[2021-07-24] MEDS: allopurinol 300 MG tablet PO SCH (08:00)
[2021-07-24] MEDS: docusate sod 100mg capsule PO SCH ×2 (08:00→21:42)
[2021-07-24] MEDS: metoprolol tartrate 50mg tablet PO SCH ×2 (08:00→20:00)
[2021-07-24] MEDS: budesonide 0.5mg/2ml UD nebule IH SCH ×2 (08:00→20:00)
[2021-07-24] MEDS: losartan 50mg tablet PO SCH ×2 (08:00→13:18)
[2021-07-24] MEDS: levoTHYROXINE 25mcg tablet PO SCH (13:11)
[2021-07-24] MEDS: famotidine 20mg tablet PO SCH ×2 (13:11→20:00)
[2021-07-24] MEDS: apixaban 5mg tablet PO SCH ×2 (13:17→21:39)
--- NOTE | 2021-07-24 19:00 | NUR ---
PT SITTING ON BEDSIDE COMMODE, REFUSING TO GET BACK INTO BED. PT YELLING CURSING AT STAFF CALLING INAPPROPRIATE NAMES AND DEROGITORY COMMENTS. PT UNKEPT APPEARANCE AND DEMANDING ITEMS FROM STAFF. PT REFUSING TO ALLOW VITAL SIGNS AT THIS TIME. ROOM SECURED FOR SAFETY WITH CORDS AND REMOVABLE OBJECTS OUT OF THE ROOM. PT HAS TECH SITTING BY PT FOR SAFETY PURPOSED.
[2021-07-24] MEDS: Melatonin 3mg tablet PO SCH (21:40)
[2021-07-24] MEDS: diphenhydrAMINE 25mg capsule PO PRN (21:40)
[2021-07-24] MEDS: atorvastatin 10mg tablet PO SCH (21:41)
--- NOTE | 2021-07-25 06:52 | NUR ---
Patient ambulatory with walker, steady gait with van Dickens RN, from Main bed 6. Patient moved to ED OF bed 27. Patient in bed talking to herself quietly. Continue to monitor.
[2021-07-25] MEDS: furosemide 20MG tablet PO SCH ×2 (07:32→09:55)
[2021-07-25] MEDS: levoTHYROXINE 25mcg tablet PO SCH (07:32)
[2021-07-25] MEDS: budesonide 0.5mg/2ml UD nebule IH SCH (08:00)
[2021-07-25] MEDS: docusate sod 100mg capsule PO SCH ×2 (08:00→20:00)
[2021-07-25] MEDS: tetrahydrozoline 0.05% 15ml ophthalmic drops EACHEYE SCH ×3 (08:00→20:59)
--- NOTE | 2021-07-25 08:25 | NUR ---
Patient eating very slowly. Patient chatting with JIGNESH Mcmahan. No distress observed. Continue to monitor.
[2021-07-25] MEDS: famotidine 20mg tablet PO SCH ×2 (08:30→20:53)
[2021-07-25] MEDS: allopurinol 300 MG tablet PO SCH (09:48)
[2021-07-25] MEDS: apixaban 5mg tablet PO SCH ×2 (09:55→20:57)
[2021-07-25] MEDS: lamoTRIgine 100mg tablet PO SCH ×2 (09:55→20:57)
[2021-07-25] MEDS: losartan 50mg tablet PO SCH (09:56)
[2021-07-25] MEDS: oxybutynin 5mg tablet PO SCH ×3 (09:58→20:55)
[2021-07-25] MEDS: diltiazem CD 120mg capsule (once-daily) PO SCH (09:59)
[2021-07-25] MEDS: metoprolol tartrate 50mg tablet PO SCH ×2 (10:00→21:00)
--- NOTE | 2021-07-25 10:19 | NUR ---
Patient talking to herself a little louder than when she first came over to ED OF. Patient gets agitated very easily. Continue to monitor.
--- NOTE | 2021-07-25 11:11 | NUR ---
Patient moved from ED OF 27 to ED OF 21. No distress observed. Continue to monitor.
--- NOTE | 2021-07-25 11:33 | NUR ---
Patient continues to speak non-stop. Patient accusing staff of being racist against Asians. RN explains to patient that none of us are prejudice. Patient states every white person in [facility] are racist. Patient goes on and on and on. Continue to monitor.
--- NOTE | 2021-07-25 12:14 | NUR ---
Patient speaking with JIGNESH Cortez. Patient being obstinate. Continue to monitor.
--- NOTE | 2021-07-25 12:20 | NUR ---
Patient dismisses Dana EGAN.
--- NOTE | 2021-07-25 12:40 | NUR ---
Patient eating lunch. No distress observed. Continue to monitor.
--- NOTE | 2021-07-25 13:48 | NUR ---
Patient sleeping on left side. No distress observed. Continue to monitor.
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
[2021-07-25] MEDS: ferrous sulfate 325mg tablet PO SCH (20:54)
[2021-07-25] MEDS: Melatonin 3mg tablet PO SCH (20:57)
[2021-07-25] MEDS: atorvastatin 10mg tablet PO SCH (20:58)
--- NOTE | 2021-07-25 23:02 | NUR ---
The patient up to use the bathroom and is now back in bed
--- NOTE | 2021-07-26 01:09 | NUR ---
The patient appears to be sleeping
--- NOTE | 2021-07-26 03:01 | NUR ---
The patient is awake and using the bathroom.
--- NOTE | 2021-07-26 04:44 | NUR ---
THe patient is awake and using the bathroom
--- NOTE | 2021-07-26 06:36 | NUR ---
Patient up and writing down all the things she thinks she needs to give to the RN. Continue to monitor.
[2021-07-26] MEDS: levoTHYROXINE 25mcg tablet PO SCH (07:39)
[2021-07-26] MEDS: budesonide 0.5mg/2ml UD nebule IH SCH ×2 (08:00→20:00)
--- NOTE | 2021-07-26 08:40 | NUR ---
Patient eating breakfast. Patient agitated with almost every staff member. Continue to monitor.
[2021-07-26] MEDS: diltiazem CD 120mg capsule (once-daily) PO SCH (08:46)
[2021-07-26] MEDS: apixaban 5mg tablet PO SCH ×2 (08:46→20:33)
[2021-07-26] MEDS: oxybutynin 5mg tablet PO SCH ×3 (08:46→20:34)
[2021-07-26] MEDS: losartan 50mg tablet PO SCH (08:48)
[2021-07-26] MEDS: metoprolol tartrate 50mg tablet PO SCH ×2 (08:48→20:00)
[2021-07-26] MEDS: ferrous sulfate 325mg tablet PO SCH ×2 (08:49→20:33)
[2021-07-26] MEDS: allopurinol 300 MG tablet PO SCH (08:49)
[2021-07-26] MEDS: lamoTRIgine 100mg tablet PO SCH ×2 (08:49→20:33)
[2021-07-26] MEDS: furosemide 20MG tablet PO SCH ×2 (08:49→20:34)
[2021-07-26] MEDS: famotidine 20mg tablet PO SCH ×2 (08:50→20:32)
[2021-07-26] MEDS: docusate sod 100mg capsule PO SCH ×2 (08:50→20:32)
[2021-07-26] MEDS: tetrahydrozoline 0.05% 15ml ophthalmic drops EACHEYE SCH ×2 (08:51→20:35)
--- NOTE | 2021-07-26 09:10 | NUR ---
Ramirez EGAN, speaking with patient. Patient is getting upset. Continue to monitor.
--- NOTE | 2021-07-26 11:05 | NUR ---
Patient eating a snack. No distress observed. Continue to monitor.
--- NOTE | 2021-07-26 12:22 | NUR ---
Patient eating lunch. No distress observed. Continue to monitor.
--- NOTE | 2021-07-26 14:07 | NUR ---
Patient talking a lot and gets agitated easily. Continue to monitor.
--- NOTE | 2021-07-26 16:05 | NUR ---
Patient sleeping. No distress observed. Continue to monitor.
[2021-07-26 17:32] LABS: CLARITY,URINE CLEAR (Clear); COLOR,URINE YELLOW (Yellow); GLUCOSE, URINE 250 mg/dl (Neg); KETONES,URINE NEGATIVE (Neg); LEUKOCYTE ESTERASE ,URINE NEGATIVE (Neg); NITRITES, URINE NEGATIVE (Neg); OCCULT BLOOD,URINE NEGATIVE (Neg); PH,URINE 5.5 (4.8-8.0); PROTEIN,URINE NEGATIVE (Neg); UROBILINOGEN,URINE 0.2 E.U/dL (0.2-1.0)
--- NOTE | 2021-07-26 17:32 | NUR ---
Patient gave a clean catch because patient thought she might have a UTI. Urine sent to lab. Continue to monitor.
[2021-07-26 17:36] LABS: UA COLLECTION TYPE CLN CATCH MIDSTREAM
[2021-07-26] MEDS: atorvastatin 10mg tablet PO SCH (20:34)
[2021-07-26] MEDS: Melatonin 3mg tablet PO SCH (20:35)
--- NOTE | 2021-07-26 20:44 | NUR ---
Pt took all medications w/o complications. BS @2029 189. no previous BS taken. Metoprolol held due pulse being 57.
[2021-07-26] MEDS: insulin Lispro (HumaLOG) vial - multi-dose SQ SCH (22:36)
--- NOTE | 2021-07-27 01:08 | NUR ---
Pt got up and used the restroom, went back to bed. All needs have been met at this time.
--- NOTE | 2021-07-27 02:57 | NUR ---
Pt sleeping on left side in bed.
--- NOTE | 2021-07-27 05:03 | NUR ---
Pt sleeping on right side, extra blanket given.
--- NOTE | 2021-07-27 05:39 | NUR ---
Pt got up with 4ww and went to bathroom.Patient back in bed using lotion.
--- NOTE | 2021-07-27 06:30 | NUR ---
PATIENT RECEIVED SLEEPING SUPINE IN BED UPON CHANGE OF SHIFT. RESPIRATIONS EVEN, UNLABORED. NO S/S OF DISTRESS. WILL CONTINUE TO MONITOR.
[2021-07-27] MEDS: tetrahydrozoline 0.05% 15ml ophthalmic drops EACHEYE SCH ×2 (08:00→20:13)
[2021-07-27] MEDS: budesonide 0.5mg/2ml UD nebule IH SCH ×2 (08:00→20:00)
[2021-07-27] MEDS: famotidine 20mg tablet PO SCH ×2 (08:26→20:16)
[2021-07-27] MEDS: levoTHYROXINE 25mcg tablet PO SCH (08:27)
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
[2021-07-27] MEDS: furosemide 20MG tablet PO SCH ×2 (09:10→20:14)
[2021-07-27] MEDS: docusate sod 100mg capsule PO SCH ×2 (09:11→20:14)
[2021-07-27] MEDS: diltiazem CD 120mg capsule (once-daily) PO SCH (09:11)
[2021-07-27] MEDS: apixaban 5mg tablet PO SCH ×2 (09:11→20:16)
[2021-07-27] MEDS: metoprolol tartrate 50mg tablet PO SCH ×2 (09:11→20:00)
[2021-07-27] MEDS: losartan 50mg tablet PO SCH (09:11)
[2021-07-27] MEDS: oxybutynin 5mg tablet PO SCH ×3 (09:12→20:16)
[2021-07-27] MEDS: ferrous sulfate 325mg tablet PO SCH ×2 (09:12→20:16)
[2021-07-27] MEDS: allopurinol 300 MG tablet PO SCH (09:12)
[2021-07-27] MEDS: lamoTRIgine 100mg tablet PO SCH ×2 (09:12→20:16)
[2021-07-27] MEDS: insulin Lispro (HumaLOG) vial - multi-dose SQ SCH (09:33)
--- NOTE | 2021-07-27 10:30 | NUR ---
PATIENT OBSERVED WALKING TO AND FROM THE BATHROOM WITH HER 4WW. SHE PERFORMS HER OWN PERSONAL HYGIENE CARE. PATIENT ASKED THIS EMERGENCY MEDICINE PHYSICIAN ASSISTANT FOR MORE BRIEFS AND WAS GIVEN A CLEAN CHANGE OF CLOTHING. SHE CONTINUES MAKING GRANDIOSE STATEMENTS TOWARD STAFF, ENDORSING THAT SHE "CAN DO THIS JOB BETTER". SHE CONTINUES TALKING TO HERSELF ALL DAY, MAKING RUDE AND DEMEANING COMMENTS ABOUT OTHER PEOPLE ON THE UNIT. WILL CONTINUE TO MONITOR.
--- NOTE | 2021-07-27 12:35 | NUR ---
PATIENT SITTING UP IN BED EATING LUNCH. SHE COMPLAINED ABOUT EVERY SINGLE THING THAT WAS SERVED TO HER AND ASKED STAFF TO BRING HER ADDITIONAL SNACKS AND JUICES. WHEN THIS ARCHITECTURE INTERNSHIP INFORMED PATIENT OF CARB CONTROLLED DIET SHE STATED, "I HAVE BEEN A DIABETIC MY WHOLE DAMN LIFE YOU CAN'T TELL ME WHAT I AM GOING TO EAT". PATIENT OBSERVED SITTING IN BED TALKING TO HERSELF. WILL CONTINUE TO MONITOR.
--- NOTE | 2021-07-27 14:30 | NUR ---
PATIENT SITTING IN HER ROOM AT THIS TIME. SHE CONTINUES TALKING TO HERSELF AND TALKING ABOUT STAFF. NO CHANGES AT THIS TIME.
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
--- NOTE | 2021-07-27 19:00 | NUR ---
Pt was friendly and cooperative with this RN. Smiling and stating she had a good day.
[2021-07-27] MEDS: atorvastatin 10mg tablet PO SCH (20:16)
[2021-07-27] MEDS: Melatonin 3mg tablet PO SCH (20:16)
--- NOTE | 2021-07-27 21:30 | NUR ---
Pt took all HS medications, has been in the bathroom for awhile attempting to get cleaned up.
--- NOTE | 2021-07-27 23:22 | NUR ---
Pt is awake looking at her coloring books and folding her socks.
--- NOTE | 2021-07-28 01:10 | NUR ---
Pt appears to be sleeping.
--- NOTE | 2021-07-28 04:03 | NUR ---
Pt up to the bathroom, back to bed.
[2021-07-28] MEDS: HYDROcodone/acetaminophen 5mg/325mg tablet PO PRN (05:15)
[2021-07-28] MEDS: famotidine 20mg tablet PO SCH ×2 (07:33→21:19)
[2021-07-28] MEDS: allopurinol 300 MG tablet PO SCH (07:35)
[2021-07-28] MEDS: ferrous sulfate 325mg tablet PO SCH ×2 (07:35→21:19)
[2021-07-28] MEDS: docusate sod 100mg capsule PO SCH ×2 (07:35→21:19)
[2021-07-28] MEDS: apixaban 5mg tablet PO SCH ×2 (07:35→21:19)
[2021-07-28] MEDS: oxybutynin 5mg tablet PO SCH ×3 (07:35→21:19)
[2021-07-28] MEDS: losartan 50mg tablet PO SCH (07:36)
[2021-07-28] MEDS: furosemide 20MG tablet PO SCH ×2 (07:36→21:20)
[2021-07-28] MEDS: levoTHYROXINE 25mcg tablet PO SCH (07:36)
[2021-07-28] MEDS: lamoTRIgine 100mg tablet PO SCH ×2 (07:37→21:19)
[2021-07-28] MEDS: tetrahydrozoline 0.05% 15ml ophthalmic drops EACHEYE SCH ×2 (07:43→20:00)
[2021-07-28] MEDS: budesonide 0.5mg/2ml UD nebule IH SCH ×2 (08:00→17:55)
[2021-07-28] MEDS: metoprolol tartrate 50mg tablet PO SCH ×2 (08:00→20:00)
[2021-07-28] MEDS: diltiazem CD 120mg capsule (once-daily) PO SCH (08:00)
--- NOTE | 2021-07-28 08:30 | NUR ---
Pt. awake at bedside eating breakfast. Pt. took all medications.
[2021-07-28] MEDS: insulin Lispro (HumaLOG) vial - multi-dose SQ SCH ×2 (09:24→12:58)
--- NOTE | 2021-07-28 10:30 | NUR ---
Pt. awake at bedside coloring. 1:1 done at bedside, pt. denies all psych symptoms and wonders if she will discharge today.
--- NOTE | 2021-07-28 12:30 | NUR ---
Pt. awake at bedside and is quiet. RN informed by VIENNA office that pt.'s packet has been submitted to multiple mental health facilities.
--- NOTE | 2021-07-28 14:30 | NUR ---
Pt. in bed talking on phone.
--- NOTE | 2021-07-28 16:30 | NUR ---
Pt. asleep in bed. Normal R&R of respirations observed.
[2021-07-28] MEDS: HYDROcodone/acetaminophen 10/325mg tab PO PRN (17:12)
--- NOTE | 2021-07-28 17:53 | NUR ---
Pt. reports she had a large, formed bowel movements.
[2021-07-28] MEDS: albuterol 2.5 MG/3 ML nebule NEB PRN (17:55)
--- NOTE | 2021-07-28 18:57 | NUR ---
Pt sitting at the bed eating her dinner, no distress. Pt cooperative and friendly with care.
[2021-07-28] MEDS: atorvastatin 10mg tablet PO SCH (21:19)
[2021-07-28] MEDS: Melatonin 3mg tablet PO SCH (21:20)
--- NOTE | 2021-07-28 22:25 | NUR ---
Pt appears to be sleeping.
--- NOTE | 2021-07-29 00:35 | NUR ---
Pt up to the bathroom, pt back in bed in sleeping.
--- NOTE | 2021-07-29 04:17 | NUR ---
Pt appears to be sleeping.
--- NOTE | 2021-07-29 06:30 | NUR ---
Pt is up sitting at the bedside moving things around on her bedside table. Pt request Pepsid and Levothyroxine be administered an hour before breakfast. Pt is using towels and hosptal scrubs as rugs along her bedside. She ambulates with a FWW to the restroom.
[2021-07-29] MEDS: famotidine 20mg tablet PO SCH ×2 (06:57→20:31)
[2021-07-29] MEDS: levoTHYROXINE 25mcg tablet PO SCH (06:58)
[2021-07-29] MEDS: budesonide 0.5mg/2ml UD nebule IH SCH ×2 (07:33→21:29)
[2021-07-29] MEDS: albuterol 2.5 MG/3 ML nebule NEB PRN ×2 (07:33→21:29)
[2021-07-29] MEDS: tetrahydrozoline 0.05% 15ml ophthalmic drops EACHEYE SCH ×2 (08:00→20:28)
--- NOTE | 2021-07-29 08:15 | NUR ---
Pt is up sitting at the bedside talking nonstop. She talked about her history at [facility] for the treatment of Bipolar. She states the only medication that helps her is the Lamictal. She does not like "mood stabilizers." Pt wants to be discharged to the streets. [facility] here to work with her.
[2021-07-29] MEDS: docusate sod 100mg capsule PO SCH ×2 (09:10→20:33)
[2021-07-29] MEDS: diltiazem CD 120mg capsule (once-daily) PO SCH (09:10)
[2021-07-29] MEDS: furosemide 20MG tablet PO SCH ×2 (09:10→20:31)
[2021-07-29] MEDS: ferrous sulfate 325mg tablet PO SCH ×2 (09:10→20:28)
[2021-07-29] MEDS: apixaban 5mg tablet PO SCH ×2 (09:10→20:32)
[2021-07-29] MEDS: lamoTRIgine 100mg tablet PO SCH ×2 (09:10→20:33)
[2021-07-29] MEDS: losartan 50mg tablet PO SCH (09:11)
[2021-07-29] MEDS: allopurinol 300 MG tablet PO SCH (09:36)
[2021-07-29] MEDS: metoprolol tartrate 50mg tablet PO SCH ×2 (09:36→20:32)
[2021-07-29] MEDS: oxybutynin 5mg tablet PO SCH ×3 (09:36→20:31)
[2021-07-29] MEDS: insulin Lispro (HumaLOG) vial - multi-dose SQ SCH ×2 (09:51→19:35)
--- NOTE | 2021-07-29 10:23 | NUR ---
Pt continues to sit on the side of the bed, rocking and talking non stop. She appears to be tired but is fighting resting. [facility] is working on a discharge plan. Pt agreed to let the worker, Sarahi, from call a few family members for discharge planning.
--- NOTE | 2021-07-29 11:02 | NUR ---
Pt continues to sit at the side of the bed rocking and talking.
--- NOTE | 2021-07-29 13:00 | NUR ---
Pt ate before getting her blood sugars done. She was asked to wait for a few minutes but began eating. Pt reports, "I don't even use it at home." She then apologized. Pt has been talking non stop. She is cooperative with staff when she is asked to slow down and not talk so much.
[2021-07-29] MEDS: HYDROcodone/acetaminophen 5mg/325mg tablet PO PRN ×2 (14:19→18:44)
--- NOTE | 2021-07-29 14:25 | NUR ---
Pt continues to sit on the side of the bed rocking and talking non stop. She reports pain 10/10. [place] given.
--- NOTE | 2021-07-29 16:33 | NUR ---
Pt walking around the unit for exercise. She has been calm and cooperative since taking [place] 5's. She reports less pain which puts her in a better mood.
--- NOTE | 2021-07-29 16:47 | NUR ---
Pt in the BR.
--- NOTE | 2021-07-29 17:49 | NUR ---
Pt resting quietly on the bed waiting for dinner
[2021-07-29] MEDS: Melatonin 3mg tablet PO SCH (20:29)
[2021-07-29] MEDS: atorvastatin 10mg tablet PO SCH (20:30)
--- NOTE | 2021-07-29 20:32 | NUR ---
Received patient at 1830. Patient sitting on edge of bed. Patient appears agitated and yelling at staff members. Patient keeps refusing dinner. Nurse eventually able to get patient to eat snack and calm down. Patient was given 2 units of humalog since she refused dinner. Patient took all night medications.
--- NOTE | 2021-07-29 22:35 | NUR ---
Patient continues to sit on edge of bed reading magazine quietly
--- NOTE | 2021-07-30 00:39 | NUR ---
Patient transfered to the bathroom and then went to bed. Patient is sleeping
--- NOTE | 2021-07-30 04:32 | NUR ---
Patient awake reading books and preforming hygiene care. Patient self ambulates to the restroom.
--- NOTE | 2021-07-30 05:44 | NUR ---
Patient pacing around unit and talking to staff
--- NOTE | 2021-07-30 06:56 | NUR ---
Received pt. sitting on her walking. Patient is talking to herself. No s/s of distress noted.
--- NOTE | 2021-07-30 07:47 | NUR ---
Accucheck performed 150 blood glucose monitoring
[2021-07-30] MEDS: levoTHYROXINE 25mcg tablet PO SCH (08:05)
[2021-07-30] MEDS: metoprolol tartrate 50mg tablet PO SCH ×2 (08:05→20:39)
[2021-07-30] MEDS: diltiazem CD 120mg capsule (once-daily) PO SCH (08:06)
[2021-07-30] MEDS: docusate sod 100mg capsule PO SCH ×2 (08:06→20:41)
[2021-07-30] MEDS: ferrous sulfate 325mg tablet PO SCH ×2 (08:06→20:40)
[2021-07-30] MEDS: lamoTRIgine 100mg tablet PO SCH ×2 (08:07→20:41)
[2021-07-30] MEDS: allopurinol 300 MG tablet PO SCH (08:07)
[2021-07-30] MEDS: furosemide 20MG tablet PO SCH ×2 (08:07→20:41)
[2021-07-30] MEDS: losartan 50mg tablet PO SCH (08:08)
[2021-07-30] MEDS: famotidine 20mg tablet PO SCH ×2 (08:08→20:40)
[2021-07-30] MEDS: oxybutynin 5mg tablet PO SCH ×3 (08:09→20:41)
[2021-07-30] MEDS: apixaban 5mg tablet PO SCH ×2 (08:09→20:40)
[2021-07-30] MEDS: tetrahydrozoline 0.05% 15ml ophthalmic drops EACHEYE SCH ×2 (08:10→20:42)
[2021-07-30] MEDS: insulin Lispro (HumaLOG) vial - multi-dose SQ SCH (09:02)
--- NOTE | 2021-07-30 09:07 | NUR ---
Patient is hyperverbal and examines each pill before taking. Pt requests her thyroid be given 1 hr before her meal. 5 units insulin given. Patient is requesting discharge.
[2021-07-30] MEDS: budesonide 0.5mg/2ml UD nebule IH SCH ×2 (09:14→21:49)
[2021-07-30] MEDS: albuterol 2.5 MG/3 ML nebule NEB PRN ×2 (09:14→21:49)
--- NOTE | 2021-07-30 09:16 | NUR ---
Patient receiving breathing treatment.
[2021-07-30] MEDS: HYDROcodone/acetaminophen 5mg/325mg tablet PO PRN (10:55)
--- NOTE | 2021-07-30 11:32 | NUR ---
Patient is complaining of pain, [place] 5 mg administered with good effect.
--- NOTE | 2021-07-30 13:21 | NUR ---
Patient up to the restroom via walker. Patient stable with walker.
--- NOTE | 2021-07-30 15:41 | NUR ---
Patient has been talking to staff for most of the day. Now sitting on her walker. No naps today.
--- NOTE | 2021-07-30 18:30 | NUR ---
Assumed care of pt, pt sitting up in bed eating her dinner. Pt is pleasant and talkative. Vitals WNL, luing sounds clear, no edema observed. LABORATORY CHEMICAL ASSISTANT<3, sensation intact. Pt up to use the restroom.
--- NOTE | 2021-07-30 20:30 | NUR ---
PT was medication compliant with all HS meds. PT used bathroom again. PT is in pleasant mood.
[2021-07-30] MEDS: Melatonin 3mg tablet PO SCH (20:39)
[2021-07-30] MEDS: atorvastatin 10mg tablet PO SCH (20:39)
--- NOTE | 2021-07-31 01:00 | NUR ---
Pt asleep on R side respirations even and unlabored
--- NOTE | 2021-07-31 03:30 | NUR ---
Pt OOB to restroom.
--- NOTE | 2021-07-31 05:33 | NUR ---
Pt asleep on L side respirations even and unlabored
[2021-07-31] MEDS: albuterol 2.5 MG/3 ML nebule NEB PRN ×2 (07:12→21:10)
[2021-07-31] MEDS: budesonide 0.5mg/2ml UD nebule IH SCH ×2 (07:12→21:10)
[2021-07-31] MEDS: famotidine 20mg tablet PO SCH ×2 (07:54→20:37)
[2021-07-31] MEDS: tetrahydrozoline 0.05% 15ml ophthalmic drops EACHEYE SCH ×2 (07:54→20:32)
[2021-07-31] MEDS: levoTHYROXINE 25mcg tablet PO SCH (07:54)
[2021-07-31] MEDS: HYDROcodone/acetaminophen 5mg/325mg tablet PO PRN (08:01)
--- NOTE | 2021-07-31 08:30 | NUR ---
Pt. awake and eating breakfast at bedside. Pt. denies SI/HI, A/V hallucinations. Pt. is tearful, talking about the of her parents. Pt. states, "I want to be discharged. It's just as cold in here as it is outside". Pt. given warm blanket and coffee.
[2021-07-31] MEDS: metoprolol tartrate 50mg tablet PO SCH ×2 (08:51→20:36)
[2021-07-31] MEDS: furosemide 20MG tablet PO SCH ×2 (08:51→20:37)
[2021-07-31] MEDS: allopurinol 300 MG tablet PO SCH (08:52)
[2021-07-31] MEDS: diltiazem CD 120mg capsule (once-daily) PO SCH (08:52)
[2021-07-31] MEDS: apixaban 5mg tablet PO SCH ×2 (08:52→20:37)
[2021-07-31] MEDS: ferrous sulfate 325mg tablet PO SCH ×2 (08:52→20:37)
[2021-07-31] MEDS: lamoTRIgine 100mg tablet PO SCH ×2 (08:52→20:35)
[2021-07-31] MEDS: losartan 50mg tablet PO SCH (08:52)
[2021-07-31] MEDS: oxybutynin 5mg tablet PO SCH ×3 (08:52→20:35)
[2021-07-31] MEDS: docusate sod 100mg capsule PO SCH ×2 (08:52→20:36)
[2021-07-31] MEDS: insulin Lispro (HumaLOG) vial - multi-dose SQ SCH ×2 (09:16→14:47)
--- NOTE | 2021-07-31 10:30 | NUR ---
Pt. awake and sitting up in bed, talking with staff.
--- NOTE | 2021-07-31 12:30 | NUR ---
Pt. in bathroom cleaning up.
--- NOTE | 2021-07-31 14:30 | NUR ---
Pt. awake and sitting at bedside talking with her neighbor.
--- NOTE | 2021-07-31 16:30 | NUR ---
Pt. is awake and sitting at bedside eating a snack.
--- NOTE | 2021-07-31 18:26 | NUR ---
Pt. is awake and eating dinner.
--- NOTE | 2021-07-31 19:31 | NUR ---
The patient is social and friendly with staff. She is very mildly intrussive with others. She is also mildly labile and was up at the nursing station tearful.
[2021-07-31] MEDS: Melatonin 3mg tablet PO SCH (20:36)
[2021-07-31] MEDS: atorvastatin 10mg tablet PO SCH (20:36)
--- NOTE | 2021-07-31 20:48 | NUR ---
The patient is awake and hyperverbal. She is angry with various staff members. She is wanting to report the staff of another patient. She was compliant with taking her evening medication but is unwilling to take any additional prn medications for agitation.
--- NOTE | 2021-07-31 20:49 | NUR ---
Minh valverde in [facility] - 07/31/21 at 2050 by CHAN The patient is resting on her bed.
--- NOTE | 2021-07-31 23:27 | NUR ---
The patient is awake and sitting by her bedside commenting on the state of the unit and things she feels are not up to par.
--- NOTE | 2021-08-01 00:51 | NUR ---
The patient is very irritable and verbalizes paranoia of staff. She is asking for a bedside commode "because I don't trust anyone"
--- NOTE | 2021-08-01 02:18 | NUR ---
THe patient is talking quietly nonstop to no one in particular about her general discontent about everything
--- NOTE | 2021-08-01 03:28 | NUR ---
The patient is awake and talking to no one in particular. She refused PRN sleep medication
--- NOTE | 2021-08-01 05:03 | NUR ---
THe patient has been sleeping in short periods but awakens easily. She is refusing to lay down but is napping off and on on her walker
[2021-08-01] MEDS: famotidine 20mg tablet PO SCH ×2 (07:15→21:19)
[2021-08-01] MEDS: levoTHYROXINE 25mcg tablet PO SCH (07:15)
[2021-08-01] MEDS: HYDROcodone/acetaminophen 10/325mg tab PO PRN (07:18)
[2021-08-01] MEDS: tetrahydrozoline 0.05% 15ml ophthalmic drops EACHEYE SCH ×2 (08:00→20:00)
[2021-08-01] MEDS: lamoTRIgine 100mg tablet PO SCH ×2 (08:00→20:00)
[2021-08-01] MEDS: budesonide 0.5mg/2ml UD nebule IH SCH ×2 (08:07→21:32)
--- NOTE | 2021-08-01 08:30 | NUR ---
Pt. ate breakfast and pacing hallway with neighbor. Pt. is pleasant and smiling. RN informed by certified social workers in health care that pt. will be placed in a hotel within the next 3 days after f/u services are established.
[2021-08-01] MEDS: allopurinol 300 MG tablet PO SCH (08:59)
[2021-08-01] MEDS: ferrous sulfate 325mg tablet PO SCH ×2 (09:00→21:20)
[2021-08-01] MEDS: metoprolol tartrate 50mg tablet PO SCH ×2 (09:00→20:00)
[2021-08-01] MEDS: diltiazem CD 120mg capsule (once-daily) PO SCH (09:00)
[2021-08-01] MEDS: oxybutynin 5mg tablet PO SCH ×3 (09:00→21:20)
[2021-08-01] MEDS: furosemide 20MG tablet PO SCH ×2 (09:01→21:19)
[2021-08-01] MEDS: losartan 50mg tablet PO SCH (09:01)
[2021-08-01] MEDS: apixaban 5mg tablet PO SCH ×2 (09:01→21:20)
[2021-08-01] MEDS: insulin Lispro (HumaLOG) vial - multi-dose SQ SCH ×3 (09:24→18:34)
[2021-08-01] MEDS ORDERED: docusate sod 100mg capsule PO ONE (09:40)
--- NOTE | 2021-08-01 10:30 | NUR ---
Pt. awake and washing hair with shower cap at bedside.
--- NOTE | 2021-08-01 12:30 | NUR ---
Pt. awake and eating lunch at bedside.
--- NOTE | 2021-08-01 14:30 | NUR ---
Pt. asleep in bed in supine position. Normal R&R of respirations observed.
--- NOTE | 2021-08-01 16:30 | NUR ---
Pt. awake and sitting at bedside. Pt. in no apparent distress.
--- NOTE | 2021-08-01 18:28 | NUR ---
Pt. awake at bedside eating dinner.
--- NOTE | 2021-08-01 18:28 | NUR ---
Pt. awake at bedside, eating dinner and watching TV
--- NOTE | 2021-08-01 18:30 | NUR ---
Patient is socializing lightly with others. No distress. W/D, good color.
--- NOTE | 2021-08-01 19:30 | NUR ---
Patient has eaten her dinner in full. No distress. Patient is well oriented. She denies S/I, H/I, or any hallucinations.
--- NOTE | 2021-08-01 20:50 | NUR ---
Patient has been medication compliant. She now rests quietly. Frequent rounding for patient safety. Patient has paced occasionally, being social, she gradually returned to bed and sleep.
[2021-08-01] MEDS ORDERED: docusate sod 100mg capsule PO SCH (21:00)
[2021-08-01] MEDS: atorvastatin 10mg tablet PO SCH (21:15)
[2021-08-01] MEDS: Melatonin 3mg tablet PO SCH (21:19)
[2021-08-01] MEDS: albuterol 2.5 MG/3 ML nebule NEB PRN (21:32)
--- NOTE | 2021-08-01 23:06 | NUR ---
Patient is sleeping quietly, no distress.
--- NOTE | 2021-08-02 02:33 | NUR ---
Patient is sleeping quietly, low fowlers position in bed.
--- NOTE | 2021-08-02 03:07 | NUR ---
Sleeping in bed, low fowlers position. No distress.
--- NOTE | 2021-08-02 04:00 | NUR ---
Patient is awake, she sits quietly at bedside. No distress.
--- NOTE | 2021-08-02 04:29 | NUR ---
Patient up to bedside commode. Ate snacks. Now sitting quietly at bedside.
--- NOTE | 2021-08-02 06:04 | NUR ---
Patient is awake, sitting at bedside. No distress.
--- NOTE | 2021-08-02 06:25 | NUR ---
Patient ambulatory to BR, steady gait with walker. No distress observed. Continue to monitor.
--- NOTE | 2021-08-02 07:25 | NUR ---
Patient comes up to speak to RN. Patient states "those other 2 nurses researched my history and it's not right. They found out things about me and I know it's illegal!" RN nods her head at patient and she goes back to sitting in front of her room on her walker. Continue to monitor.
[2021-08-02] MEDS: docusate sod 100mg capsule PO SCH (08:00)
[2021-08-02] MEDS: budesonide 0.5mg/2ml UD nebule IH SCH ×2 (08:00→20:09)
[2021-08-02] MEDS: metoprolol tartrate 50mg tablet PO SCH ×2 (08:00→20:00)
--- NOTE | 2021-08-02 08:03 | NUR ---
Patient refused BG check and medication. Patient states RN talking to staff whom have done her wrong and won't comply with requests. Continue to monitor.
[2021-08-02] MEDS: tetrahydrozoline 0.05% 15ml ophthalmic drops EACHEYE SCH ×2 (08:59→20:56)
[2021-08-02] MEDS: allopurinol 300 MG tablet PO SCH (09:24)
[2021-08-02] MEDS: famotidine 20mg tablet PO SCH ×2 (09:24→20:00)
[2021-08-02] MEDS: ferrous sulfate 325mg tablet PO SCH ×2 (09:24→20:00)
[2021-08-02] MEDS: furosemide 20MG tablet PO SCH ×2 (09:25→20:00)
[2021-08-02] MEDS: losartan 50mg tablet PO SCH (09:25)
[2021-08-02] MEDS: apixaban 5mg tablet PO SCH ×2 (09:25→20:00)
[2021-08-02] MEDS: oxybutynin 5mg tablet PO SCH ×3 (09:25→21:11)
[2021-08-02] MEDS: lamoTRIgine 100mg tablet PO SCH ×2 (09:26→20:00)
[2021-08-02] MEDS: levoTHYROXINE 25mcg tablet PO SCH (09:26)
[2021-08-02] MEDS: diltiazem CD 120mg capsule (once-daily) PO SCH (09:27)
--- NOTE | 2021-08-02 09:31 | NUR ---
RN allowed to give patient her medication. Patient is now walking the [place]es. Continue to monitor.
--- NOTE | 2021-08-02 10:50 | NUR ---
Patient apologized to RN. Patient did take her medication late. RN gave patient fresh ice water. No distress observed. Continue to monitor.
--- NOTE | 2021-08-02 12:12 | NUR ---
Patient's BG 278. Lunch given to patient. Continue to monitor.
[2021-08-02] MEDS: insulin Lispro (HumaLOG) vial - multi-dose SQ SCH ×2 (13:35→20:52)
--- NOTE | 2021-08-02 14:39 | NUR ---
Patient non-stop talking outloud but not addressing anyone inparticular. Continue to monitor.
--- NOTE | 2021-08-02 15:18 | NUR ---
Patient sitting on her walker in front of her bed. Talking almost nonstop to staff and to herself. Continue to monitor.
--- NOTE | 2021-08-02 17:11 | NUR ---
Patient speaking to RUBEN Palm. Patient tearful and Deedee giving patient a much needed hug. Continue to monitor.
[2021-08-02] MEDS: albuterol 2.5 MG/3 ML nebule NEB PRN (20:09)
--- NOTE | 2021-08-02 20:30 | NUR ---
Patient recevied eating her dinner. Patient is upset with the tempature of the food and will only eat a quarter of her dinner
--- NOTE | 2021-08-02 20:37 | NUR ---
Patient is sitting on walker talking to tech and eating snack
[2021-08-02] MEDS: atorvastatin 10mg tablet PO SCH (21:11)
[2021-08-02] MEDS: Melatonin 3mg tablet PO SCH (21:11)
[2021-08-03] MEDS: HYDROcodone/acetaminophen 5mg/325mg tablet PO PRN ×2 (00:25→20:45)
--- NOTE | 2021-08-03 00:32 | NUR ---
Patient is asleep sitting up on walker. Patient refuses to lay down in bed.
--- NOTE | 2021-08-03 02:37 | NUR ---
Patient has finally laid down in bed after taking a norco 5mg for body aches
--- NOTE | 2021-08-03 04:32 | NUR ---
Patient is sleeping quietly, breaths are even and unlabored
--- NOTE | 2021-08-03 05:56 | NUR ---
Patient is sitting up on walker quietly watching staff
--- NOTE | 2021-08-03 06:30 | NUR ---
PATIENT RECEIVED SITTING ON HER 4WW IN ROOM QUIETLY LOOKING AROUND. NO S/S OF DISTRESS OR COMPLAINTS AT THIS TIME. WILL CONTINUE TO MONITOR.
--- NOTE | 2021-08-03 08:35 | NUR ---
PATIENT HAD A BLOOD SUGAR OF 160 BEFORE BREAKFAST. SHE IS NOTED SITTING IN HER ROOM EATING AT THIS TIME. SHE WAS RECEPTIVE TO MORNING ASSESSMENT AND RTN MEDICATION. PATIENT NOTED TELLING THIS HOOP DRIVING MACHINE OPERATOR HELPER THAT SHE "DOES NOT FOLLOW ANY DIET THAT WE ARE TRYING TO PUT HER ON". PATIENT ALSO NOTED CALLING THE KITCHEN STAFF "STUPID" WHILE COMPLAINING ABOUT HER FOOD. PATIENT IS NOTED TO BE DEMEANING AND INAPPROPRIATE TOWARD STAFF OFTEN NOTED MAKING DEROGATORY RACIAL STATEMENTS.
[2021-08-03] MEDS: tetrahydrozoline 0.05% 15ml ophthalmic drops EACHEYE SCH ×2 (08:39→20:45)
[2021-08-03] MEDS: docusate sod 100mg capsule PO SCH (08:40)
[2021-08-03] MEDS: diltiazem CD 120mg capsule (once-daily) PO SCH (08:40)
[2021-08-03] MEDS: oxybutynin 5mg tablet PO SCH ×3 (08:41→21:00)
[2021-08-03] MEDS: apixaban 5mg tablet PO SCH ×2 (08:41→20:00)
[2021-08-03] MEDS: losartan 50mg tablet PO SCH (08:41)
[2021-08-03] MEDS: furosemide 20MG tablet PO SCH ×2 (08:42→20:00)
[2021-08-03] MEDS: ferrous sulfate 325mg tablet PO SCH ×2 (08:42→20:00)
[2021-08-03] MEDS: lamoTRIgine 100mg tablet PO SCH ×2 (08:42→20:00)
[2021-08-03] MEDS: famotidine 20mg tablet PO SCH ×2 (08:43→20:00)
[2021-08-03] MEDS: metoprolol tartrate 50mg tablet PO SCH ×2 (08:43→20:00)
[2021-08-03] MEDS: levoTHYROXINE 25mcg tablet PO SCH (08:43)
[2021-08-03] MEDS: allopurinol 300 MG tablet PO SCH (08:44)
[2021-08-03] MEDS: insulin Lispro (HumaLOG) vial - multi-dose SQ SCH ×2 (09:20→20:45)
[2021-08-03] MEDS: budesonide 0.5mg/2ml UD nebule IH SCH ×2 (09:23→20:29)
--- NOTE | 2021-08-03 10:30 | NUR ---
PATIENT OBSERVED AMBULATING AROUND THE UNIT WITH HER 4WW. PATIENT ENDORSED TO STAFF THAT SHE IS "TRYING TO GET SOME EXERCISE". NO S/S OF DISTRESS OR COMPLAINTS AT THIS TIME.
--- NOTE | 2021-08-03 12:35 | NUR ---
PATIENT NOTED TO BE IN THE RESTROOM FOR OVER 45 MINUTES WHILE "CLEANING UP" THIS MORNING. SHE WAS GIVEN PERSONAL HYGIENE SUPPLIES AND A CLEAN SET OF GREEN SCRUBS WHICH SHE CHANGED IN TO. PATIENT RETREATED BACK TO HER ROOM SHORTLY AFTER TO EAT LUNCH. PATIENT LEFT AN EXCESSIVE AMOUNT OF PAPER TOWELS AND WATER ALL OVER THE GROUND IN THE BATHROOM UPON EXITING. NO CHANGES NOTED AT THIS TIME.
--- NOTE | 2021-08-03 14:30 | NUR ---
PATIENT OBSERVED WALKING AROUND THE UNIT WHILE TALKING TO HERSELF ENDORSING THAT STAFF ARE "TRYING TO KILL HER". PATIENT HAD PREVIOUSLY BEEN LAUGHING AND THANKING STAFF FOR BRINGING HER HOT COCOA. SHE PRESENTS PARANOID AND RESTLESS, NOTED TALKING TO HERSELF ALL DAY LONG.
--- NOTE | 2021-08-03 16:35 | NUR ---
PATIENT NOTED QUIETLY SITTING IN HER ROOM AT THIS TIME. NO S/S OF DISTRESS OR CHANGES NOTED. WILL CONTINUE TO MONITOR.
--- NOTE | 2021-08-03 20:33 | NUR ---
Patient was recevied sitting on walker in room. Patient appears agitated but mood seems to be improving. Patient talked to county about going leaving tomorrow and going to a hotel , patient was excited to got to the one she likes. Patient was given dinner and ate 79 gm of carbs. Patients blood sugar was 208 and patient was given 5 units of humalog. Patient continues to sit on walker talking to all staff and patients that walk by. Patient was complaing of pain 10/10 and was given norco 5 mg. Nurse attempted to give patient night medications and patient refused every thing but her eye drops. Nurse will wait an hour and try again.
[2021-08-03] MEDS: atorvastatin 10mg tablet PO SCH (21:00)
[2021-08-03] MEDS: Melatonin 3mg tablet PO SCH (21:00)
--- NOTE | 2021-08-03 22:33 | NUR ---
Patient is sitting on her walker reading a book. Patient finally took night medications. Patient becomes easily agitated when it comes to her medicatons. Whether it be which ones she is takiing or how much. Nurse had to work on keeping patient calm and getting her to take medications.
--- NOTE | 2021-08-04 00:34 | NUR ---
Patient is currently sleeping in bed
--- NOTE | 2021-08-04 02:34 | NUR ---
Patient is observed sleeping, pt complians about the lasix making her have to get up multiple times throught the night
--- NOTE | 2021-08-04 04:36 | NUR ---
Patient is sitting on walker reading book quietly
--- NOTE | 2021-08-04 06:30 | NUR ---
PATIENT RECEIVED QUIETLY SITTING ON HER 4WW IN HER ROOM. NO S/S OF DISTRESS. WILL CONTINUE TO MONITOR.
[2021-08-04 06:37] VITALS: BP_DIAS 56
--- NOTE | 2021-08-04 07:48 | NUR ---
PATIENT IS OBSERVED WALKING AROUND THE UNIT WITH HER 4WW. SHE APPROACHED THE NURSES STATION ASKING FOR COFFEE. NO CHANGES NOTED AT THIS TIME.
[2021-08-04] MEDS: budesonide 0.5mg/2ml UD nebule IH SCH (08:47)
[2021-08-04] MEDS: lamoTRIgine 100mg tablet PO SCH (08:59)
[2021-08-04] MEDS: tetrahydrozoline 0.05% 15ml ophthalmic drops EACHEYE SCH (08:59)
[2021-08-04] MEDS: levoTHYROXINE 25mcg tablet PO SCH (09:00)
--- NOTE | 2021-08-04 09:00 | NUR ---
PATIENT OBSERVED EATING BREAKFAST AT THIS TIME. SHE INITIALLY REFUSED TO TAKE MORNING MEDICATION, HOWEVER, ENDED UP BEING COMPLIANT WITH MEDS. NO S/S OF DISTRESS. PATIENT WAS OBSERVED AMBULATING FROM TO AND FROM THE BATHROOM WITH HER 4WW BEFORE RETREATING BACK TO HER ROOM. WILL CONTINUE TO MONITOR.
[2021-08-04] MEDS: diltiazem CD 120mg capsule (once-daily) PO SCH (09:02)
[2021-08-04] MEDS: allopurinol 300 MG tablet PO SCH (09:03)
[2021-08-04] MEDS: docusate sod 100mg capsule PO SCH (09:03)
[2021-08-04] MEDS: famotidine 20mg tablet PO SCH (09:03)
[2021-08-04] MEDS: apixaban 5mg tablet PO SCH (09:03)
[2021-08-04] MEDS: losartan 50mg tablet PO SCH (09:03)
[2021-08-04 09:04] VITALS: BP_SYST 126
[2021-08-04] MEDS: furosemide 20MG tablet PO SCH (09:04)
[2021-08-04] MEDS: oxybutynin 5mg tablet PO SCH (09:04)
[2021-08-04] MEDS: ferrous sulfate 325mg tablet PO SCH (09:04)
[2021-08-04] MEDS: metoprolol tartrate 50mg tablet PO SCH (09:04)
[2021-08-04] MEDS: insulin Lispro (HumaLOG) vial - multi-dose SQ SCH (09:55)
--- NOTE | 2021-08-04 11:47 | NUR ---
PATIENT REFUSING TO LEAVE AT THIS TIME ENDORSING THAT STAFF "STOLE HER THINGS". RV SERVICE TECHNICIAN ALEJANDRO, REGISTRATION SOFT MUD MOLDER, AND HOSPITAL SECURITY CONTACTED. RV SERVICE TECHNICIAN SPEAKING WITH PATIENT AT THIS TIME REGARDING DISCHARGE AND PATIENTS BELONGINGS.
--- NOTE | 2021-08-04 11:55 | NUR ---
PATIENT REFUSED TO SIGN FOR HER VALUABLES THAT WERE LOCKED IN THE SAFE. REGISTRATION PIPE SMOKING MACHINE OFFBEARER AND HIP HOP ARTIST AWARE. HIP HOP ARTIST INFORMED PATIENT THAT IF SHE DOES NOT SIGN FOR VALUABLES THEY WILL HAVE TO BE RETURNED TO SAFE. PATIENTS CONTINUES TO REFUSE TO SIGN FOR VALUABLES. ALL BELONGINGS ACCOUNTED FOR BY 2 STAFF NURSES AND SECURITY. VALUABLES RETURNED TO ER REGISTRATION SAFE. PATIENT WAS ADVISED THAT SHE CAN RETURN TO PATROL DRIVER HER VALUABLES FROM ER AT ANY TIME.
== END 2021-08-04 13:05 | disposition home or self-care (01) ==
LOC: ER 18:36 → UNDOADMIN 07-16 01:43 → ED HOLD 07-16 01:43 → CANBEDREQ 07-22 07:45 → ED HOLD 07-31 21:33
DX: N39.0 Urinary tract infection, site not specified (principal); G93.41 Metabolic encephalopathy; F23 Brief psychotic disorder; F31.9 Bipolar disorder, unspecified; I48.91 Unspecified atrial fibrillation; E03.9 Hypothyroidism, unspecified; I10 Essential (primary) hypertension; J44.9 Chronic obstructive pulmonary disease, unspecified; J45.909 Unspecified asthma, uncomplicated
CPT/HCPCS: 36415; 70450; 70486; 71045; 71260; 72125; 74177; 80053; 80061; 80305; 80320; 81001; 81003; 82550; 82948; 83036; 83605; 83690; 83735; 83880; 84100; 84443; 85025; 85379; 85610; 85730; 87040; 87635; 90471; 90715; 93005; 94640; 94760; 96374; 99285; J1630; J1815; J2060; J2310; J3360; J3490; J7030; Q0163; Q9967; G0378

== ENCOUNTER 2022-03-19 10:14 | Emergency (ER) | payer MEDICARE, MEDICAID ==
[~2022-03-19] VITALS: Ht 165.1 cm; Wt 65.2 kg
[~2022-03-19 10:14] MED LIST changes: -ALLO100T PO; +ALLO300T2 PO; -BIOT5000 PO; +CARB15DR2 EACHEYE; -CETI-194 PO; -CHOL10002 PO; -DOXY100C76 PO; -FERR-119 PO; +FLO44IN IH; -FLUT100D2 INH; +HUM7525 SQ; +LOSA100T57 PO; -LOSA50TA64 PO; -NYSPWD TOP; -OMEG1CAP13 PO; -OSC500T PO; +OXYB5TAB16 PO; -VITA-268 PO; -VITC500T PO; +[UNRECOGNIZED DRUG - CODE] EACHEYE
[2022-03-19] MEDS ORDERED: MEMA5TAB42 PO ×2 (12:07→12:09)
[2022-03-19] MEDS ORDERED: CARI1.5C PO ×2 (12:07→12:09)
[2022-03-19] MEDS ORDERED: LAMO100T2 PO (12:07)
[2022-03-19] MEDS ORDERED: LAMO150T6 PO (12:07)
[2022-03-19] MEDS ORDERED: LITH300C PO ×2 (12:07→12:09)
[2022-03-19 12:23] VITALS: BP 131/99
== END 2022-03-19 12:24 | disposition home or self-care (01) ==
LOC: ER 10:14
DX: Z00.00 Encounter for general adult medical examination without abnormal findings (principal); I11.0 Hypertensive heart disease with heart failure; I50.9 Heart failure, unspecified; E11.9 Type 2 diabetes mellitus without complications; J44.9 Chronic obstructive pulmonary disease, unspecified; F31.9 Bipolar disorder, unspecified; Z88.0 Allergy status to penicillin; Z88.1 Allergy status to other antibiotic agents; Z91.040 Latex allergy status; Z91.09 Other allergy status, other than to drugs and biological substances
CPT/HCPCS: 99281

== ENCOUNTER 2022-03-31 14:10 | Emergency (ER) | payer MEDICARE, MEDICAID ==
[~2022-03-31] VITALS: Ht 152.4 cm; Wt 65.9 kg
[~2022-03-31 14:10] MED LIST changes: +CARI1.5C PO; +LAMO150T6 PO; +LITH300C PO; +MEMA5TAB42 PO
[2022-03-31 14:15] VITALS: BP 117/75
[2022-03-31 16:38] LABS: BASOPHILS % (AUTO) 0.4 % (0-1); EOSINOPHILS # (AUTO) 0.1 X10'3 (0-0.9); EOSINOPHILS % (AUTO) 0.7 % (0-6); HEMATOCRIT 39.5 % (35.0-45.0); HEMOGLOBIN 13.1 g/dl (12.0-16.0); LYMPHOCYTES # (AUTO) 1.2 X10'3 (1.1-4.8); LYMPHOCYTES % (AUTO) 9.7 % (21-51); MEAN CORPUSCULAR HEMOGLOBIN 32.5 PG (27.0-31.0); MEAN CORPUSCULAR HGB CONC 33.1 g/dL (33.0-36.5); MEAN CORPUSCULAR VOLUME 98.2 FL (78-98); MONOCYTES # (AUTO) 0.6 X10'3 (0-0.9); MONOCYTES % (AUTO) 4.5 % (2-12); NEUTROPHILS # (AUTO) 10.3 X10'3 (1.8-7.7); NEUTROPHILS % (AUTO) 84.7 % (42-75); PLATELET COUNT 303 X10'3 (140-440); RED BLOOD COUNT 4.02 X10'6 (4.20-5.60); RED CELL DISTRIBUTION WIDTH 15.2 % (11.5-14.5); WHITE BLOOD COUNT 12.1 X10'3 (4.5-11.0)
[2022-03-31 16:51] LABS: ALANINE AMINOTRANSFERASE 31 U/L (12-78); ALBUMIN 4.2 G/DL (3.4-5.0); ALKALINE PHOSPHATASE 94 IU/L (46-116); ANION GAP 9 (8-16); ASPARTATE AMINO TRANSFERASE 27 U/L (10-37); BILIRUBIN,TOTAL 0.6 MG/DL (0.1-1.0); BLOOD UREA NITROGEN 19 MG/DL (7-18); BUN/CREATININE RATIO 17.1 (6.6-38.0); CALCIUM 10.1 MG/DL (8.5-10.1); CHLORIDE 99 MMOL/L (99-107); CREATININE 1.11 MG/DL (0.40-0.90); GLUCOSE 92 MG/DL (70-104); POTASSIUM 4.2 MMOL/L (3.5-5.1); SODIUM 134 MMOL/L (135-145); TOTAL CARBON DIOXIDE 26.3 MMOL/L (24-32); TOTAL PROTEIN 8.3 G/DL (6.4-8.2); eGFR 48 ML/MIN
[2022-03-31 16:55] LABS: LIPASE 82 U/L (73-393)
[2022-03-31] MEDS ORDERED: normal saline 1000ml 1,000 ML IV ONE (17:15)
[2022-03-31 18:10] LABS: CLARITY,URINE CLEAR (Clear); COLOR,URINE YELLOW (Yellow); GLUCOSE, URINE 100 mg/dl (Neg); KETONES,URINE NEGATIVE (Neg); LEUKOCYTE ESTERASE ,URINE NEGATIVE (Neg); NITRITES, URINE NEGATIVE (Neg); OCCULT BLOOD,URINE NEGATIVE (Neg); PH,URINE 6.5 (4.8-8.0); PROTEIN,URINE NEGATIVE (Neg); UA COLLECTION TYPE STRAIGHT CATH; UROBILINOGEN,URINE 0.2 E.U/dL (0.2-1.0)
[2022-03-31] MEDS ORDERED: METR-159 PO (18:35)
[2022-03-31] MEDS ORDERED: metroNIDAZOLE-Flagyl 500mg/NS 100 ML IV STA (18:36)
--- NOTE | 2022-03-31 20:50 | NUR ---
PT REFUSED TO TAKE BELONGINGS STATING SHE WANTS THE WALKER AND ALL BELONGINGS THROWN AWAY, PLACED IN SUPPLY ROOM (LOCKED) WITH MULTIPLE PATIENT IDENTIFYING STICKERS ON ALL BELONGINGS
== END 2022-03-31 20:33 | disposition home or self-care (01) ==
LOC: ER 14:10
DX: K52.9 Noninfective gastroenteritis and colitis, unspecified (principal); R10.84 Generalized abdominal pain; I48.91 Unspecified atrial fibrillation; I11.0 Hypertensive heart disease with heart failure; I50.9 Heart failure, unspecified; J44.9 Chronic obstructive pulmonary disease, unspecified; E11.9 Type 2 diabetes mellitus without complications; G89.29 Other chronic pain; F41.9 Anxiety disorder, unspecified; F31.9 Bipolar disorder, unspecified; Z86.2 Personal history of diseases of the blood and blood-forming organs and certain disorders involving the immune mechanism; Z87.440 Personal history of urinary (tract) infections; Z98.890 Other specified postprocedural states; Z88.0 Allergy status to penicillin; Z88.1 Allergy status to other antibiotic agents; Z91.040 Latex allergy status; Z79.4 Long term (current) use of insulin; Z79.899 Other long term (current) drug therapy
CPT/HCPCS: 36415; 71045; 80053; 81003; 83605; 83690; 84145; 84484; 85025; 87040; 96361; 96365; 99284; J3490; J7030

== ENCOUNTER 2022-04-07 22:29 | Emergency (ER) | payer MEDICARE, MEDICAID ==
[~2022-04-07] VITALS: Ht 165.1 cm; Wt 64.3 kg
[~2022-04-07 22:29] MED LIST changes: +METR-159 PO
[2022-04-07 22:59] VITALS: BP 128/41
== END 2022-04-08 04:08 | disposition left against medical advice (07) ==
LOC: ER 22:32
DX: R00.2 Palpitations (principal); Z53.21 Procedure and treatment not carried out due to patient leaving prior to being seen by health care provider
CPT/HCPCS: 93005